=== PATIENT | female | born 1945 | race Hispanic/Latino ===

== ENCOUNTER 2017-01-27 18:38 | Emergency (ER) | payer MEDICARE ==
[2017-01-28 18:46] VITALS: BMI 21.7
== END 2017-01-27 19:52 | disposition left against medical advice (07) ==
LOC: ED 18:38
DX: Z02.89 Encounter for other administrative examinations (principal)

== ENCOUNTER 2017-01-28 08:15 | Inpatient (IN) | payer MEDICARE ==
[2017-01-28] MEDS ORDERED: Morphine 2 mg/ml ISec IVP STA (09:03)
[2017-01-28] MEDS: Sodium Chloride 0.9% 1,000 ML IV SCH ×2 (09:48→22:14)
[2017-01-28 09:51] LABS: ADD MANUAL DIFF? NO
--- NOTE | 2017-01-28 10:01 | ED PDOC ---
Arrival/HPI - General Chief Complaint: Lower Extremity Problem/Injury Time Seen by Provider: 01/28/17 08:48 Historian: Patient, Family (daughter) - History of Present Illness Narrative History of Present Illness (Text): 01/28/17 08:50 A 71 year old female, whose past medical history includes diabetes, left metatarsal amputation, and cardiac stents, is sent into the emergency department by senior software developer for admission. Patient reports a worsening infection to the right 5th toe for the past 2 and half weeks. She states she was placed on antibiotics by Dr. Watkins. Patient notes pain to the foot but she denies any fever, nausea, vomiting or any other complaints at this time. X Ray Service Engineer: Dr. Watkins PMD: Dr. Sands Vascular: Dr. Ramirez Time/Duration: > week Symptom Onset: Gradual Symptom Course: Worsening Quality: Other Activities at Onset: Rest Context: Home Past Medical History - Provider Review Nursing Documentation Reviewed: Yes - Past History Past History: Non-Contributing - Infectious Disease Hx of Infectious Diseases: None - Tetanus Immunization Tetanus Immunization: Unknown - Cardiac Hx Cardiac Disorders: Yes Hx Hypertension: Yes - Pulmonary Hx Chronic Obstructive Pulmonary Disease (COPD): No - Neurological Hx Neurological Disorder: Yes (neuropathy ble) Hx Transient Ischemic Attacks (TIA): No - HEENT Hx HEENT Disorder: Yes Hx Blind: No Hx Cataracts: Yes (Removed) Hx Deafness: No Hx Difficulty Chewing: No Hx Epistaxis: No Hx Glaucoma: No Hx Macular Degeneration: No - Renal Hx Renal Failure: No - Endocrine/Metabolic Hx Diabetes Mellitus Type 2: Yes - Hematological/Oncological Hx Blood Disorders: No Hx AIDS: No Hx Anemia: No Hx Cancer: No Hx Chemotherapy: No Hx Cirrhosis: No Hx Hepatitis A: No Hx Hepatitis B: No Hx Hepatitis C: No Hx Metastasis: No Hx Shingles: No Hx Unexplained Bleeding: No - Integumentary Hx Dermatological Disorder: No Hx Basal Cell Carcinoma: No Hx Eczema: No Hx Melanoma: No Hx Psoriasis: No Hx Squamous Cell Carcinoma: No - Musculoskeletal/Rheumatological Hx Musculoskeletal Disorders: No Hx Falls: No - Gastrointestinal Hx Gastrointestinal Disorders: No Hx Colostomy: No Hx Crohn's Disease: No Hx Diverticulitis: No Hx Gall Bladder Disease: No Hx Gastroesophageal Reflux: No Hx Ileostomy: No Hx Liver Failure: No Hx Pancreatitis: No HX Swallowing Problems: No Other/Comment: chronic constipation - Genitourinary/Gynecological Hx Genitourinary Disorders: No Hx Hematuria: No Hx Incontinence: No Hx Sexually Transmitted Diseases: No Hx Urinary Tract Infection: Yes Other/Comment: tubal - Psychiatric Hx Emotional Abuse: No Hx Physical Abuse: No Hx Substance Use: No - Surgical History Hx Amputation: Yes (Partial Left foot) Hx Appendectomy: Yes - Anesthesia Hx Anesthesia: Yes Hx Anesthesia Reactions: No Hx Malignant Hyperthermia: No - Suicidal Assessment Feels Threatened In Home Enviroment: No Family/Social History - Physician Review Nursing Documentation Reviewed: Yes Family/Social History: Unknown Family HX Smoking Status: Former Smoker Hx Alcohol Use: No Hx Substance Use: No Hx Substance Use Treatment: No Allergies/Home Meds Allergies/Adverse Reactions: Allergies aspartame Allergy (Mild, Verified 01/28/17 08:29) HEADACHE oxycodone Allergy (Mild, Verified 01/28/17 08:29) HEADACHE acetaminophen [From Percocet] Allergy (Verified 01/28/17 08:29) SHORTNESS OF BREATH atorvastatin calcium [From Lipitor] Allergy (Verified 01/29/17 08:34) Pt gets 'hyper' oxycodone HCl [From Percocet] Allergy (Verified 01/28/17 08:29) SHORTNESS OF BREATH Equal Allergy (Uncoded 01/28/17 08:29) HEADACHE Home Medications: Home Meds Medication Instructions Recorded Confirmed Aspirin [Ecotrin] 81 mg PO DAILY 05/21/16 01/28/17 Docusate [Colace] 100 mg PO BID 05/21/16 01/28/17 Insulin Lispro [Humalog] 0 - 7 units SQ ACHS PRN 05/21/16 01/28/17 Losartan [Cozaar] 25 mg PO DAILY 05/21/16 01/28/17 Metoprolol Tartrate 25 mg PO BID 05/21/16 01/28/17 metFORMIN [glucOPHAGE] 1,000 mg PO BID 05/21/16 01/28/17 traMADol [Ultram] 100 mg PO TID PRN 11/08/16 11/11/16 Ferrous Sulfate [Feosol] 325 mg PO DAILY 11/11/16 01/28/17 Levemir 10 units SC Q12H 11/11/16 01/28/17 Multivit-Min/FA/Lycopen/Lutein 1 each PO DAILY 11/11/16 01/28/17 [Centrum Silver Tablet] Simvastatin [Zocor] 20 mg PO DAILY 11/11/16 01/28/17 Review of Systems - Review of Systems Constitutional: absent: Fevers Eyes: absent: Vision Changes ENT: absent: Hearing Changes, Rhinorrhea Respiratory: absent: SOB Cardiovascular: absent: Chest Pain Gastrointestinal: absent: Abdominal Pain, Nausea, Vomiting Genitourinary Female: absent: Dysuria Musculoskeletal: Other (right toe infection with pain). absent: Back Pain, Neck Pain Skin: Skin Lesions. absent: Rash Neurological: absent: Headache, Dizziness Endocrine: absent: Polyuria Psychiatric: absent: Depression Physical Exam - Physical Exam Narrative Physical Exam (Text): Head: Atraumatic. Normocephalic. Eyes: PERRL. EOMI. Conjunctivae are not pale. ENT: Mucous membranes are moist and intact. Oropharynx is clear and symmetric. Neck: Supple. Full ROM. No JVD. No lymphadenopathy. Cardiovascular: Regular rate. Regular rhythm. Distal pulses in lower extremity weak. Pulmonary/Chest: No evidence of respiratory distress. Clear to auscultation bilaterally. No wheezing, rales or rhonchi. Abdominal: Soft and non-distended. There is no tenderness. No rebound, guarding, or rigidity. No organomegaly. Good bowel sounds. Back: No CVA tenderness. Extremities: Right foot fifth toe is erythematous and painful to palpation, no pus or drainage. Cool skin to feet. Medical shoe noted to left foot. Skin: Skin is erythematous to right fifth toe. Neurological: Alert, awake, and oriented. Motor and sensory exam grossly intact. Psychiatric: Good eye contact. Normal interaction, affect, and behavior. Vital Signs Reviewed: Yes Vital Signs Temp Pulse Resp BP Pulse Ox 01/28/17 13:00 64 18 155/81 H 98 01/28/17 12:53 63 155/62 H 01/28/17 11:34 63 164/53 H 01/28/17 08:18 97.9 F 80 18 181/83 H 99 Temperature: Afebrile Blood Pressure: Hypertensive Pulse: Regular Respiratory Rate: Normal Appearance: Positive for: Well-Appearing, Non-Toxic, Uncomfortable Pain Distress: Moderate Mental Status: Positive for: Alert and Oriented X 3 Medical Decision Making ED Course and Treatment: 01/28/17 08:50 Impression: A 71 year old female sent in for admission for a toe infection. Patient presents with note from Dr. Watkins, which states to admit the patient to Med/ Surg under Dr. Mckeon's services for diabetes, PAD, peripheral neuropathy, ulcer with osteomyelitis to the right 5th toe. Dr. Watkins writes to consult Dr. Mayank Ramirez (vascular intervention), Dr. Yoly Walker (vascular surgeon) and Dr. Santino Johnson (Infectious disease). Plan: Will obtain EKG, rught foot 5th digit x-ray, lab work, urinalysis. Will give Morphine and IV fluids for pain. Prior Visits: Notes and results from previous visits were reviewed. The patient last presented to the emergency department on 11/29/16 for evaluation of chest pain. Progress Notes: 01/28/17 10:[address] Mckeon, who is aware and agrees with the plan. I have discussed the results and plan with the patient, who expresses understanding. Patient given the opportunity to ask question, all questions were answered and there is agreement with the plan to be admitted to the hospital. 01/28/17 12:05 Right Foot X-ray: Creator : Moe Crabtree MD COMPARISON: None. FINDINGS: BONES: Degenerative changes are seen in the distal aspect of the 5th proximal phalanx. Small areas of lucency are also seen. Findings may represent osteomyelitis. Findings could be chronic degenerative changes JOINTS: Normal. SOFT TISSUES: Normal. OTHER FINDINGS: None. IMPRESSION: Degenerative changes are seen in the distal aspect of the 5th proximal phalanx. Small areas of lucency are also seen. Findings may represent osteomyelitis. Findings could be chronic degenerative changes - Lab Interpretations Microbiology Results: Microbiology Results 01/28/17 09:10 Blood Blood Culture - Preliminary NO GROWTH AFTER 4 DAYS 01/28/17 09:10 Blood Blood Culture - Preliminary NO GROWTH AFTER 4 DAYS 01/28/17 10:22 Urine Urine Culture - Final No Growth (<1,000 CFU/ML) Lab Results: 01/28/17 09:10 01/28/17 09:10 Lab Results 01/28/17 10:22: Urine Color Yellow, Urine Appearance Clear, Urine pH 7.0, Ur Specific [place] 1.025, Urine Protein 100 H, Urine Glucose (UA) Negative, Urine Ketones Trace H, Urine Blood Negative, Urine Nitrate Negative, Urine Bilirubin Negative, Urine Urobilinogen 0.2, Ur Leukocyte Esterase Negative, Urine RBC Negative, Urine WBC Negative, Ur Epithelial Cells 0 - 2 01/28/17 09:10: WBC 9.5, RBC 4.02, Hgb 11.3 L, Hct 33.7 L, MCV 83.8, MCH 28.1, MCHC 33.5, RDW 12.9, Plt Count 227, MPV 10.2, Gran % 74.5 H, Lymph % (Auto) 20.4 L, [place] % (Auto) 4.0, Eos % (Auto) 1.0 L, Baso % (Auto) 0.1, Gran # 7.10 H , Lymph # 1.9, [place] # 0.4, Eos # 0.1, Baso # 0.01, PT 11.5, INR 1.06, APTT 25.1 , Sodium 140, Potassium 4.4, Chloride 98, Carbon Dioxide 26, Anion Gap 20, BUN 24 H, Creatinine 0.7, Est GFR ( Amer) > 60, Est GFR (Non-Af Amer) > 60, Random Glucose 202 H, Calcium 10.1, Total Bilirubin 0.6, AST 25, ALT 18, Alkaline Phosphatase 54, C-React Prot High Sens 5.48 H, Total Protein 8.0, Albumin 4.1, Globulin 3.9, Albumin/Globulin Ratio 1.1 I have reviewed the lab results: Yes - RAD Interpretation Radiology Orders: 01/28/17 09:04 FOOT RIGHT 5TH DIGIT (TOE) [RAD] Stat - Medication Orders Current Medication Orders: Aspirin (Ecotrin) 81 mg PO DAILY [facility] Last Admin: 02/01/17 10:15 Dose: 81 MG Docusate Sodium (Colace) 100 mg PO BID [facility] Last Admin: 02/01/17 18:26 Dose: 100 MG Enoxaparin Sodium (Lovenox) 40 mg SC DAILY [facility] PRN Reason: Protocol Last Admin: 02/01/17 10:16 Dose: 40 MG Protocol for PTT Monitoring Document 02/01/17 10:16 (Rec: 02/01/17 10:16 [email or web address]) Protocol Protocol for PTT Monitoring Following clinical pathway protocol (regime/therapy) Subcutaneous Administrations Document 02/01/17 10:16 (Rec: 02/01/17 10:16 [email or web address]) Charges for Administration # of Subcutaneous Administrations 1 Ferrous Sulfate (Feosol) 324 mg PO DAILY [facility] Last Admin: 02/01/17 10:15 Dose: 324 MG Home Med (Home Med) 1 unit PO DAILY [facility] Last Admin: 02/01/17 10:16 Dose: 1 UNIT Hydromorphone HCl (Dilaudid) 1 mg IVP Q4H PRN PRN Reason: Pain, moderate (4-7) Last Admin: 02/02/17 03:32 Dose: 1 MG MAR Pain Assessment Document 02/02/17 03:32 AJP (Rec: 02/02/17 03:33 AJP [email or web address]) Pain Reassessment Is this a pain reassessment? No Sleep Is patient sleeping during reassessment? No Presence of Pain Presence of Pain Yes Pain Scale Used Pain Scale Used Numeric Location Pain Location Body Site Foot Description Description Constant Intensity of Pain at present 10 IVP Administration Document 02/02/17 03:32 AJP (Rec: 02/02/17 03:33 AJP [email or web address]) Charges for Administration # of IVP Administrations 1 Vancomycin HCl (Vancomycin 1gm) 250 mls @ 167 mls/hr IVPB Q12H SUSY PRN Reason: Protocol Last Admin: 02/02/17 05:30 Dose: 167 MLS/HR eMAR Start Stop Document 02/02/17 05:30 AJP (Rec: 02/02/17 05:30 AJP [email or web address]) Intravenous Solution Start Date 02/02/17 Start Time 05:30 Meropenem 1g/NS 100mL IVPB (Meropenem 1g/Ns 100ml Ivpb) 100 mls @ 100 mls/hr IVPB Q8 SUSY PRN Reason: Protocol Stop: 02/04/17 22:01 Last Admin: 02/02/17 05:29 Dose: 100 MLS/HR eMAR Start Stop Document 02/02/17 05:29 AJP (Rec: 02/02/17 05:29 AJP [email or web address]) Intravenous Solution Start Date 02/02/17 Start Time 05:29 Insulin Detemir (Levemir) 10 unit SC Q12H [facility] Last Admin: 02/01/17 22:00 Dose: 10 UNIT Subcutaneous Administrations Document 02/01/17 22:00 AJP (Rec: 02/02/17 05:24 AJP [email or web address]) Injection Site MAR Injection Site Right Arm Charges for Administration # of Subcutaneous Administrations 1 Insulin Human Regular (Humulin R Med) 0 units SC ACHS SUSY PRN Reason: Protocol Last Admin: 02/01/17 21:58 Dose: 10 UNITS MAR Blood Glucose Document 02/01/17 21:58 AJP (Rec: 02/01/17 21:59 [facility] [email or web address]) Blood Glucose Finger Stick Blood Glucose (70-120) 187 Subcutaneous Administrations Document 02/01/17 21:58 AJP (Rec: 02/01/17 21:59 [facility] PURCHASING2) Charges for Administration # of Subcutaneous Administrations 1 Losartan Potassium (Cozaar) 25 mg PO DAILY [facility] Last Admin: 02/01/17 10:15 Dose: 25 MG MAR Pulse and Blood Pressure Document 02/01/17 10:15 (Rec: 02/01/17 10:15 [email or web address]) Pulse Pulse Rate (60-90) 63 Blood Pressure Blood Pressure (100/60-150/90) 153/51 Metoprolol Tartrate (Lopressor) 25 mg PO BID [facility] Last Admin: 02/01/17 18:27 Dose: 25 MG MAR Pulse and Blood Pressure Document 02/01/17 18:27 (Rec: 02/01/17 18:27 [email or web address]) Pulse Pulse Rate (60-90) 53 Blood Pressure Blood Pressure (100/60-150/90) 162/63 Morphine Sulfate (Morphine) 4 mg IVP Q4H PRN PRN Reason: Pain, severe (8-10) Last Admin: 02/01/17 15:45 Dose: 4 MG MAR Pain Assessment Document 02/01/17 15:45 (Rec: 02/01/17 16:20 [email or web address]) Pain Reassessment Is this a pain reassessment? No Presence of Pain Presence of Pain Yes IVP Administration Document 02/01/17 15:45 (Rec: 02/01/17 16:20 [email or web address]) Charges for Administration # of IVP Administrations 1 Re-Assess: MAR Pain Assessment Document 02/01/17 16:45 (Rec: 02/01/17 18:23 [email or web address]) Pain Reassessment Is this a pain reassessment? Yes Presence of Pain Presence of Pain No Zolpidem Tartrate (Ambien) 5 mg PO HS PRN; Protocol PRN Reason: Insomnia Last Admin: 02/01/17 21:58 Dose: 5 MG Behavioural Document 02/01/17 21:58 AJP (Rec: 02/01/17 21:58 AJP [email or web address]) Maintenance Maintenance Dose No Nonmedicinal Nonmedicinal Interventions Redirect Behavior Behavior for Medication: Anxiety Insomnia Discontinued Medications Atorvastatin Calcium (Lipitor) 10 mg PO HS SUSY Last Admin: 01/28/17 22:14 Dose: Bacitracin (Bacitracin) Confirm Administered Dose 30 gm .ROUTE .STK-MED ONE Stop: 01/30/17 07:16 Bacitracin (Bacitracin) Confirm Administered Dose 50,000 unit .ROUTE .STK-MED ONE Stop: 01/30/17 08:13 Last Admin: 01/30/17 08:20 Dose: 50,000 UNIT Comments: ORM Administered Route: IR Bupivacaine HCl (Marcaine 0.5%) Confirm Administered Dose 30 ml .ROUTE .STK-MED ONE Stop: 01/30/17 07:16 Last Admin: 01/30/17 08:50 Dose: 6 ML Cefazolin Sodium (Ancef) Confirm Administered Dose 1 gm .ROUTE .STK-MED ONE Stop: 01/30/17 07:16 Fentanyl (Fentanyl) Confirm Administered Dose 100 mcg .ROUTE .STK-MED ONE Stop: 01/30/17 07:42 Home Med (Home Med) 1 unit PO DAILY [facility] Last Admin: 01/29/17 10:33 Dose: Hydromorphone HCl (Dilaudid) Confirm Administered Dose 0.5 mg .ROUTE .STK-MED ONE Stop: 01/30/17 09:41 Hydromorphone HCl (Dilaudid) 0.5 mg IVP .STK-MED ONE Stop: 01/30/17 09:41 Last Admin: 01/30/17 09:40 Dose: 0.5 MG Hydromorphone HCl (Dilaudid) 0.5 mg IVP STAT STA Stop: 01/30/17 10:10 Hydromorphone HCl (Dilaudid) 1 mg IVP Q6 SUSY Hydromorphone HCl (Dilaudid) 1 mg IVP Q6H PRN PRN Reason: Pain, moderate (4-7) Last Admin: 01/31/17 06:27 Dose: 1 MG MAR Pain Assessment Document 01/31/17 06:27 TODD (Rec: 01/31/17 06:28 TODD [id number]) Pain Reassessment Is this a pain reassessment? Yes Sleep Is patient sleeping during reassessment? No Presence of Pain Presence of Pain Yes Pain Scale Used Pain Scale Used Numeric Location Left, Right or Bilateral Right Pain Location Body Site 4th Toe Description Description Intermittent Pain Behavior Facial Grimacing Alleviating Factors/Management Medication Techniques Alleviating Factors Medication IVP Administration Document 01/31/17 06:27 TODD (Rec: 01/31/17 06:28 TODD [id number]) Charges for Administration # of IVP Administrations 1 Re-Assess: [facility] Pain Assessment Document 01/31/17 07:27 TODD (Rec: 01/31/17 07:31 TODD [id number]) Pain Reassessment Is this a pain reassessment? Yes Sleep Is patient sleeping during reassessment? No Presence of Pain Presence of Pain No Pain Scale Used Pain Scale Used Numeric Sodium Chloride (Sodium Chloride 0.9%) 1,000 mls @ 100 mls/hr IV .Q10H SUSY Last Admin: 01/30/17 04:30 Dose: 100 MLS/HR eMAR Start Stop Document 01/30/17 04:30 TODD (Rec: 01/30/17 05:12 TODD [id number]) Intravenous Solution Start Date 01/30/17 Start Time 04:30 Piperacillin Sod/Tazobactam Sod (Zosyn 3.375 In Ns 100ml) 100 mls @ 200 mls/hr IVPB STAT STA PRN Reason: Protocol Stop: 01/28/17 11:05 Last Admin: 01/28/17 11:34 Dose: 200 MLS/HR eMAR Start Stop Document 01/28/17 11:34 OCS (Rec: 01/28/17 11:34 [id number] Intravenous Solution Start Date 01/28/17 Start Time 11:34 Meropenem 1 gm/ Sodium (Chloride) 100 mls @ 100 mls/hr IVPB Q8 SUSY PRN Reason: Protocol Stop: 02/04/17 22:01 Last Admin: 02/01/17 06:28 Dose: 100 MLS/HR eMAR Start Stop Document 02/01/17 06:28 AJP (Rec: 02/01/17 06:28 AJP [id number]) Intravenous Solution Start Date 02/01/17 Start Time 06:28 Lactated Ringer's (Lactated Ringer's) 1,000 mls @ 75 mls/hr IV .[id number] SUSY Stop: 01/30/17 11:01 Ketorolac Tromethamine (Toradol) 15 mg IM ONCE ONE Stop: 01/30/17 08:47 Ketorolac Tromethamine (Toradol) Confirm Administered Dose 15 mg .ROUTE .STK- MED ONE Stop: 01/30/17 09:18 Ketorolac Tromethamine (Toradol) 15 mg IVP .STK-MED ONE Stop: 01/30/17 09:16 Last Admin: 01/30/17 09:15 Dose: 15 MG Lactulose (Enulose) 30 gm PO STAT STA Stop: 02/01/17 12:22 Last Admin: 02/01/17 13:30 Dose: 30 GM Lidocaine HCl (Lidocaine 1% (20ml)) Confirm Administered Dose 20 ml .ROUTE .STK- MED ONE Stop: 01/30/17 07:43 Midazolam HCl (Versed Inj) Confirm Administered Dose 2 mg .ROUTE .STK-MED ONE Stop: 01/30/17 07:42 Morphine Sulfate (Morphine) 2 mg IVP STAT STA Stop: 01/28/17 09:04 Last Admin: 01/28/17 09:48 Dose: 2 MG MAR Pain Assessment Document 01/28/17 09:48 OCS (Rec: 01/28/17 09:49 [id number] Pain Reassessment Is this a pain reassessment? No Sleep Is patient sleeping during reassessment? Yes Pain Scale Used Pain Scale Used Numeric Location Left, Right or Bilateral Right Pain Location Body Site Foot Description Description Constant Intensity of Pain at present 10 Pain Behavior Irritability Aggravating Factors ADL's IVP Administration Document 01/28/17 09:48 OCS (Rec: 01/28/17 09:49 [id number] Charges for Administration # of IVP Administrations 1 Morphine Sulfate (Morphine) 2 mg IVP Q4H PRN PRN Reason: Pain, moderate (4-7) Last Admin: 01/30/17 12:08 Dose: 2 MG MAR Pain Assessment Document 01/30/17 12:08 BIR (Rec: 01/30/17 12:08 [id number] Pain Reassessment Is this a pain reassessment? No Sleep Is patient sleeping during reassessment? No Presence of Pain Presence of Pain Yes IVP Administration Document 01/30/17 12:08 DELFINO (Rec: 01/30/17 12:08 BIR [id number] Charges for Administration # of IVP Administrations 1 Nitroglycerin (Nitro-Bid 2% Oint) 1 ea TOP STAT ONE Stop: 01/30/17 09:01 Propofol (Diprivan) Confirm Administered Dose 200 mg .ROUTE .STK-MED ONE Stop: 01/30/17 07:42 - Scribe Statement The provider has reviewed the documentation as recorded by the Scribe Mariama Luna Provider Scribe Attestation: All medical record entries made by the Scribe were at my direction and personally dictated by me. I have reviewed the chart and agree that the record accurately reflects my personal performance of the history, physical exam, medical decision making, and the department course for this patient. I have also personally directed, reviewed, and agree with the discharge instructions and disposition. Disposition/Present on Arrival - Present on Arrival Any Indicators Present on Arrival: No History of DVT/PE: No History of Uncontrolled Diabetes: No Urinary Catheter: No History of Decub. Ulcer: No History Surgical Site Infection Following: None - Disposition Have Diagnosis and Disposition been Completed?: Yes Diagnosis: Cellulitis, Osteomyelitis Disposition: HOME/ ROUTINE Disposition Time: 09:15 Patient Plan: Admission Condition: SERIOUS
[2017-01-28 10:09] LABS: BASO # 0.01 K/mm3 (0.0-2.0); BASO % 0.1 % (0.0-3.0); EOS # 0.1 (0.0-0.7); GRAN % 74.5 % (50.0-68.0); HEMATOCRIT 33.7 % (36.0-48.0); LYMPH # 1.9 (1.2-3.4); LYMPH % 20.4 % (22.0-35.0); MEAN CELL VOLUME 83.8 fL (80.0-105.0); MEAN CORPUSCULAR HEMOGLOBIN 28.1 pg (25.0-35.0); MEAN CORPUSCULAR HGB CONC 33.5 g/dl (31.0-37.0); MEAN PLATELET VOLUME 10.2 fl (7.0-11.0); MONO # 0.4 (0.1-0.6); PLATELET COUNT 227 10^3/uL (120.0-450.0); RED CELL DISTRIBUTION WIDTH 12.9 % (11.5-14.5); WHITE BLOOD COUNT 9.5 10^3/ul (4.5-11.0)
[2017-01-28 10:13] LABS: ALB/GLOB RATIO 1.1 (1.1-1.8); ALKALINE PHOSPHATASE 54 U/L (38-133); ALT/SGPT 18 U/L (7-56); AST/SGOT 25 U/L (15-39); BILIRUBIN,TOTAL 0.6 mg/dL (0.2-1.3); BLOOD UREA NITROGEN 24 mg/dL (7-21); CALCIUM 10.1 mg/dL (8.4-10.5); CARBON DIOXIDE 26 mmol/L (21-33); CHLORIDE 98 mmol/L (98-107); GFR AFRICAN-AMERICAN > 60; GLUCOSE,RANDOM 202 mg/dL (70-110); POTASSIUM 4.4 mmol/L (3.6-5.0); SODIUM 140 mmol/L (132-148)
[2017-01-28 10:16] LABS: INR 1.06 (0.93-1.08); PARTIAL THROMBOPLASTIN TIME 25.1 Seconds (23.7-30.8)
[2017-01-28] MEDS ORDERED: Piperacillin/Tazobact 3.375 gm 100 ML IVPB STA (10:36)
[2017-01-28 10:39] LABS: URINE BILIRUBIN NEGATIVE (NEGATIVE); URINE BLOOD NEGATIVE (NEGATIVE); URINE GLUCOSE (UA) NEGATIVE (NEGATIVE); URINE KETONE TRACE mg/dL (NEGATIVE); URINE LEUKOCYTE ESTERASE NEGATIVE Leu/uL (NEGATIVE); URINE PROTEIN 100 mg/dL (<30 mg/dL); URINE UROBILINOGEN 0.2 E.U./dL (<1 E.U./dL)
[2017-01-28 10:41] LABS: URINE APPEARANCE CLEAR (CLEAR); URINE COLOR YELLOW (YELLOW)
[2017-01-28 10:45] LABS: URINE EPITHELIAL CELLS 0 - 2 /hpf (0-5); URINE RBC NEGATIVE /hpf (0-2); URINE WBC NEGATIVE /hpf (0-6)
--- NOTE | 2017-01-28 12:06 | RAD ---
PROCEDURE: Right Foot Radiographs. HISTORY: osteomyelitis COMPARISON: None. FINDINGS: BONES: Degenerative changes are seen in the distal aspect of the 5th proximal phalanx. Small areas of lucency are also seen. Findings may represent osteomyelitis. Findings could be chronic degenerative changes JOINTS: Normal. SOFT TISSUES: Normal. OTHER FINDINGS: None. IMPRESSION: Degenerative changes are seen in the distal aspect of the 5th proximal phalanx. Small areas of lucency are also seen. Findings may represent osteomyelitis. Findings could be chronic degenerative changes
[2017-01-28] MEDS: Insulin Reg-MEDIUM-Coverage SC SCH ×3 (12:57→22:15)
--- NOTE | 2017-01-28 13:28 | HP ---
CHIEF COMPLAINT AND HISTORY OF PRESENT ILLNESS: This is a 71-year-old female who is coming into the hospital because of right 5th toe pain. The patient says that this pain has been going on for many w eeks. I spoke with Dr. Watkins, who states that he is concerned that the patient may have osteomyeliti s and says that he would like further evaluation by vascular and infectious disease. The patient say s that it has been causing worsening pain. She says that putting weight, worsens her pain. She has a pain that is 7/10. She has no fevers or chills. All other review of symptoms are within normal limits except as mentioned. No abdominal pain, no wayne k pain. No dysuria or frequency, no nocturia. ALLERGIES: , OXYCODONE, ACETAMINOPHEN/OXYCODONE. HOME MEDICATIONS: Aspirin, Colace, Humalog, Cozaar, metformin, , iron, Levemir, Zocor. PAST MEDICAL HISTORY: Left foot ulcer, peripheral arterial disease, neuropathy, hypertension. PAST SURGICAL HISTORY: Appendectomy, left leg bypass. FAMILY HISTORY: Father at 44 due to alcoholism. Mother at 80. She was diabetic. SOCIAL HISTORY: She lives at home with her spouse and daughter. She is retired as a tailor. She de nies alcohol or drug use/abuse. VITALS: Temperature is 97.9, pulse of 80, blood pressure is 181/83, respirations 18, O2 saturation 9 9%. Height 5 feet 2, weight is 119 pounds. GENERAL: Patient lying in bed, flat, and in no apparent distress. HEAD AND NECK EXAM: Atraumatic, normocephalic. Conjunctivae are pink. Throat clear and mouth with moist mucosa. Oropharynx benign. EYES: Extraocular movements are intact. PERRLA. NECK: Supple. No JVD, thyromegaly, or adenopathy. No bruits. HEART: S1 and S2 regular rate and rhythm. No murmurs, rubs, or gallops. LUNGS: Clear to auscultation bilaterally. No wheezing rales or rhonchi appreciated. No retraction s on exam. ABDOMEN: Soft, nontender, nondistended. Bowel sounds are positive in all quadrants. No rebound. No hepatosplenomegaly. EXTREMITIES: Right 5th toe is painful on palpation. There is swelling. There is erythema. NEURO: No facial asymmetry, tongue is midline, no uvula deviation. Power is 5/5 in upper extremity and 5/5 in lower extremity. Sensation is normal in upper extremity and lower extremity. PSYCH: Awake, alert, oriented x3. No anxiety or depression symptoms. Good insight. Normal affec t. : No CVA tenderness VASCULAR: 2+ pulses in carotid and pedal pulses. SKIN: No erythema or abnormal nodules noted. SPINE: Normal curvature. LYMPHADENOPATHY: No anterior cervical or posterior cervical adenopathy. No inguinal adenopathy. LABORATORIES: White count of 9.5, hemoglobin 11.3, platelet count is 227. INR is 1.06. Sodium 140, potassium is 4.4, creatinine is 0.7, alk phos is 54. Urine shows ketones are negative, blood is neg ative, nitrites are negative. An EKG done. ASSESSMENT: 1. Right 5th toe cellulitis with possible osteomyelitis. 2. Diabetes type 2. 3. Dyslipidemia. 4. Hypertension. 5. Peripheral arterial disease with left leg bypass. PLAN: The patient is going to be admitted to the hospital for right 5th toe pain, and she is diabeti c. This is most likely a diabetic foot ulcer. I did review an MRI that was done on 12/16/2016 that showed 5th toe phalanx osteomyelitis. The patient is going to be admitted for further evaluation. S he was given IV fluids. She is on Levemir for her diabetes. She is on Lipitor for dyslipidemia. Sh e is on . She is on losartan for hypertension. She is going to be continuing with antibiotics. I will get Dr. Johnson to evaluate. I will also get Dr. Watkins to evaluate further. Will continue to follow closely. Will await further input from the specialist. Jose Mckeon MD cc: [id number] TT: 01/28/2017 13:27:35 jn
--- NOTE | 2017-01-28 14:47 | CP.PCM.CON ---
<Isidro Gipson - Last Filed: 01/31/17 15:54> History of Present Illness - History of Present Illness History of Present Illness: VASCULAR SURGERY CONSULT FOR DR. DAY Consult: PAD 71F presents to [facility] with pain of the right 5th toe. She states the pain began weeks ago and has been progressively getting worse. Patient states the toe was becoming ischemic and turning a dark color 12 days ago and went to her tree wrapper who started her on antibiotics and took a wound culture that came back pseudomonas. Patient states since then, the complexion of the toes as improved. It is currently erythematous. Currently, Battery Vent Plug Inserter Dr. Watkins plans to take patient to the OR for right 5th toe amputation and further evaluation PMH: DM, HLD PSH: left metatarsal amputation, left lower extremity bypass, appendectomy Social: denies tobacco, alcohol, illicit drugs Allergies: aspartame, oxycodone, acetaminophen Past Patient History - Infectious Disease Hx of Infectious Diseases: None - Tetanus Immunizations Tetanus Immunization: Unknown - Past Medical History & Family History Past Medical History?: Yes - Past Social History Smoking Status: Former Smoker - CARDIAC Hx Cardiac Disorders: Yes Hx Hypertension: Yes - PULMONARY Hx Chronic Obstructive Pulmonary Disease (COPD): No - NEUROLOGICAL Hx Neurological Disorder: Yes (neuropathy ble) Hx Transient Ischemic Attacks (TIA): No - HEENT Hx HEENT Problems: Yes Hx Blind: No Hx Cataracts: Yes (Removed) Hx Deafness: No Hx Difficulty Chewing: No Hx Epistaxis: No Hx Glaucoma: No Hx Macular Degeneration: No - RENAL Hx Renal Failure: No - ENDOCRINE/METABOLIC Hx Diabetes Mellitus Type 2: Yes - HEMATOLOGICAL/ONCOLOGICAL Hx Blood Disorders: No Hx AIDS: No Hx Anemia: No Hx Cancer: No Hx Chemotherapy: No Hx Cirrhosis: No Hx Hepatitis A: No Hx Hepatitis B: No Hx Hepatitis C: No Hx Metastesis: No Hx Shingles: No Hx Unexplained Bleeding: No - INTEGUMENTARY Hx Dermatological Problems: No Hx Basil Cell: No Hx Eczema: No Hx Melanoma: No Hx Psoriasis: No Hx Squamous Cell: No - MUSCULOSKELETAL/RHEUMATOLOGICAL Hx Musculoskeletal Disorders: No Hx Falls: No - GASTROINTESTINAL Hx Gastrointestinal Disorders: No Hx Colostomy: No Hx Crohn's Disease: No Hx Diverticulitis: No Hx Gall Bladder Disease: No Hx Gastroesophageal Reflux: No Hx Ileostomy: No Hx Liver Failure: No Hx Pancreatitis: No HX Swallowing Problems: No Other/Comment: chronic constipation - GENITOURINARY/GYNECOLOGICAL Hx Genitourinary Disorders: No Hx Hematuria: No Hx Incontinence: No Hx Sexually Transmitted Disorders: No Hx Urinary Tract Infection: Yes Other/Comment: tubal - PSYCHIATRIC Hx Emotional Abuse: No Hx Physical Abuse: No Hx Substance Use: No - SURGICAL HISTORY Hx Amputation: Yes (Partial Left foot) Hx Appendectomy: Yes - ANESTHESIA Hx Anesthesia: Yes Hx Anesthesia Reactions: No Hx Malignant Hyperthermia: No Meds Home Medications: Home Medication List Medication Instructions Recorded Confirmed Type Insulin Detemir [Levemir] 10 unit SC Q12H #0 unit 02/03/17 02/03/17 Rx Insulin Human Regular-MED [HumuLIN 0 units SC ACHS #0 ml 02/03/17 02/03/17 Rx R MED] Zolpidem [Ambien] 5 mg PO HS PRN #0 tab 02/03/17 02/03/17 Rx Allergies/Adverse Reactions: Allergies Allergy/AdvReac Type Severity Reaction Status Date / Time aspartame Allergy Mild HEADACHE Verified 02/03/17 20:05 oxycodone Allergy Mild HEADACHE Verified 02/03/17 20:05 acetaminophen [From Percocet] Allergy SHORTNESS Verified 02/03/17 20:05 OF BREATH atorvastatin calcium Allergy Pt gets Verified 02/03/17 20:05 [From Lipitor] 'hyper' oxycodone HCl [From Percocet] Allergy SHORTNESS Verified 02/03/17 20:05 OF BREATH Equal Allergy HEADACHE Uncoded 02/03/17 20:05 - Medications Medications: Current Medications Aspirin (Ecotrin) 81 mg PO DAILY [facility] Last Admin: 01/28/17 11:34 Dose: 81 mg Atorvastatin Calcium (Lipitor) 10 mg PO [facility] Docusate Sodium (Colace) 100 mg PO BID [facility] Last Admin: 01/28/17 11:34 Dose: 100 mg Ferrous Sulfate (Feosol) 324 mg PO DAILY [facility] Last Admin: 01/28/17 12:57 Dose: 324 mg Sodium Chloride (Sodium Chloride 0.9%) 1,000 mls @ 100 mls/hr IV .Q10H [facility] Last Admin: 01/28/17 09:48 Dose: 100 mls/hr Insulin Detemir (Levemir) 10 unit SC Q12H [facility] Insulin Human Regular (Humulin R Med) 0 units SC ACHS [facility] PRN Reason: Protocol Last Admin: 01/28/17 12:57 Dose: Not Given Losartan Potassium (Cozaar) 25 mg PO DAILY [facility] Last Admin: 01/28/17 12:53 Dose: 25 mg Metoprolol Tartrate (Lopressor) 25 mg PO BID [facility] Last Admin: 01/28/17 11:34 Dose: 25 mg Physical Exam - Constitutional Appears: Non-toxic, No Acute Distress - Head Exam Head Exam: ATRAUMATIC - Eye Exam Eye Exam: EOMI, PERRL - ENT Exam ENT Exam: Mucous Membranes Moist - Respiratory Exam Respiratory Exam: Clear to Auscultation Bilateral, NORMAL BREATHING PATTERN - Cardiovascular Exam Cardiovascular Exam: REGULAR RHYTHM, +S1, +S2 - GI/Abdominal Exam GI & Abdominal Exam: Soft. absent: Distended, Firm, Guarding, Rebound, Rigid, Tenderness - Extremities Exam Extremities exam: Positive for: tenderness (right 5th toe tender to palpation ) , pedal pulses present (b/l pedal pulses palpable DP/TP) - Neurological Exam Neurological exam: Alert, Oriented x3 - Skin Skin Exam: Dry, Intact, Normal Color, Warm Additional comments: 5th right toes cellulitis Results - Vital Signs Recent Vital Signs: Last Vital Signs Temp 97.9 F 01/28/17 08:18 Pulse 64 01/28/17 13:00 Resp 18 01/28/17 13:00 BP 155/81 H 01/28/17 13:00 Pulse Ox 98 01/28/17 13:00 - Labs Result Diagrams: 01/28/17 09:10 01/28/17 09:10 Assessment & Plan - Assessment and Plan (Free Text) Assessment: 71F with 5th right toe pain and cellulitis MRI: suspicious for osteomyelitis of right 5th toe Plan: - Patient sent for lower extremity arterial non-invasive ultrasound - await results - Patient tentatively on OR for toe amputation by podiatry - IR Dr. Mayank Ramirez Consulted Discussed with Dr. Shay Gipson, PGY1 <Yoly Day Y - Last Filed: 02/04/17 13:19> Physical Exam - Extremities Exam Additional comments: patient has no palpable pedal pulses Results - Vital Signs Recent Vital Signs: Last Vital Signs Temp 98.4 F 02/03/17 07:47 Pulse 61 02/03/17 09:28 Resp 18 02/03/17 07:47 BP 142/48 L 02/03/17 09:28 Pulse Ox 98 02/03/17 07:47 - Labs Result Diagrams: 02/03/17 09:50 02/03/17 09:50 Labs: Laboratory Results - last 24 hr 02/03/17 17:19 POC Glucose (mg/dL) 196 H
--- NOTE | 2017-01-28 17:20 | US ---
PROCEDURE: Lower extremity LAVON exam HISTORY: Peripheral vascular disease. Previous left TMA. Right lower extremity tibial intervention in 2017. Ischemic right 5th toe. PHYSICIAN(S): Mayank Ramirez MD. FINDINGS: The resting LAVON's are mildly abnormal: Right, 0.88 and left, 0.71 The brachial systolic pressures are symmetric. The high thigh pressures and waveforms are relatively normal. The calf PVR waveforms augment normally. No significant gradients are noted across the thighs. The ankle PVR waveforms are mildly blunted but pulsatile bilaterally. The findings are consistent with bilateral tibial disease. The metatarsal PVR waveforms are moderately to severely blunted. IMPRESSION: 1. Mildly abnormal ABIs at rest. 2. Bilateral tibial disease. The ankle PVR waveforms are pulsatile and mildly blunted.
--- NOTE | 2017-01-28 18:27 | CARD ---
APPROVED REPORT EKG Measurement Heart [id number] <Conclusion> Normal sinus rhythm Normal ECG
[2017-01-28 18:46] VITALS: BMI 21.7
[2017-01-28] MEDS: Vancomycin 1gm in NS 250ml 250 ML IVPB SCH (19:00)
[2017-01-28] MEDS: Insulin Detemir 100 units/ml Vial (Levemir) SC SCH ×2 (20:48→22:13)
[2017-01-28] MEDS: Meropenem 1 GM in Sodium Chloride 0.9% 100 ML IVPB SCH (22:15)
[2017-01-29] MEDS: Vancomycin 1gm in NS 250ml 250 ML IVPB SCH ×2 (05:00→17:50)
[2017-01-29] MEDS: Sodium Chloride 0.9% 1,000 ML IV SCH (05:01)
[2017-01-29] MEDS: Meropenem 1 GM in Sodium Chloride 0.9% 100 ML IVPB SCH ×3 (05:01→21:56)
--- NOTE | 2017-01-29 05:30 | CON ---
DATE: 01/28/2017 LOCATION: Room 365, bed 2. REASON FOR CONSULTATION: The patient has a very painful chronic ulcer of the right fifth toe with os teomyelitis of the digit. HISTORY OF PRESENT ILLNESS: This is a 71-year-old female patient, a longtime patient of mine, who rodriguez s been treated over the years because of insulin-dependent diabetes and off and on foot ulceration an d infection. She underwent TMA of the left foot last year, several hospitalizations and surgeries le ading up to the TMA, including a surgical bypass by Dr. Day. The left foot is now healed. Her pain increased on the right foot in the late fall and winter of last year. She saw Dr. Ramirez and had rep eat angiography and some vascular intervention, although minimal improvement was noted. He recommend ed being cautious with any foot surgery when we spoke to him about her developing some ulcer and cyan osis of the right fifth toe. She has been treated for the last 8-10 weeks for local wound care. We have utilized topical nitroglycerin ointment on the pulse points and the overall appearance of the wo und has remained nongangrenous and reduced cyanosis, but the pain has increased severely. Subsequent x-rays revealed osteomyelitis in the proximal phalanx of the fifth toe on the right foot and a late November MRI confirmed osteomyelitis of the right fifth toe. The patient has noted over the last sev eral weeks, increasing pain and discomfort focusing on the right foot at the level of the fifth toe a nd metatarsal. The wound has in fact reduced in its presence. No additional cyanosis. Has been not ed there has been recently some additional soreness in the fourth interspace noted by the patient and she is having pain now almost daily that are not controlled successfully with this any pain medicine that she is not allergic to. We considered admitting 3 weeks ago for vascular workup and amputation of the fifth toe, but the patient postponed, looking into both acupuncture for pain control and carri abis treatments which she looked into and did not qualify for, for her condition. Throughout this we have kept her in appropriate wound care and maintaining her nitroglycerin ointment used on the right proximal foot. She was seen yesterday in the office as an emergency and referred to the ED for admi ssion and Dr. Mckeon was contacted for medical workup as well as a specialist consultation. PAST MEDICAL HISTORY: Reviewed. She is an insulin-dependent diabetic with advanced painful hypersen sitive neuropathy. She has diagnosed peripheral artery disease on both lower extremities by vascular and controlled hypertension. HOME MEDICATIONS: Include Levemir, metformin, Zocor, Humalog, and aspirin. PAST SURGICAL HISTORY: Includes appendectomy years ago and more recently last year, a left leg femor al to dorsalis pedis bypass by Dr. Day. FAMILY HISTORY: Both parents are . Her mother was a diabetic patient. SOCIAL HISTORY: She became a last year and continues to live at home with a close family. She denies any use of alcohol or tobacco or other drug abuse. ALLERGIES: SHE NOTES CONFIRMED ALLERGIES TO PERCOCET, MEDICATION INCLUDING BOTH ACETAMINOPHEN AND OX YCODONE. REVIEW OF SYSTEMS: Essentially unremarkable except for that noted in the above history of present il lness. PHYSICAL EXAMINATION: The patient is seen in bed this evening at 7:00, alert and oriented x 3 and wa tching television. She complains of pain in the right fifth toe and metatarsal area, and shooting pa in into the right foot as well as pain in both feet consistent with her long-term hypersensitive neur opathy. The pulses are very weak to palpation, almost absent. The color is pallorous but no evidenc e of cyanosis except on the medial side of the right fifth toe which is moist and secretive. The jennifer ginal draining sinus over the dorsal lateral aspect of the right fifth toe appears to have an eschar on it. The overall cyanosis of several weeks ago on the right fifth toe and forefoot appears improve d, possibly secondary to the weeks of topical nitroglycerin. The left stump is clean and dry. Some left foot pallor but no evidence of cyanosis. There are no decubitus on either foot or ankle and the re is no calf tenderness in the muscles, except for the hypersensitive neuropathy. There is no edema . There is no significant erythema and no odor to the right foot. There is no evidence of lymphangi tis. LABORATORY AND X-RAY DATA: The current white count on admission is 9.5. The admitting Dopplers by Jimi Ramirez indicate probable occlusive tibial disease with blunting of the waveforms in the forefoot of the right side. The admitting x-rays are reviewed and show again destructive changes at the proxima l interphalangeal joint and the head of the proximal phalanx, consistent with the x-rays taken in the office several weeks ago and confirmed with the 12/24 MRI, confirming osteomyelitis of the digit. IMPRESSION: Cellulitis of the right fifth toe with osteomyelitis of the proximal phalanx, insulin-de pendent diabetes with severe peripheral neuropathy, hypertension, dyslipidemia, and peripheral artery disease bilaterally status post left leg bypass and left foot transmetatarsal amputation by 1 year. PLAN: After much discussion over the last several weeks the patient is admitted to [facility] for specialist workup and evaluation. She has been scheduled for amputation of the fifth digit on right foot on morning. She has been seen by a first year resident for Dr. Day and will b e probably evaluated by her again tomorrow. We are awaiting the results of infectious disease, but t long most recent culture from the office grew out pseudomonas and the patient had been on 2-3 weeks of Cipro orally. Pending medical clearance and stable cardiac and diabetic status tomorrow and hopefull y getting some feedback from Dr. Day, we will anticipate performing a digital amputation of the rig t foot under general anesthesia and then evaluate the healing progress at the [facility]. The patient is counseled as to the risk of any procedure performed in the presence of her distal pedal occlusive disease, but given her continuous pain and the presence of confirmed osteomye litis of the bone we will make this attempt. She understands the risks of infection and additional a mputation and possible loss of limb. She signed the consent form, which was witnessed. No guarantee s were made and we will await the workup of specialists tomorrow and check back with the results of t henrique evaluation. Mayank Watkins DPM cc: [id number] TT: 01/29/2017 05:29:21 Confirmation # [id number] Dictation # [id number] jn
[2017-01-29] MEDS: Insulin Reg-MEDIUM-Coverage SC SCH ×4 (07:46→22:00)
--- NOTE | 2017-01-29 08:23 | PN ---
DATE: 01/29/2017 SUBJECTIVE: The patient has no complaints of any chest pain, no shortness of breath, no headaches or dizziness. She is just concerned about her right toe and says that she would like to have surgery t o have it removed. PHYSICAL EXAMINATION: VITAL SIGNS: Temperature is 97.9, pulse is 64, blood pressure 158/68, respiration is 18. GENERAL: The patient comfortable, in no acute distress. HEENT: Anicteric sclerae. Moist mucosa. NECK: No JVD or adenopathy. CARDIAC: S1/S2. No murmurs. No rubs. Regular. RESPIRATORY: Clear to auscultation bilaterally. No wheezes, rales, or rhonchi. Good air entry. ABDOMEN: Bowel sounds are positive, soft, nontender, and nondistended. EXTREMITIES: No edema. Has 1+ pulses. LABS: Lower extremity arterial ultrasound done shows mild abnormal ABIs at rest with bilateral art erial disease. ASSESSMENT: 1. Right fifth toe osteomyelitis. 2. Diabetes type 2. 3. Peripheral arterial disease. 4. Hypertension. 5. Dyslipidemia. 6. Left leg bypass. PLAN: The patient is going to be seen by Dr. Day from vascular surgery. She had done the procedure on the left leg. She is also going to be seen by Dr. Mayank Ramirez from interventional radiology as w ell as being followed by Dr. Watkins from podiatry. The patient is on Ambien for sleep. She is on los roseann for hypertension. She is going to continue Levemir for diabetes. She is on Lipitor for dyslip idemia. The patient is on vancomycin for antibiotics by Dr. Sy from infectious disease. Will suze it further input from the specialist. I will also get cardiology evaluation as the patient will most likely need preop clearance for her procedure. Jose Mckeon MD cc: [id number] TT: 01/29/2017 08:23:24 Confirmation # [id number] Dictation # [id number] mn
--- NOTE | 2017-01-29 09:35 | CP.PCM.PN ---
Subjective - Date & Time of Evaluation Date of Evaluation: 01/29/17 Time of Evaluation: 09:32 - Subjective Subjective: VASCULAR SURGERY PROGRESS NOTE FOR DR. STEWART 71F seen and examined at bedside. Patient continuous to complain of right 5th toe pain. Denies radiation of pain up the leg, denies pain the left leg. No acute events over night. Objective - Vital Signs/Intake and Output Vital Signs (last 24 hours): Temp Pulse Resp BP Pulse Ox 97.9 F 64 18 158/68 H 96 01/28/17 18:27 01/28/17 19:01 01/28/17 18:27 01/28/17 19:01 01/28/17 16:00 Intake and Output: 01/29/17 01/29/17 06:59 18:59 Intake Total 420 Output Total 200 Balance 220 - Medications Medications: Current Medications Aspirin (Ecotrin) 81 mg PO DAILY [facility] Last Admin: 01/28/17 11:34 Dose: 81 mg Docusate Sodium (Colace) 100 mg PO BID [facility] Last Admin: 01/28/17 18:59 Dose: 100 mg Enoxaparin Sodium (Lovenox) 40 mg SC DAILY [facility] PRN Reason: Protocol Ferrous Sulfate (Feosol) 324 mg PO DAILY [facility] Last Admin: 01/28/17 12:57 Dose: 324 mg Home Med (Home Med) 1 unit PO DAILY [facility] Sodium Chloride (Sodium Chloride 0.9%) 1,000 mls @ 100 mls/hr IV .Q10H [facility] Last Admin: 01/29/17 05:01 Dose: 100 mls/hr Meropenem 1 gm/ Sodium (Chloride) 100 mls @ 100 mls/hr IVPB Q8 [facility] PRN Reason: Protocol Stop: 02/04/17 22:01 Last Admin: 01/29/17 05:01 Dose: 100 mls/hr Vancomycin HCl (Vancomycin 1gm) 250 mls @ 167 mls/hr IVPB Q12H [facility] PRN Reason: Protocol Last Admin: 01/29/17 05:00 Dose: 167 mls/hr Insulin Detemir (Levemir) 10 unit SC Q12H [facility] Last Admin: 01/28/17 22:13 Dose: 10 unit Insulin Human Regular (Humulin R Med) 0 units SC ACHS [facility] PRN Reason: Protocol Last Admin: 04/05/17 07:46 Dose: Not Given Losartan Potassium (Cozaar) 25 mg PO DAILY [facility] Last Admin: 01/28/17 12:53 Dose: 25 mg Metoprolol Tartrate (Lopressor) 25 mg PO BID [facility] Last Admin: 01/28/17 19:01 Dose: 25 mg Morphine Sulfate (Morphine) 2 mg IVP Q4H PRN PRN Reason: Pain, moderate (4-7) Zolpidem Tartrate (Ambien) 5 mg PO HS PRN; Protocol PRN Reason: Insomnia Last Admin: 01/28/17 22:13 Dose: 5 mg - Labs Labs: PT 11.5 Seconds (9.9-11.8) 01/28/17 09:10 INR 1.06 (0.93-1.08) 01/28/17 09:10 APTT 25.1 Seconds (23.7-30.8) 01/28/17 09:10 - Constitutional Appears: Non-toxic, No Acute Distress - Head Exam Head Exam: ATRAUMATIC - Eye Exam Eye Exam: EOMI, PERRL - ENT Exam ENT Exam: Mucous Membranes Moist - Respiratory Exam Respiratory Exam: Clear to Ausculation Bilateral, NORMAL BREATHING PATTERN - Cardiovascular Exam Cardiovascular Exam: REGULAR RHYTHM, +S1, +S2 - GI/Abdominal Exam GI & Abdominal Exam: Soft. absent: Distended, Firm, Guarding, Rigid, Tenderness , Rebound - Extremities Exam Additional comments: right 5th toe cellulitis Palpable femoral pulse, palpable right DP, questionable right PT, left DP/PT - Neurological Exam Neurological Exam: Alert, Awake - Skin Skin Exam: Dry, Intact, Normal Color, Warm Assessment and Plan - Assessment and Plan (Free Text) Assessment: 71F with 5th right toe pain and cellulitis Extremity Ultrasound: LAVON R-0.88, L-0.71 Ankle PVR -blunted but pulsatile b/l Metatarsal PVR -moderately to severely blunted MRI: suspicious for osteomyelitis of right 5th toe Plan: - Patient awaits cardiac evaluation - Patient tentatively on OR for toe amputation by podiatry Discussed with Dr. Shay Gipson, PGY1
[2017-01-29] MEDS: Morphine 2 mg/ml ISec IVP PRN ×2 (09:39→18:52)
[2017-01-29] MEDS: Enoxaparin 40 mg Syringe SC SCH (09:39)
[2017-01-29] MEDS ORDERED: ZOCOR 20 MG PO SCH (10:00)
--- NOTE | 2017-01-29 11:29 | CON ---
DATE: 01/29/2017 REQUESTING PHYSICIAN: Dr. Mckeon. REASON FOR CONSULTATION: Preoperative evaluation. HISTORY OF PRESENT ILLNESS: This is a 71-year-old woman well known to us with a history of diabetes, hyperlipidemia and coronary artery disease who is scheduled for a toe amputation tomorrow. Preopera tive evaluation was requested. She denies any recent chest pain. She has had no significant exertio nal dyspnea. She underwent a left transmetatarsal amputation last year as well as a prior left leg b ypass surgery. She has undergone percutaneous intervention of her right lower extremity as well. Leslie estrada has had a nonhealing wound of her right fifth toe which has been unresponsive to conservative measu res. Amputation is planned for tomorrow. Her past history is notable for the problems mentioned abo ve. She underwent cardiac catheterization in 2005 and was found to have mild coronary disease at robi t time. She has a longstanding history of diabetes and hyperlipidemia. There is also a family histo ry of premature heart disease. CURRENT MEDICATIONS: Include aspirin, simvastatin 40 mg daily, metoprolol 1000 mg b.i.d., insulin, C ozaar 25 mg daily, metoprolol 25 mg b.i.d. and vitamins. ALLERGIES: SHE HAS HAD A REACTION TO PERCOCET IN THE PAST. SOCIAL HISTORY: She does not smoke or drink. FAMILY HISTORY: Father in his 40s from injuries sustained in the war. Mother at the a ge of 80 from heart disease. REVIEW OF SYSTEMS: A 10 point review of systems is otherwise unremarkable. PHYSICAL EXAMINATION: GENERAL: She is an anxious appearing, middle-aged woman. VITAL SIGNS: Her blood pressure is 160/56 with a pulse of 64, respirations are 14. She is currently afebrile. HEENT: Normocephalic, atraumatic. Pupils equally reactive to light and accommodation. NECK: Supple. No JVD noted. CHEST: Clear to auscultation and percussion. HEART: PMI normal position with no pathologic murmur or gallops noted. ABDOMEN: Soft, nontender, normoactive bowel sounds. EXTREMITIES: Left transmetatarsal amputation is noted. Distal pulses are diminished bilaterally, no nhealing ulcer is present on the right fifth toe. SKIN: Warm and dry. DIAGNOSTIC DATA: White count 9.5, hemoglobin and hematocrit 11.3 and 33.7, platelet count 227,000. PT, PTT 11.5 and 25.1, potassium 4.4, BUN and creatinine 24 and 0.7, glucose is 202. Electrocardiogr am reveals sinus rhythm with no significant abnormalities. Chest x-ray is not found in the system. IMPRESSION: 1. Peripheral vascular disease tentatively scheduled for right fifth toe amputation tomorrow. Appea rs stable from a cardiac standpoint to proceed. 2. Known coronary artery disease with no recent active symptoms, appears stable. 3. History of diabetes. 4. Severe peripheral vascular disease. RECOMMENDATIONS: From a cardiac standpoint, no specific precautions appear necessary at the present time, no further preoperative workup is necessary either. Beta maurice therapy should be continued t hroughout her hospital course. Aspirin therapy should be continued as well. If she were to need mor e extensive vascular intervention, a preoperative stress test might be necessary; however, from a car diac standpoint, she appears stable and optimized to proceed with surgery as planned for tomorrow. Thank you for this consultation. I am happy to follow through her hospital course. Jose Quispe MD cc: [id number] TT: 01/29/2017 11:29:10 Confirmation # [id number] Dictation # [id number]
[2017-01-29] MEDS: Insulin Detemir 100 units/ml Vial (Levemir) SC SCH ×2 (11:51→22:00)
--- NOTE | 2017-01-29 14:00 | CON ---
DATE: 01/29/2017 REASON FOR CONSULTATION: Right fifth toe pain, possible osteomyelitis for an amputation. HISTORY OF PRESENT ILLNESS: The patient is a 71-year-old diabetic woman who is well known to me. She has severe peripheral vascular disease. Two years ago, she underwent a left leg popliteal to tibial vessel bypass for gangrene of her foot. Subsequent to that, she has undergone toe amputation as well as a transmetatarsal amputation which has healed. Currently, she is waiting for a prosthesis. During the prior admission, she underwent an angiogram showing peripheral vascular disease on the right side as well as single vessel runoff. PAST MEDICAL HISTORY: Significant for peripheral vascular disease, neuropathy, hypertension and diabetes. PAST SURGICAL HISTORY: Appendectomy, left leg popliteal tibial bypass. SOCIAL HISTORY: She never smoked. ALLERGIES: OXYCODONE. REVIEW OF SYSTEMS: Other than stated in the history of present illness is unremarkable. PHYSICAL EXAMINATION: GENERAL: Showed a slender woman in no distress. HEENT: Negative. LUNGS: Clear. CARDIAC: Showed regular rhythm. ABDOMEN: Soft. EXTREMITIES: Left leg has a healed transmetatarsal amputation. There is palpable femoral and popliteal pulses on both legs and there is no palpable tibial pulse in both legs. The left foot is trace cooler than the right. The right foot is warm to the toes. LABORATORY: She underwent noninvasive vascular study showing an ankle brachial index of 0.8 on the right and 0.7. There are biphasic waveforms all the way to the ankle, but moderate to severely blunted metatarsal waveforms. IMPRESSION AND PLAN: She has moderate peripheral vascular disease in the right leg. Since the amputation site is limited to the fifth toe, amputation can proceed with no further vascular evaluation. Should she fail to heal, a vascular and endovascular procedure will be indicated. Yoly Day MD cc: [id number] TT: 01/29/2017 13:59:37 Confirmation # [id number] Dictation # [id number] jaimie YEUNG
--- NOTE | 2017-01-29 17:59 | CP.PCM.CON ---
History of Present Illness - History of Present Illness History of Present Illness: 71 year old female with PMH of DM, dyslipidemia, left TMA, left lower extremity bypass for peripheral arterial disease, S/P appendectomy came in complaining of worsening discoloration and duskiness of her right 5th toe associated with some discomfort. She had been on Ciprofloxacin for more than a week now without change in her 5th toe. She denies fever or chills, no nausea or vomiting, no chest pain, no headache or dizziness, no abdominal pain, no blurring of vision, no diarrhea, no dysuria. Infectious Diseases consult is requested to further evaluate and manage. She denies animal contacts, no soaking her feet in water, no swimming, no walking barefoot, no trips to the [facility]. Review of Systems - Review of Systems All systems: reviewed and no additional remarkable complaints except (as per HPI ) Past Patient History - Infectious Disease Hx of Infectious Diseases: None - Tetanus Immunizations Tetanus Immunization: Unknown - Past Medical History & Family History Past Medical History?: Yes Past Family History: Reviewed and not pertinent - Past Social History Smoking Status: Former Smoker Alcohol: None Drugs: Denies Home Situation {Lives}: With Family - CARDIAC Hx Cardiac Disorders: Yes Hx Hypertension: Yes - PULMONARY Hx Chronic Obstructive Pulmonary Disease (COPD): No - NEUROLOGICAL Hx Neurological Disorder: Yes (neuropathy ble) Hx Transient Ischemic Attacks (TIA): No - HEENT Hx HEENT Problems: Yes Hx Blind: No Hx Cataracts: Yes (Removed) Hx Deafness: No Hx Difficulty Chewing: No Hx Epistaxis: No Hx Glaucoma: No Hx Macular Degeneration: No - RENAL Hx Renal Failure: No - ENDOCRINE/METABOLIC Hx Diabetes Mellitus Type 2: Yes - HEMATOLOGICAL/ONCOLOGICAL Hx Blood Disorders: No Hx AIDS: No Hx Anemia: No Hx Cancer: No Hx Chemotherapy: No Hx Cirrhosis: No Hx Hepatitis A: No Hx Hepatitis B: No Hx Hepatitis C: No Hx Metastesis: No Hx Shingles: No Hx Unexplained Bleeding: No - INTEGUMENTARY Hx Dermatological Problems: No Hx Basil Cell: No Hx Eczema: No Hx Melanoma: No Hx Psoriasis: No Hx Squamous Cell: No - MUSCULOSKELETAL/RHEUMATOLOGICAL Hx Musculoskeletal Disorders: No Hx Falls: No - GASTROINTESTINAL Hx Gastrointestinal Disorders: No Hx Colostomy: No Hx Crohn's Disease: No Hx Diverticulitis: No Hx Gall Bladder Disease: No Hx Gastroesophageal Reflux: No Hx Ileostomy: No Hx Liver Failure: No Hx Pancreatitis: No HX Swallowing Problems: No Other/Comment: chronic constipation - GENITOURINARY/GYNECOLOGICAL Hx Genitourinary Disorders: No Hx Hematuria: No Hx Incontinence: No Hx Sexually Transmitted Disorders: No Hx Urinary Tract Infection: Yes Other/Comment: tubal - PSYCHIATRIC Hx Emotional Abuse: No Hx Physical Abuse: No Hx Substance Use: No - SURGICAL HISTORY Hx Amputation: Yes (Partial Left foot) Hx Appendectomy: Yes - ANESTHESIA Hx Anesthesia: Yes Hx Anesthesia Reactions: No Hx Malignant Hyperthermia: No Meds Allergies/Adverse Reactions: Allergies Allergy/AdvReac Type Severity Reaction Status Date / Time aspartame Allergy Mild HEADACHE Verified 01/28/17 08:29 oxycodone Allergy Mild HEADACHE Verified 01/28/17 08:29 acetaminophen [From Percocet] Allergy SHORTNESS Verified 01/28/17 08:29 OF BREATH atorvastatin calcium Allergy Pt gets Verified 01/29/17 08:34 [From Lipitor] 'hyper' oxycodone HCl [From Percocet] Allergy SHORTNESS Verified 01/28/17 08:29 OF BREATH Equal Allergy HEADACHE Uncoded 01/28/17 08:29 - Medications Medications: Current Medications Aspirin (Ecotrin) 81 mg PO DAILY [facility] Last Admin: 01/28/17 11:34 Dose: 81 mg Atorvastatin Calcium (Lipitor) 10 mg PO [facility] Docusate Sodium (Colace) 100 mg PO BID [facility] Last Admin: 01/28/17 11:34 Dose: 100 mg Ferrous Sulfate (Feosol) 324 mg PO DAILY [facility] Last Admin: 01/28/17 12:57 Dose: 324 mg Sodium Chloride (Sodium Chloride 0.9%) 1,000 mls @ 100 mls/hr IV .Q10H [facility] Last Admin: 01/28/17 09:48 Dose: 100 mls/hr Insulin Detemir (Levemir) 10 unit SC Q12H [facility] Insulin Human Regular (Humulin R Med) 0 units SC ACHS [facility] PRN Reason: Protocol Last Admin: 01/28/17 12:57 Dose: Not Given Losartan Potassium (Cozaar) 25 mg PO DAILY [facility] Last Admin: 01/28/17 12:53 Dose: 25 mg Metoprolol Tartrate (Lopressor) 25 mg PO BID [facility] Last Admin: 01/28/17 11:34 Dose: 25 mg Physical Exam - Constitutional Appears: Non-toxic, No Acute Distress - Head Exam Head Exam: NORMAL INSPECTION - ENT Exam ENT Exam: Mucous Membranes Moist - Neck Exam Neck exam: Negative for: Lymphadenopathy, Meningismus - Respiratory Exam Respiratory Exam: Decreased Breath Sounds - Cardiovascular Exam Cardiovascular Exam: +S1, +S2 - GI/Abdominal Exam GI & Abdominal Exam: Soft. absent: Tenderness Results - Vital Signs Recent Vital Signs: Last Vital Signs Temp 97.9 F 01/28/17 08:18 Pulse 64 01/28/17 13:00 Resp 18 01/28/17 13:00 BP 155/81 H 01/28/17 13:00 Pulse Ox 98 01/28/17 13:00 - Labs Result Diagrams: 01/28/17 09:10 01/28/17 09:10 Assessment & Plan - Assessment and Plan (Free Text) Plan: Assessment Right 5th toe osteomyelitis in a patient with probable peripheral vascular disease DM dyslipidemia S/P left TMA left lower extremity bypass for peripheral arterial disease S/P appendectomy Plan Started patient on Vancomycin and Merrem pending blood cx; follow up plan of Surgery for the foot as well as Vascular surgery Will follow clinically
[2017-01-30] MEDS: Sodium Chloride 0.9% 1,000 ML IV SCH (04:30)
[2017-01-30] MEDS: Meropenem 1 GM in Sodium Chloride 0.9% 100 ML IVPB SCH ×3 (05:08→21:34)
[2017-01-30] MEDS: Vancomycin 1gm in NS 250ml 250 ML IVPB SCH ×2 (05:11→17:21)
[2017-01-30] MEDS ORDERED: Bupivacaine 0.5% Inj(30mL) ONE (07:15)
[2017-01-30] MEDS ORDERED: Bacitracin Ointment 30 GM TUBE ONE (07:15)
[2017-01-30] MEDS ORDERED: Midazolam 2 MG/2 ML VIAL ONE (07:41)
[2017-01-30] MEDS ORDERED: Propofol 10 mg/ml Inj (20 ML) ONE (07:41)
[2017-01-30] MEDS ORDERED: Lidocaine 1% Inj (20ml) ONE (07:42)
--- NOTE | 2017-01-30 08:14 | PN ---
DATE: 01/30/2017 SUBJECTIVE: The patient has no complaints of any chest pain, no shortness of breath, no headaches, n o dizziness. PHYSICAL EXAMINATION: VITAL SIGNS: Temperature is 98.9, pulse is 62, blood pressure is 140/46, respirations 20. GENERAL: The patient comfortable, in no acute distress. HEENT: Anicteric sclerae. Moist mucosa. NECK: No JVD or adenopathy. CARDIAC: S1/S2. No murmurs. No rubs. Regular. RESPIRATORY: Clear to auscultation bilaterally. No wheezes, rales, or rhonchi. Good air entry. ABDOMEN: Bowel sounds are positive, soft, nontender, and nondistended. EXTREMITIES: No edema. Has 1+ pulses. LABORATORIES: Creatinine 0.7. ASSESSMENT: 1. Right fifth toe osteomyelitis. 2. Diabetes type 2. 3. Peripheral arterial disease. 4. Hypertension. 5. Dyslipidemia. 6. Left leg bypass. PLAN: The patient is currently comfortable, is on Ambien for sleep, is on Colace. The patient is go ing to continue on losartan for hypertension, is on Levemir for diabetes, is on Lovenox for DVT proph ylaxis. It is placed on hold because patient is going to the OR today. She is going to continue wit h meropenem for antibiotics. She is on IV fluids. I will discontinue her IV fluids. Appreciate inp ut from Dr. Watkins, Dr. Sy and Dr. Day and Dr. Paige. Dr. Quispe has seen the patient for preo p clearance. Jose Mckeon MD cc: [id number] TT: 01/30/2017 08:13:21 Confirmation # [id number] Dictation # [id number]
--- NOTE | 2017-01-30 08:59 | PCM.SURG1 ---
Surgeon's Initial Post Op Note - Surgeon's Notes Surgeon: Dr. Mayank Watkins DPM [place] Encaser: Dr. Chavez Lara Type of Anesthesia: General IV, Local Anesthesia Administered By: Dr. Dhaliwal Pre-Operative Diagnosis: Rgith foot ischemic change to 5th digit, non-healing ulcer to plantar right 5th digit Operative Findings: materials: 2-0 Prolene, Allevyn dressing, DSD Post-Operative Diagnosis: same Operation Performed: Right foot 5th digit amputation Specimen/Specimens Removed: Pathology bone and soft tissue Estimated Blood Loss: EBL {In ML}: 3 Blood Products Given: N/A Drains Used: No Drains Post-Op Condition: Good Date of Surgery/Procedure: 01/30/17 Time of Surgery/Procedure: 07:35
[2017-01-30] MEDS ORDERED: Lactated Ringer's 1,000 ML IV SCH (09:00)
[2017-01-30] MEDS ORDERED: Nitroglycerin 2% Ointment Foilpak UD TOP ONE (09:00)
--- NOTE | 2017-01-30 09:33 | RAD ---
PROCEDURE: Right foot HISTORY: right foot surgery COMPARISON: None. FINDINGS: BONES: Status post amputation 5th digit at 5th metatarsal phalangeal articulation. No acute fracture. No bony destructive lesion is seen. JOINTS: The metacarpals and digits are well aligned. SOFT TISSUE: Vascular calcifications No foreign body is seen. OTHER FINDINGS: None. IMPRESSION: Amputation 5th digit at metatarsal phalangeal articulation.
[2017-01-30] MEDS ORDERED: HYDROmorphone 0.5 mg/0.5 ml ISec IVP ONE (09:40)
[2017-01-30] MEDS ORDERED: HYDROmorphone 0.5 mg/0.5 ml ISec ONE (09:40)
[2017-01-30] MEDS ORDERED: HYDROmorphone 0.5 mg/0.5 ml ISec IVP STA (10:09)
--- NOTE | 2017-01-30 11:13 | PN ---
DATE: 01/30/2017 TIME OF CONSULTATION: 0645 hrs. LOCATION OF CONSULTATION: In the preop holding area of the [facility]. The patient is a 71-year-old female of longstanding with me who was admitted several days ago with ce llulitis and diabetic ulcer of the right fifth toe. She has advanced peripheral artery disease, byron re disabling diabetic hypersensitive neuropathy, and history of previous amputation of the left foot in addition to CAD and HTN. She continues this morning to complain to me about the severe pain in the right forefoot, and specifi natalie, in the right fifth toe even with no dressings on and just the hospital sock. She is in pain w ith sheet when it is on the toe. OBJECTIVE FINDINGS: VITAL SIGNS: Stable. GENERAL: She is alert and oriented x 3 and in no acute distress. She is in pain on the right foot. EXTREMITIES: Her pedal pulses are very weak, almost not obtainable with palpation. The foot has pal danyelle. The right fifth toe has some evidence of erythema and weeping on the medial aspect of the proxi mal interphalangeal joint. The ulceration on the lateral aspect of the same joint has an eschar over riding the wound, and there is no calf tenderness. The digit is very tender with manipulation and pa lpation. The x-rays obtained on admission confirmed the x-rays taken in the office over 3-4 weeks ago, and the ones done at the hospital back in October/November with destructive changes at the level of the prox imal interphalangeal joint and the proximal phalanx on the right fifth toe. A November MRI confirmed osteomyelitis of the proximal phalanx and the middle phalanx on the right fi fth toe. Recent Doppler studies indicate moderate PAD in the right lower extremity that, on previous catheteri zation, has only a single-vessel runoff to the foot. The PVR studies indicate reduction in the wavef orms at the metatarsal level and distal of the right foot. ASSESSMENT: Insulin-dependent diabetes with severe peripheral arterial disease with severe painful n europathy, hypertension, dyslipidemia, osteomyelitis of the right fifth proximal phalanx, and diabeti c ulcer of the right fifth toe. PLAN: The patient and the daughter are both together consulted as to the anticipated procedure. The only alternative to avoid toe amputation would be an attempt, which we have been doing for 2 weeks now, of sterilizing the osteomyelitis with chcf antibiotic therapy. This may have side effects a nd problems with the patient's other medical comorbidities, and worse, the osteomyelitis may then spr ead to adjacent toes or proximally to the metatarsal, making a larger problem. Also, her current vascular status is poor, but there is plenty of opportunity for the vascular status to worsen over time, and this may be a period where we have a window to remove the toe and expect a reasonable chance of healing. The opinions of the patient and her daughter are considered, and we mu tually agree to go forward with the toe amputation and have the surgery this morning. The patient is just tired of the last 3 months of continuous daily pain and frequent visits to my office where ther e is no resolution to the pain, and she does have AN ALLERGY TO OXYCODONE AND PERCOCET, which limits our ability to use medication for pain control. So a decision is made to proceed with the anticipated toe amputation of the fifth toe on the right fo ot under general anesthesia later this morning, and the consent form had been prepared and signed by the patient and witnessed. The patient and the daughter both understand the level of vascular diseas e and the risks that the wound may not heal or other parts of the foot worsen requiring a more proxim al amputation and possible vascular intervention. Mayank Watkins DPM cc: [id number] TT: 01/30/2017 11:12:57 Confirmation # [id number] Dictation # [id number]
[2017-01-30] MEDS: Insulin Reg-MEDIUM-Coverage SC SCH ×4 (12:06→22:12)
[2017-01-30] MEDS: Insulin Detemir 100 units/ml Vial (Levemir) SC SCH ×2 (12:07→23:33)
[2017-01-30] MEDS: Morphine 2 mg/ml ISec IVP PRN (12:08)
[2017-01-30 13:12] LABS: HEMATOCRIT 32.8 % (36.0-48.0); MEAN CELL VOLUME 83.2 fL (80.0-105.0); MEAN CORPUSCULAR HEMOGLOBIN 27.9 pg (25.0-35.0); MEAN CORPUSCULAR HGB CONC 33.5 g/dl (31.0-37.0); RED CELL DISTRIBUTION WIDTH 12.8 % (11.5-14.5); WHITE BLOOD COUNT 7.4 10^3/ul (4.5-11.0)
[2017-01-30 13:26] LABS: ALKALINE PHOSPHATASE 49 U/L (38-133); ALT/SGPT 24 U/L (7-56); AST/SGOT 20 U/L (15-39); BILIRUBIN,TOTAL 0.6 mg/dL (0.2-1.3); BLOOD UREA NITROGEN 10 mg/dL (7-21); CARBON DIOXIDE 29 mmol/L (21-33); CHLORIDE 103 mmol/L (98-107); GFR AFRICAN-AMERICAN > 60; GLUCOSE,RANDOM 150 mg/dL (70-110); POTASSIUM 4.4 mmol/L (3.6-5.0); SODIUM 138 mmol/L (132-148); TOTAL PROTEIN 6.7 g/dL (5.8-8.3)
[2017-01-30] MEDS: ZOCOR 20 MG PO SCH (17:20)
[2017-01-30] MEDS ORDERED: HYDROmorphone 1 mg/ml ISec IVP SCH (18:00)
--- NOTE | 2017-01-30 19:49 | CP.PCM.PN ---
Subjective - Date & Time of Evaluation Date of Evaluation: 01/30/17 Time of Evaluation: 09:30 - Subjective Subjective: Comfortable in bed, less pain in the foot, no fevers overnight. Objective - Vital Signs/Intake and Output Vital Signs (last 24 hours): Temp Pulse Resp BP Pulse Ox 98.4 F 64 16 148/63 99 01/30/17 10:30 01/30/17 17:20 01/30/17 10:30 01/30/17 17:20 01/30/17 10:30 Intake and Output: 01/30/17 01/31/17 18:59 06:59 Intake Total 1300 Output Total 0 Balance 1300 - Medications Medications: Current Medications Aspirin (Ecotrin) 81 mg PO DAILY [facility] Last Admin: 01/30/17 12:06 Dose: Not Given Docusate Sodium (Colace) 100 mg PO BID [facility] Last Admin: 01/30/17 17:19 Dose: 100 mg Enoxaparin Sodium (Lovenox) 40 mg SC DAILY [facility] PRN Reason: Protocol Last Admin: 01/29/17 09:39 Dose: 40 mg Ferrous Sulfate (Feosol) 324 mg PO DAILY [facility] Last Admin: 01/30/17 12:06 Dose: Not Given Home Med (Home Med) 1 unit PO DAILY [facility] Last Admin: 01/30/17 17:20 Dose: 1 unit Hydromorphone HCl (Dilaudid) 1 mg IVP Q6H PRN PRN Reason: Pain, moderate (4-7) Meropenem 1 gm/ Sodium (Chloride) 100 mls @ 100 mls/hr IVPB Q8 [facility] PRN Reason: Protocol Stop: 02/04/17 22:01 Last Admin: 01/30/17 14:23 Dose: 100 mls/hr Vancomycin HCl (Vancomycin 1gm) 250 mls @ 167 mls/hr IVPB Q12H [facility] PRN Reason: Protocol Last Admin: 01/30/17 17:21 Dose: 167 mls/hr Insulin Detemir (Levemir) 10 unit SC Q12H [facility] Last Admin: 01/30/17 12:07 Dose: Not Given Insulin Human Regular (Humulin R Med) 0 units SC ACHS [facility] PRN Reason: Protocol Last Admin: 01/30/17 17:17 Dose: 5 units Losartan Potassium (Cozaar) 25 mg PO DAILY [facility] Last Admin: 01/30/17 12:06 Dose: Not Given Metoprolol Tartrate (Lopressor) 25 mg PO BID [facility] Last Admin: 01/30/17 17:20 Dose: 25 mg Morphine Sulfate (Morphine) 4 mg IVP Q4H PRN PRN Reason: Pain, severe (8-10) Zolpidem Tartrate (Ambien) 5 mg PO HS PRN; Protocol PRN Reason: Insomnia Last Admin: 01/29/17 22:08 Dose: 5 mg - Labs Labs: 01/30/17 13:00 01/30/17 13:00 PT 11.5 Seconds (9.9-11.8) 01/28/17 09:10 INR 1.06 (0.93-1.08) 01/28/17 09:10 APTT 25.1 Seconds (23.7-30.8) 01/28/17 09:10 - Constitutional Appears: Non-toxic, No Acute Distress - Head Exam Head Exam: NORMAL INSPECTION - ENT Exam ENT Exam: Mucous Membranes Moist - Neck Exam Neck Exam: absent: Lymphadenopathy, Meningismus - Respiratory Exam Respiratory Exam: Decreased Breath Sounds - Cardiovascular Exam Cardiovascular Exam: +S1, +S2 - GI/Abdominal Exam GI & Abdominal Exam: Soft. absent: Tenderness - Extremities Exam Additional comments: right foot with dry dressings in place Assessment and Plan - Assessment and Plan (Free Text) Plan: Assessment Right 5th toe osteomyelitis in a patient with probable peripheral vascular disease S/P surgery POD #1 DM dyslipidemia S/P left TMA left lower extremity bypass for peripheral arterial disease S/P appendectomy Plan continue Vancomycin and Merrem day 2 pending OR cultures and pathology Will follow clinically
[2017-01-30] MEDS: HYDROmorphone 1 mg/ml ISec IVP PRN (22:06)
[2017-01-31] MEDS: Meropenem 1 GM in Sodium Chloride 0.9% 100 ML IVPB SCH ×3 (05:10→22:35)
[2017-01-31] MEDS: Vancomycin 1gm in NS 250ml 250 ML IVPB SCH ×2 (05:10→17:21)
[2017-01-31] MEDS: HYDROmorphone 1 mg/ml ISec IVP PRN ×4 (06:27→20:02)
[2017-01-31] MEDS: Insulin Reg-MEDIUM-Coverage SC SCH ×4 (08:30→22:00)
--- NOTE | 2017-01-31 09:07 | PN ---
DATE: 01/31/2017 SUBJECTIVE: The patient has no complaints of any chest pain, no shortness of breath, no headaches. She says the pain medication does help her. PHYSICAL EXAMINATION: VITAL SIGNS: Temperature is 98.1, pulse 60, blood pressure 150/50, respirations 20. GENERAL: The patient comfortable, in no acute distress. HEENT: Anicteric sclerae. Moist mucosa. NECK: No JVD or adenopathy. CARDIAC: S1/S2. No murmurs. No rubs. Regular. RESPIRATORY: Clear to auscultation bilaterally. No wheezes, rales, or rhonchi. Good air entry. ABDOMEN: Bowel sounds are positive, soft, nontender, and nondistended. EXTREMITIES: No edema. Has 1+ pulses. LABS: White count of 7.4, hemoglobin 11, creatinine 0.6. ASSESSMENT: 1. Right fifth toe osteomyelitis, status post amputation. 2. Left transmetatarsal amputation. 3. Peripheral arterial disease with left leg bypass. 4. Dyslipidemia. 5. Diabetes type 2. 6. Hypertension. PLAN: The patient is currently comfortable. She is going to continue on Ambien for sleep. She is o n Colace for her constipation. She is receiving aspirin for her peripheral arterial disease. She is on Lovenox for DVT prophylaxis; she is going to continue it. She is on a heart healthy diet. Will order blood work for tomorrow. Jose Mckeon MD cc: [id number] TT: 01/31/2017 09:06:48 Confirmation # [id number] Dictation # [id number] mn
[2017-01-31] MEDS: ZOCOR 20 MG PO SCH (09:17)
[2017-01-31] MEDS: Enoxaparin 40 mg Syringe SC SCH (09:18)
[2017-01-31] MEDS: Insulin Detemir 100 units/ml Vial (Levemir) SC SCH ×2 (12:13→22:34)
--- NOTE | 2017-01-31 17:52 | CP.PCM.PN ---
Subjective - Date & Time of Evaluation Date of Evaluation: 01/31/17 Time of Evaluation: 11:10 - Subjective Subjective: 71 year old female patient with PMHx of DM, HLD, 1 day s/p Right foot 5th digit amputation was seen at bedside this morning. Patient was resting comfortably in bed with no acute overnight distress. Patient states that she feels moderate pain to the surgical site. Dressing to Right foot remains clean, dry and intact. Patient denies of any N/V/F/C or SOB today Objective - Vital Signs/Intake and Output Vital Signs (last 24 hours): Temp Pulse Resp BP Pulse Ox 98.2 F 60 20 167/70 H 98 01/31/17 06:00 01/31/17 17:19 01/31/17 06:00 01/31/17 17:19 01/31/17 06:00 Intake and Output: 01/31/17 01/31/17 06:59 18:59 Intake Total 300 450 Output Total 200 Balance 100 450 - Medications Medications: Current Medications Aspirin (Ecotrin) 81 mg PO DAILY [facility] Last Admin: 01/31/17 09:17 Dose: 81 mg Docusate Sodium (Colace) 100 mg PO BID [facility] Last Admin: 01/31/17 17:17 Dose: 100 mg Enoxaparin Sodium (Lovenox) 40 mg SC DAILY [facility] PRN Reason: Protocol Last Admin: 01/31/17 09:18 Dose: 40 mg Ferrous Sulfate (Feosol) 324 mg PO DAILY [facility] Last Admin: 01/31/17 09:17 Dose: 324 mg Home Med (Home Med) 1 unit PO DAILY [facility] Last Admin: 01/31/17 09:17 Dose: 1 unit Hydromorphone HCl (Dilaudid) 1 mg IVP Q4H PRN PRN Reason: Pain, moderate (4-7) Last Admin: 01/31/17 15:09 Dose: 1 mg Meropenem 1 gm/ Sodium (Chloride) 100 mls @ 100 mls/hr IVPB Q8 [facility] PRN Reason: Protocol Stop: 02/04/17 22:01 Last Admin: 01/31/17 13:41 Dose: 100 mls/hr Vancomycin HCl (Vancomycin 1gm) 250 mls @ 167 mls/hr IVPB Q12H [facility] PRN Reason: Protocol Last Admin: 04/07/17 17:21 Dose: 167 mls/hr Insulin Detemir (Levemir) 10 unit SC Q12H [facility] Last Admin: 01/31/17 12:13 Dose: 10 unit Insulin Human Regular (Humulin R Med) 0 units SC ACHS [facility] PRN Reason: Protocol Last Admin: 01/31/17 17:18 Dose: 1 units Losartan Potassium (Cozaar) 25 mg PO DAILY [facility] Last Admin: 01/31/17 09:16 Dose: 25 mg Metoprolol Tartrate (Lopressor) 25 mg PO BID [facility] Last Admin: 01/31/17 17:19 Dose: 25 mg Morphine Sulfate (Morphine) 4 mg IVP Q4H PRN PRN Reason: Pain, severe (8-10) Zolpidem Tartrate (Ambien) 5 mg PO HS PRN; Protocol PRN Reason: Insomnia Last Admin: 01/30/17 22:06 Dose: 5 mg - Labs Labs: 01/30/17 13:00 01/30/17 13:00 PT 11.5 Seconds (9.9-11.8) 01/28/17 09:10 INR 1.06 (0.93-1.08) 01/28/17 09:10 APTT 25.1 Seconds (23.7-30.8) 01/28/17 09:10 - Constitutional Appears: Well, Non-toxic, No Acute Distress - Extremities Exam Additional comments: Right lower extremity exam DERM: Incision site well coapted with all sutures intact. No dehiscence is noted. No maceration is noted to the incision site. No drainage is noted. No pus noted. No mal-odor noted. No signs consistent with infection is noted. VASC: Palpable DP noted bilaterally 1/4. Non-palpable PT noted bilaterally. TECHNICAL SPEC less than 3 seconds noted to all digits. NEURO: Gross sensation intact - Neurological Exam Neurological Exam: Alert, Awake, Oriented x3 - Psychiatric Exam Psychiatric exam: Normal Affect, Normal Mood - Skin Skin Exam: Normal Color, Warm Assessment and Plan - Assessment and Plan (Free Text) Assessment: 71 year old female patient present 1 day s/p Right 5th digit amputation Plan: Patient was seen, evaluated, treated at bedside this AM labs and vitals reviewed discussed in detail with Dr. Watkins New dressings applied to right foot; Allevyn foam, DSD Pain medication as per Medicine Podiatry will continue to follow in-house
--- NOTE | 2017-02-01 00:01 | CP.PCM.PN ---
Subjective - Date & Time of Evaluation Date of Evaluation: 01/31/17 Time of Evaluation: 23:59 - Subjective Subjective: Comfortable, not in distress, no fevers, less pain in the foot. Objective - Vital Signs/Intake and Output Vital Signs (last 24 hours): Temp Pulse Resp BP Pulse Ox 98 F 60 20 167/70 H 97 01/31/17 16:30 01/31/17 17:19 01/31/17 16:30 01/31/17 17:19 01/31/17 16:30 Intake and Output: 01/31/17 02/01/17 18:59 06:59 Intake Total 450 360 Output Total 275 Balance 450 85 - Medications Medications: Current Medications Aspirin (Ecotrin) 81 mg PO DAILY [facility] Last Admin: 01/31/17 09:17 Dose: 81 mg Docusate Sodium (Colace) 100 mg PO BID [facility] Last Admin: 01/31/17 17:17 Dose: 100 mg Enoxaparin Sodium (Lovenox) 40 mg SC DAILY [facility] PRN Reason: Protocol Last Admin: 01/31/17 09:18 Dose: 40 mg Ferrous Sulfate (Feosol) 324 mg PO DAILY [facility] Last Admin: 01/31/17 09:17 Dose: 324 mg Home Med (Home Med) 1 unit PO DAILY [facility] Last Admin: 01/31/17 09:17 Dose: 1 unit Hydromorphone HCl (Dilaudid) 1 mg IVP Q4H PRN PRN Reason: Pain, moderate (4-7) Last Admin: 01/31/17 20:02 Dose: 1 mg Meropenem 1 gm/ Sodium (Chloride) 100 mls @ 100 mls/hr IVPB Q8 [facility] PRN Reason: Protocol Stop: 02/04/17 22:01 Last Admin: 01/31/17 22:35 Dose: 100 mls/hr Vancomycin HCl (Vancomycin 1gm) 250 mls @ 167 mls/hr IVPB Q12H [facility] PRN Reason: Protocol Last Admin: 01/31/17 17:21 Dose: 167 mls/hr Insulin Detemir (Levemir) 10 unit SC Q12H [facility] Last Admin: 01/31/17 22:34 Dose: 10 unit Insulin Human Regular (Humulin R Med) 0 units SC ACHS [facility] PRN Reason: Protocol Last Admin: 01/31/17 17:18 Dose: 1 units Losartan Potassium (Cozaar) 25 mg PO DAILY [facility] Last Admin: 01/31/17 09:16 Dose: 25 mg Metoprolol Tartrate (Lopressor) 25 mg PO BID [facility] Last Admin: 01/31/17 17:19 Dose: 25 mg Morphine Sulfate (Morphine) 4 mg IVP Q4H PRN PRN Reason: Pain, severe (8-10) Zolpidem Tartrate (Ambien) 5 mg PO HS PRN; Protocol PRN Reason: Insomnia Last Admin: 01/31/17 22:33 Dose: 5 mg - Labs Labs: 01/30/17 13:00 01/30/17 13:00 PT 11.5 Seconds (9.9-11.8) 01/28/17 09:10 INR 1.06 (0.93-1.08) 01/28/17 09:10 APTT 25.1 Seconds (23.7-30.8) 01/28/17 09:10 - Constitutional Appears: Non-toxic, No Acute Distress - Head Exam Head Exam: NORMAL INSPECTION - ENT Exam ENT Exam: Mucous Membranes Moist - Neck Exam Neck Exam: absent: Lymphadenopathy, Meningismus - Respiratory Exam Respiratory Exam: Decreased Breath Sounds - Cardiovascular Exam Cardiovascular Exam: +S1, +S2 - GI/Abdominal Exam GI & Abdominal Exam: Soft. absent: Tenderness Assessment and Plan - Assessment and Plan (Free Text) Plan: Assessment Right 5th toe osteomyelitis in a patient with probable peripheral vascular disease S/P surgery POD #2 DM dyslipidemia S/P left TMA left lower extremity bypass for peripheral arterial disease S/P appendectomy Plan continue Vancomycin and Merrem day 3 pending OR cultures and pathology Will follow clinically
[2017-02-01] MEDS: Meropenem 1 GM in Sodium Chloride 0.9% 100 ML IVPB SCH (06:28)
[2017-02-01] MEDS: Vancomycin 1gm in NS 250ml 250 ML IVPB SCH ×2 (06:30→18:25)
[2017-02-01] MEDS: HYDROmorphone 1 mg/ml ISec IVP PRN ×2 (07:41→11:25)
[2017-02-01] MEDS: Insulin Reg-MEDIUM-Coverage SC SCH ×4 (07:43→21:58)
[2017-02-01 08:41] LABS: ALKALINE PHOSPHATASE 52 U/L (38-133); ALT/SGPT 28 U/L (7-56); AST/SGOT 21 U/L (15-39); BILIRUBIN,TOTAL 0.7 mg/dL (0.2-1.3); BLOOD UREA NITROGEN 16 mg/dL (7-21); CALCIUM 9.1 mg/dL (8.4-10.5); CARBON DIOXIDE 30 mmol/L (21-33); CHLORIDE 103 mmol/L (98-107); GFR AFRICAN-AMERICAN > 60; GLUCOSE,RANDOM 188 mg/dL (70-110); POTASSIUM 4.5 mmol/L (3.6-5.0); SODIUM 139 mmol/L (132-148); TOTAL PROTEIN 6.9 g/dL (5.8-8.3)
--- NOTE | 2017-02-01 08:44 | CP.PCM.PN ---
Subjective - Date & Time of Evaluation Date of Evaluation: 02/01/17 Time of Evaluation: 08:42 - Subjective Subjective: Patient seen and evaluated at bedside this morning, patient AAOx3 and pleasant. She denies n/v/f/c/sob, states that her surgical site pain is well controlled with current pain medicine. She has bandage clean dry and intact to the right foot, 2 days s/p right 5th digit amputation. Objective - Vital Signs/Intake and Output Vital Signs (last 24 hours): Temp Pulse Resp BP Pulse Ox 98 F 60 20 167/70 H 97 01/31/17 16:30 01/31/17 17:19 01/31/17 16:30 01/31/17 17:19 01/31/17 16:30 Intake and Output: 02/01/17 02/01/17 06:59 18:59 Intake Total 360 Output Total 375 Balance -15 - Medications Medications: Current Medications Aspirin (Ecotrin) 81 mg PO DAILY [facility] Last Admin: 01/31/17 09:17 Dose: 81 mg Docusate Sodium (Colace) 100 mg PO BID [facility] Last Admin: 01/31/17 17:17 Dose: 100 mg Enoxaparin Sodium (Lovenox) 40 mg SC DAILY [facility] PRN Reason: Protocol Last Admin: 01/31/17 09:18 Dose: 40 mg Ferrous Sulfate (Feosol) 324 mg PO DAILY [facility] Last Admin: 01/31/17 09:17 Dose: 324 mg Home Med (Home Med) 1 unit PO DAILY [facility] Last Admin: 01/31/17 09:17 Dose: 1 unit Hydromorphone HCl (Dilaudid) 1 mg IVP Q4H PRN PRN Reason: Pain, moderate (4-7) Last Admin: 02/01/17 07:41 Dose: 1 mg Vancomycin HCl (Vancomycin 1gm) 250 mls @ 167 mls/hr IVPB Q12H [facility] PRN Reason: Protocol Last Admin: 02/01/17 06:30 Dose: 167 mls/hr Meropenem 1g/NS 100mL IVPB (Meropenem 1g/Ns 100ml Ivpb) 100 mls @ 100 mls/hr IVPB Q8 [facility] PRN Reason: Protocol Stop: 02/04/17 22:01 Insulin Detemir (Levemir) 10 unit SC Q12H [facility] Last Admin: 01/31/17 22:34 Dose: 10 unit Insulin Human Regular (Humulin R Med) 0 units SC ACHS [facility] PRN Reason: Protocol Last Admin: 02/01/17 07:43 Dose: Not Given Losartan Potassium (Cozaar) 25 mg PO DAILY [facility] Last Admin: 01/31/17 09:16 Dose: 25 mg Metoprolol Tartrate (Lopressor) 25 mg PO BID [facility] Last Admin: 01/31/17 17:19 Dose: 25 mg Morphine Sulfate (Morphine) 4 mg IVP Q4H PRN PRN Reason: Pain, severe (8-10) Zolpidem Tartrate (Ambien) 5 mg PO HS PRN; Protocol PRN Reason: Insomnia Last Admin: 01/31/17 22:33 Dose: 5 mg - Labs Labs: 01/30/17 13:00 01/30/17 13:00 PT 11.5 Seconds (9.9-11.8) 01/28/17 09:10 INR 1.06 (0.93-1.08) 01/28/17 09:10 APTT 25.1 Seconds (23.7-30.8) 01/28/17 09:10 - Constitutional Appears: Well, Non-toxic, No Acute Distress - Neurological Exam Neurological Exam: Oriented x3 - Psychiatric Exam Psychiatric exam: Normal Affect, Normal Mood - Additional Findings Additional findings: DERMATOLOGIC: Right foot- surgical site at fifth digit amputation is well approximated, skin edges intact, nylon sutures in place. There is no erythema, no drainage, no purulence. Surrounding skin is intact, no open lesions present. VASCULAR: DP pulses 1/4 bilaterally, PT pulse is non palpable, Skin temperature is normal , there is no edema present at the surgical site. NEUROLOGIC: Protective sensation decreased ORTHOPEDIC: Mild pain on palpation to the right foot surgical site. There is 5th digit amputation on the right, TMA on the left. Assessment and Plan - Assessment and Plan (Free Text) Assessment: 71 year old female POD#2 for right foot 5th digit amputation. Plan: Patient seen and evaluated, d/w attending Dr. Watkins Patients right foot dressing changed with DSD, allevyn and kerlix Patient to continue partial weight bearing in a surgical shoe to the Right foot Continue elevation of RLE Podiatry will continue to follow
[2017-02-01] MEDS: Enoxaparin 40 mg Syringe SC SCH (10:16)
[2017-02-01] MEDS: ZOCOR 20 MG PO SCH (10:16)
[2017-02-01] MEDS: Insulin Detemir 100 units/ml Vial (Levemir) SC SCH ×2 (10:19→22:00)
[2017-02-01] MEDS: Meropenem 1g/NS 100mL IVPB 100 ML IVPB SCH ×2 (13:30→21:57)
--- NOTE | 2017-02-01 15:12 | CP.PCM.PN ---
Subjective - Date & Time of Evaluation Date of Evaluation: 02/01/17 Time of Evaluation: 14:20 - Subjective Subjective: Comfortable in bed, not in distress, no fevers overnight. Objective - Vital Signs/Intake and Output Vital Signs (last 24 hours): Temp Pulse Resp BP Pulse Ox 98.5 F 63 19 155/51 H 97 02/01/17 11:05 02/01/17 11:05 02/01/17 11:05 02/01/17 11:05 02/01/17 11:05 Intake and Output: 02/01/17 02/01/17 06:59 18:59 Intake Total 360 Output Total 375 Balance -15 - Medications Medications: Current Medications Aspirin (Ecotrin) 81 mg PO DAILY [facility] Last Admin: 02/01/17 10:15 Dose: 81 mg Docusate Sodium (Colace) 100 mg PO BID [facility] Last Admin: 02/01/17 10:15 Dose: 100 mg Enoxaparin Sodium (Lovenox) 40 mg SC DAILY [facility] PRN Reason: Protocol Last Admin: 02/01/17 10:16 Dose: 40 mg Ferrous Sulfate (Feosol) 324 mg PO DAILY [facility] Last Admin: 02/01/17 10:15 Dose: 324 mg Home Med (Home Med) 1 unit PO DAILY [facility] Last Admin: 02/01/17 10:16 Dose: 1 unit Hydromorphone HCl (Dilaudid) 1 mg IVP Q4H PRN PRN Reason: Pain, moderate (4-7) Last Admin: 02/01/17 11:25 Dose: 1 mg Vancomycin HCl (Vancomycin 1gm) 250 mls @ 167 mls/hr IVPB Q12H [facility] PRN Reason: Protocol Last Admin: 02/01/17 06:30 Dose: 167 mls/hr Meropenem 1g/NS 100mL IVPB (Meropenem 1g/Ns 100ml Ivpb) 100 mls @ 100 mls/hr IVPB Q8 [facility] PRN Reason: Protocol Stop: 02/04/17 22:01 Last Admin: 02/01/17 13:30 Dose: 100 mls/hr Insulin Detemir (Levemir) 10 unit SC Q12H [facility] Last Admin: 02/01/17 10:19 Dose: 10 unit Insulin Human Regular (Humulin R Med) 0 units SC ACHS [facility] PRN Reason: Protocol Last Admin: 02/01/17 11:28 Dose: 7 units Losartan Potassium (Cozaar) 25 mg PO DAILY [facility] Last Admin: 02/01/17 10:15 Dose: 25 mg Metoprolol Tartrate (Lopressor) 25 mg PO BID [facility] Last Admin: 02/01/17 10:15 Dose: 25 mg Morphine Sulfate (Morphine) 4 mg IVP Q4H PRN PRN Reason: Pain, severe (8-10) Zolpidem Tartrate (Ambien) 5 mg PO HS PRN; Protocol PRN Reason: Insomnia Last Admin: 01/31/17 22:33 Dose: 5 mg - Labs Labs: 01/30/17 13:00 02/01/17 08:19 PT 11.5 Seconds (9.9-11.8) 01/28/17 09:10 INR 1.06 (0.93-1.08) 01/28/17 09:10 APTT 25.1 Seconds (23.7-30.8) 01/28/17 09:10 - Constitutional Appears: Non-toxic, No Acute Distress - Head Exam Head Exam: NORMAL INSPECTION - Respiratory Exam Respiratory Exam: Decreased Breath Sounds - Cardiovascular Exam Cardiovascular Exam: +S1, +S2 - GI/Abdominal Exam GI & Abdominal Exam: Soft. absent: Tenderness Assessment and Plan - Assessment and Plan (Free Text) Plan: Assessment Right 5th toe osteomyelitis in a patient with probable peripheral vascular disease S/P surgery POD #3 DM dyslipidemia S/P left TMA left lower extremity bypass for peripheral arterial disease S/P appendectomy Plan continue Vancomycin and Merrem day 4 pending OR cultures and pathology Will continue to follow clinically
[2017-02-01] MEDS: Morphine 4 mg/ml ISec IVP PRN (15:45)
[2017-02-01 17:35] VITALS: O2SAT 98
--- NOTE | 2017-02-01 21:51 | OP ---
PROCEDURE DATE: 01/30/2017 SURGEON: Dr. Mayank Watkins. DOBBY LOOMS PEGGER: Dr. Kee Lara. CARE TRAINER: Dr. Dhaliwal. ANESTHESIA: General IV with local. PREOPERATIVE DIAGNOSES: Right foot ischemic change to the fifth digit and nonhealing plantar ulcerat ion to right foot fifth digit. POSTOPERATIVE DIAGNOSES: Right foot ischemic change to the fifth digit and nonhealing plantar ulcera tion to right foot fifth digit. PROCEDURE PERFORMED: Right foot fifth digit amputation. INDICATIONS: The patient is a 71-year-old female patient with the above diagnoses. The patient has exhausted all conservative treatment at this time and now requires surgical intervention. The patien t signed the consent after careful explanation of risks, benefits, complications and alternatives for the surgical procedure. No guarantees were given nor implied. PREPARATION: The patient was brought into the operating room and placed on the operating room table in a supine position. Timeout was performed for identification of the correct patient and procedure. After induction of general anesthesia, the patient received a total of 10 mL of 1% lidocaine plain in a local block type fashion to the right foot around the fifth MPJ. Once local anesthesia was achi eved, the right foot and ankle was then prepped and draped in normal sterile manner. DESCRIPTION OF PROCEDURE: Attention was drawn to the right fifth digit where a circumferential incis ion was made at the level of the fifth metatarsophalangeal joint using a #15 blade. The incision was then extended down through the subcutaneous layers and into the level of bone using a bone clamp to stabilize the fifth digit. The fifth digit was then disarticulated from the foot at the level of the fifth metatarsophalangeal joint. This specimen was then passed from the operative field and sent to pathology. Using a fresh #15 blade, all necrotic and nonviable tissue was then excisionally debride d from the surgical site. The surgical site was then copiously flushed with normal sterile saline. Then the skin layers were reapproximated and coapted using #2-0 Prolene with simple suture techniques . The right foot was then dressed with Allevyn foam, 4 x 4 gauze and Kerlix. Immediate capillary re fill time was noted to the surgical site and remaining digits. POSTOPERATIVE CONDITION: The patient tolerated the anesthesia and procedure well and was escorted to the recovery room with vital signs stable and neurovascular status intact to the right foot. The pa tient is admitted to [facility] surg for continued monitoring and care. KEE LARA DPM Mayank Watkins DPM cc: [id number] TT: 02/01/2017 21:51:00 dn
--- NOTE | 2017-02-01 23:56 | PN ---
DATE: 02/01/2017 HISTORY OF PRESENT: The patient is a 71-year-old female admitted with pain in the right 5th toe whic h was going on for many weeks. She was found to have osteomyelitis of her right 5th toe; underwent a mputation of the right 5th toe. Complaining of pain in the right lower leg. She did not have fever, chills, rigors. She has chronic anemia, hemoglobin 11 g/dL, and currently on p.o. iron. She is also on metformin for diabetes mellitus, and Humalog. She was controlled on current regimen. She has peripheral vascular disease related to diabetes mellitus. She also has hypertension controlled on current medication. She was found to have granulocytosis on admission. ALLERGIES: OXYCODONE, ACETAMINOPHEN. CURRENT MEDICATIONS: Aspirin 81 mg daily, Colace 100 mg p.o. b.i.d., Lovenox 40 mg subQ daily, abel us sulfate 324 mg p.o. daily, Dilaudid 1 mg q. 6 hours p.r.n. for pain, Cozaar 25 mg daily, metoprolo l 25 mg p.o. b.i.d., morphine p.r.n., vancomycin, and Ambien. REVIEW OF SYSTEMS: As per HPI. Complaining of right foot pain. No fever. No cough, no chills, or rigors. A 12-point systems reviewed is negative. PAST MEDICAL HISTORY: Left foot ulcer, peripheral arterial disease, neuropathy, hypertension, diabet es mellitus type 2, chronic anemia. PAST SURGICAL HISTORY: Appendectomy, left leg bypass surgery. FAMILY HISTORY: Positive for diabetes in mother, father. SOCIAL HISTORY: Lives at home with spouse and daughter. Retired. No history of alcohol abuse. Non smoker. PHYSICAL EXAMINATION: Comfortable in bed, in no acute distress. Temperature 97.8, heart rate is 80 per minute, blood pressure 130/80. HENT: Normal. NECK: No lymphadenopathy. CHEST: Air entry present, equal bilateral. No added sound. CARDIOVASCULAR EXAMINATION: S1, S2 normal. No murmur, no gallop. ABDOMEN: Soft, nontender, no hepatosplenomegaly. EXTREMITIES: Right foot in dressing. NEUROLOGIC: Alert, oriented x 3. No focal sensorimotor deficit. SKIN: Intact, warm, moist. LYMPHADENOPATHY: None. SPINE: Nontender. LABORATORIES: White count 7.4, hemoglobin 11, hematocrit 32.8, MCV 83, platelet count 193. Sodium 1 39, potassium 4.5, creatinine 0.7, glucose 188, total bilirubin 0.7. AST 21, ALT 28. ASSESSMENT AND PLAN: 1. Right foot osteomyelitis, status post amputation. 2. Chronic anemia. 3. Peripheral vascular disease. 4. Diabetes mellitus type 2. 5. Hypertension. 6. Granulocytosis. PLAN: Status post right 5th toe amputation. Microbiology: All cultures negative. She is currently on vancomycin. ID following. She has chronic anemia. Anemia, multifactorial iron deficiency, or anemia related to chronic disease. She is currently on p. o. iron. Hemoglobin and hematocrit stable at 11 g/dL. Pain controlled with current medications. She is getting Ambien for sleep. DVT prophylaxis with Alex enox 40 mg subQ. Continue aspirin 81 mg daily, TCU evaluation. Awaiting transfer to transitional ca re unit. Bed not available. She is not ambulating. She is also complaining of constipation. Lactulose 30 mL 2 doses. Courtney Mccracken MD cc: [id number] TT: 02/01/2017 23:55:41 Confirmation # [id number] Dictation # [id number]
[2017-02-02] MEDS: HYDROmorphone 1 mg/ml ISec IVP PRN ×2 (03:32→07:53)
[2017-02-02] MEDS: Meropenem 1g/NS 100mL IVPB 100 ML IVPB SCH ×3 (05:29→21:41)
[2017-02-02] MEDS: Vancomycin 1gm in NS 250ml 250 ML IVPB SCH ×2 (05:30→17:22)
[2017-02-02] MEDS: Insulin Reg-MEDIUM-Coverage SC SCH ×4 (07:52→22:16)
--- NOTE | 2017-02-02 08:53 | CP.PCM.PN ---
Subjective - Date & Time of Evaluation Date of Evaluation: 02/02/17 Time of Evaluation: 08:52 - Subjective Subjective: Patient seen and evaluated at bedside, MOHINDER, Gege3. Patient states that she is comfortable, has pain to the right foot which is relieved with pain medication. She denies n/v/f/c/sob. Bandage is clean dry and intact to the RLE. Objective - Vital Signs/Intake and Output Vital Signs (last 24 hours): Temp Pulse Resp BP Pulse Ox 98.4 F 53 L 18 162/63 H 98 02/01/17 17:35 02/01/17 18:27 02/01/17 17:35 02/01/17 18:27 02/01/17 17:35 Intake and Output: 02/02/17 02/02/17 06:59 18:59 Intake Total 120 Balance 120 - Medications Medications: Current Medications Aspirin (Ecotrin) 81 mg PO DAILY [facility] Last Admin: 02/01/17 10:15 Dose: 81 mg Docusate Sodium (Colace) 100 mg PO BID [facility] Last Admin: 02/01/17 18:26 Dose: 100 mg Enoxaparin Sodium (Lovenox) 40 mg SC DAILY [facility] PRN Reason: Protocol Last Admin: 02/01/17 10:16 Dose: 40 mg Ferrous Sulfate (Feosol) 324 mg PO DAILY [facility] Last Admin: 02/01/17 10:15 Dose: 324 mg Home Med (Home Med) 1 unit PO DAILY [facility] Last Admin: 02/01/17 10:16 Dose: 1 unit Hydromorphone HCl (Dilaudid) 1 mg IVP Q4H PRN PRN Reason: Pain, moderate (4-7) Last Admin: 02/02/17 07:53 Dose: 1 mg Vancomycin HCl (Vancomycin 1gm) 250 mls @ 167 mls/hr IVPB Q12H [facility] PRN Reason: Protocol Last Admin: 02/02/17 05:30 Dose: 167 mls/hr Meropenem 1g/NS 100mL IVPB (Meropenem 1g/Ns 100ml Ivpb) 100 mls @ 100 mls/hr IVPB Q8 [facility] PRN Reason: Protocol Stop: 02/04/17 22:01 Last Admin: 02/02/17 05:29 Dose: 100 mls/hr Insulin Detemir (Levemir) 10 unit SC Q12H [facility] Last Admin: 02/01/17 22:00 Dose: 10 unit Insulin Human Regular (Humulin R Med) 0 units SC ACHS [facility] PRN Reason: Protocol Last Admin: 02/02/17 07:52 Dose: 1 units Losartan Potassium (Cozaar) 25 mg PO DAILY [facility] Last Admin: 02/01/17 10:15 Dose: 25 mg Metoprolol Tartrate (Lopressor) 25 mg PO BID [facility] Last Admin: 02/01/17 18:27 Dose: 25 mg Morphine Sulfate (Morphine) 4 mg IVP Q4H PRN PRN Reason: Pain, severe (8-10) Last Admin: 02/01/17 15:45 Dose: 4 mg Zolpidem Tartrate (Ambien) 5 mg PO HS PRN; Protocol PRN Reason: Insomnia Last Admin: 02/01/17 21:58 Dose: 5 mg - Labs Labs: 01/30/17 13:00 02/01/17 08:19 PT 11.5 Seconds (9.9-11.8) 01/28/17 09:10 INR 1.06 (0.93-1.08) 01/28/17 09:10 APTT 25.1 Seconds (23.7-30.8) 01/28/17 09:10 - Constitutional Appears: Well, Non-toxic, No Acute Distress - Neurological Exam Neurological Exam: Oriented x3 - Psychiatric Exam Psychiatric exam: Normal Affect, Normal Mood - Additional Findings Additional findings: DERMATOLOGIC: Right foot- surgical site at fifth digit amputation is well approximated, skin edges intact, nylon sutures in place. There is no erythema, no drainage, no purulence. Surrounding skin is intact, no open lesions present. VASCULAR: DP pulses 1/4 bilaterally, PT pulse is non palpable, Skin temperature is normal , there is no edema present at the surgical site. NEUROLOGIC: Protective sensation decreased ORTHOPEDIC: Mild pain on palpation to the right foot surgical site. There is 5th digit amputation on the right, TMA on the left. Assessment and Plan - Assessment and Plan (Free Text) Assessment: 71 year old female POD#3 for right foot 5th digit amputation. Plan: Patient seen and evaluated, d/w attending Dr. Watkins. Patients right foot cleansed with sterile saline and dressed with allevyn, DSD, kerlix. Continue current pain regimen Podiatry will continue to follow
[2017-02-02] MEDS: Enoxaparin 40 mg Syringe SC SCH (09:26)
[2017-02-02] MEDS: ZOCOR 20 MG PO SCH (09:26)
[2017-02-02] MEDS: Insulin Detemir 100 units/ml Vial (Levemir) SC SCH (12:21)
[2017-02-02] MEDS: Morphine 4 mg/ml ISec IVP PRN ×3 (12:27→21:41)
--- NOTE | 2017-02-02 13:36 | CP.PCM.PN ---
Subjective - Date & Time of Evaluation Date of Evaluation: 02/02/17 Time of Evaluation: 12:30 - Subjective Subjective: Comfortable in bed, not in distress, less pain in the foot, no nausea, no fevers overnight, no diarrhea. Objective - Vital Signs/Intake and Output Vital Signs (last 24 hours): Temp Pulse Resp BP Pulse Ox 98.1 F 58 L 19 160/56 H 98 02/02/17 09:37 02/02/17 09:37 02/02/17 09:37 02/02/17 09:37 02/02/17 09:37 Intake and Output: 02/02/17 02/02/17 06:59 18:59 Intake Total 120 Balance 120 - Medications Medications: Current Medications Aspirin (Ecotrin) 81 mg PO DAILY [facility] Last Admin: 02/02/17 09:25 Dose: 81 mg Docusate Sodium (Colace) 100 mg PO BID [facility] Last Admin: 02/02/17 09:26 Dose: 100 mg Enoxaparin Sodium (Lovenox) 40 mg SC DAILY [facility] PRN Reason: Protocol Last Admin: 02/02/17 09:26 Dose: 40 mg Ferrous Sulfate (Feosol) 324 mg PO DAILY [facility] Last Admin: 02/02/17 09:26 Dose: 324 mg Home Med (Home Med) 1 unit PO DAILY [facility] Last Admin: 02/02/17 09:26 Dose: 1 unit Hydromorphone HCl (Dilaudid) 1 mg IVP Q4H PRN PRN Reason: Pain, moderate (4-7) Last Admin: 02/02/17 07:53 Dose: 1 mg Vancomycin HCl (Vancomycin 1gm) 250 mls @ 167 mls/hr IVPB Q12H [facility] PRN Reason: Protocol Last Admin: 02/02/17 05:30 Dose: 167 mls/hr Meropenem 1g/NS 100mL IVPB (Meropenem 1g/Ns 100ml Ivpb) 100 mls @ 100 mls/hr IVPB Q8 [facility] PRN Reason: Protocol Stop: 02/04/17 22:01 Last Admin: 02/02/17 05:29 Dose: 100 mls/hr Insulin Detemir (Levemir) 10 unit SC Q12H [facility] Last Admin: 02/02/17 12:21 Dose: 10 unit Insulin Human Regular (Humulin R Med) 0 units SC ACHS [facility] PRN Reason: Protocol Last Admin: 02/02/17 12:22 Dose: 3 units Losartan Potassium (Cozaar) 25 mg PO DAILY [facility] Last Admin: 02/02/17 09:25 Dose: 25 mg Metoprolol Tartrate (Lopressor) 25 mg PO BID [facility] Last Admin: 02/02/17 09:25 Dose: 25 mg Morphine Sulfate (Morphine) 4 mg IVP Q4H PRN PRN Reason: Pain, severe (8-10) Last Admin: 02/02/17 12:27 Dose: 4 mg Zolpidem Tartrate (Ambien) 5 mg PO HS PRN; Protocol PRN Reason: Insomnia Last Admin: 02/01/17 21:58 Dose: 5 mg - Labs Labs: 01/30/17 13:00 02/01/17 08:19 PT 11.5 Seconds (9.9-11.8) 01/28/17 09:10 INR 1.06 (0.93-1.08) 01/28/17 09:10 APTT 25.1 Seconds (23.7-30.8) 01/28/17 09:10 - Constitutional Appears: Non-toxic, No Acute Distress - Head Exam Head Exam: NORMAL INSPECTION - ENT Exam ENT Exam: Mucous Membranes Moist - Neck Exam Neck Exam: absent: Lymphadenopathy, Meningismus - Respiratory Exam Respiratory Exam: Decreased Breath Sounds - Cardiovascular Exam Cardiovascular Exam: +S1, +S2 - GI/Abdominal Exam GI & Abdominal Exam: Soft. absent: Tenderness Assessment and Plan - Assessment and Plan (Free Text) Plan: Assessment Right 5th toe osteomyelitis in a patient with probable peripheral vascular disease S/P surgery POD #4 DM dyslipidemia S/P left TMA left lower extremity bypass for peripheral arterial disease S/P appendectomy Plan continue Vancomycin and Merrem day 5 pending OR cultures and pathology Will continue to follow clinically
--- NOTE | 2017-02-02 15:36 | CP.PCM.PN ---
Subjective - Date & Time of Evaluation Date of Evaluation: 02/02/17 Time of Evaluation: 15:32 - Subjective Subjective: Patient has very poor veins,needs iv access. Objective - Vital Signs/Intake and Output Vital Signs (last 24 hours): Temp Pulse Resp BP Pulse Ox 98.1 F 58 L 19 160/56 H 98 02/02/17 09:37 02/02/17 09:37 02/02/17 09:37 02/02/17 09:37 02/02/17 09:37 Intake and Output: 02/02/17 02/02/17 06:59 18:59 Intake Total 120 600 Output Total 500 Balance 120 100 - Medications Medications: Current Medications Aspirin (Ecotrin) 81 mg PO DAILY [facility] Last Admin: 02/02/17 09:25 Dose: 81 mg Docusate Sodium (Colace) 100 mg PO BID [facility] Last Admin: 02/02/17 09:26 Dose: 100 mg Enoxaparin Sodium (Lovenox) 40 mg SC DAILY [facility] PRN Reason: Protocol Last Admin: 02/02/17 09:26 Dose: 40 mg Ferrous Sulfate (Feosol) 324 mg PO DAILY [facility] Last Admin: 02/02/17 09:26 Dose: 324 mg Home Med (Home Med) 1 unit PO DAILY [facility] Last Admin: 02/02/17 09:26 Dose: 1 unit Hydromorphone HCl (Dilaudid) 1 mg IVP Q4H PRN PRN Reason: Pain, moderate (4-7) Last Admin: 02/02/17 07:53 Dose: 1 mg Vancomycin HCl (Vancomycin 1gm) 250 mls @ 167 mls/hr IVPB Q12H [facility] PRN Reason: Protocol Last Admin: 02/02/17 05:30 Dose: 167 mls/hr Meropenem 1g/NS 100mL IVPB (Meropenem 1g/Ns 100ml Ivpb) 100 mls @ 100 mls/hr IVPB Q8 [facility] PRN Reason: Protocol Stop: 02/04/17 22:01 Last Admin: 02/02/17 14:37 Dose: 100 mls/hr Insulin Detemir (Levemir) 10 unit SC Q12H [facility] Last Admin: 02/02/17 12:21 Dose: 10 unit Insulin Human Regular (Humulin R Med) 0 units SC ACHS [facility] PRN Reason: Protocol Last Admin: 02/02/17 12:22 Dose: 3 units Losartan Potassium (Cozaar) 25 mg PO DAILY [facility] Last Admin: 02/02/17 09:25 Dose: 25 mg Metoprolol Tartrate (Lopressor) 25 mg PO BID [facility] Last Admin: 02/02/17 09:25 Dose: 25 mg Morphine Sulfate (Morphine) 4 mg IVP Q4H PRN PRN Reason: Pain, severe (8-10) Last Admin: 02/02/17 12:27 Dose: 4 mg Zolpidem Tartrate (Ambien) 5 mg PO HS PRN; Protocol PRN Reason: Insomnia Last Admin: 02/01/17 21:58 Dose: 5 mg - Labs Labs: 01/30/17 13:00 02/01/17 08:19 PT 11.5 Seconds (9.9-11.8) 01/28/17 09:10 INR 1.06 (0.93-1.08) 01/28/17 09:10 APTT 25.1 Seconds (23.7-30.8) 01/28/17 09:10 - Constitutional Appears: No Acute Distress Assessment and Plan - Assessment and Plan (Free Text) Assessment: Poor venous access Plan: Hep lock inserted in the L forearm. # 22 angiocath used.
[2017-02-02 18:21] VITALS: TEMP 98.4
[2017-02-03] MEDS: Insulin Detemir 100 units/ml Vial (Levemir) SC SCH ×2 (05:30→12:09)
[2017-02-03] MEDS: HYDROmorphone 1 mg/ml ISec IVP PRN (05:41)
[2017-02-03] MEDS: Meropenem 1g/NS 100mL IVPB 100 ML IVPB SCH ×2 (05:41→13:33)
[2017-02-03] MEDS: Vancomycin 1gm in NS 250ml 250 ML IVPB SCH (06:10)
--- NOTE | 2017-02-03 07:28 | PN ---
DATE: 02/03/2017 SUBJECTIVE: The patient has no complaints of any chest pain, no shortness of breath, no headaches, n o dizziness. PHYSICAL EXAMINATION: VITAL SIGNS: Temperature is 98.4, pulse of 62, blood pressure 147/69, respirations 20. GENERAL: The patient comfortable, in no acute distress. HEENT: Anicteric sclerae. Moist mucosa. NECK: No JVD or adenopathy. CARDIAC: S1/S2. No murmurs. No rubs. Regular. RESPIRATORY: Clear to auscultation bilaterally. No wheezes, rales, or rhonchi. Good air entry. ABDOMEN: Bowel sounds are positive, soft, nontender, and nondistended. EXTREMITIES: No edema. Has 1+ pulses. LABORATORIES: White count of 7.4, hemoglobin 11. Creatinine is 0.7. ASSESSMENT: 1. Status post amputation of the right fifth toe, secondary to osteomyelitis. 2. Right fifth toe osteomyelitis. 3. Peripheral arterial disease with left leg bypass. 4. Dyslipidemia. 5. Diabetes type 2. 6. Hypertension. 7. History of left transmetatarsal amputation. PLAN: The patient is currently on Lovenox for deep venous thrombosis prophylaxis. She is receiving morphine, is on Dilaudid for pain. The patient is on Colace for constipation. She is receiving vanc omycin. She is ALLERGIC TO OXYCODONE. May need to put her on Dilaudid for oral pain management. Jose Mckeon MD cc: [id number] TT: 02/03/2017 07:26:52 Confirmation # [id number] Dictation # [id number] en
[2017-02-03 07:48] VITALS: BP 142/48; PULSE 61; RESP 18
[2017-02-03] MEDS: Morphine 4 mg/ml ISec IVP PRN ×2 (08:07→13:33)
[2017-02-03] MEDS: Insulin Reg-MEDIUM-Coverage SC SCH ×2 (08:08→12:09)
[2017-02-03] MEDS ORDERED: Morphine 15 mg Immediate Release Tab PO PRN (09:03)
[2017-02-03] MEDS: Enoxaparin 40 mg Syringe SC SCH (09:27)
[2017-02-03] MEDS: ZOCOR 20 MG PO SCH (09:29)
[2017-02-03 10:00] LABS: HEMATOCRIT 33.2 % (36.0-48.0); MEAN CORPUSCULAR HEMOGLOBIN 27.3 pg (25.0-35.0); MEAN CORPUSCULAR HGB CONC 32.8 g/dl (31.0-37.0); RED CELL DISTRIBUTION WIDTH 12.9 % (11.5-14.5); WHITE BLOOD COUNT 6.4 10^3/ul (4.5-11.0)
[2017-02-03 10:11] LABS: ALKALINE PHOSPHATASE 56 U/L (38-133); ALT/SGPT 27 U/L (7-56); AST/SGOT 24 U/L (15-39); BILIRUBIN,TOTAL 0.6 mg/dL (0.2-1.3); BLOOD UREA NITROGEN 17 mg/dL (7-21); CALCIUM 9.3 mg/dL (8.4-10.5); CARBON DIOXIDE 30 mmol/L (21-33); CHLORIDE 101 mmol/L (95-110); GFR AFRICAN-AMERICAN > 60; GLUCOSE,RANDOM 186 mg/dL (70-110); POTASSIUM 3.8 mmol/L (3.6-5.0); SODIUM 138 mmol/L (132-148); TOTAL PROTEIN 6.6 g/dL (5.8-8.3)
--- NOTE | 2017-02-03 10:28 | PN ---
DATE: 02/03/2017 TIME: 0700 hours. LOCATION: Room 364, bed 1. SUBJECTIVE: This is a 71-year-old white female patient known to me, who is status post amputation of the right fifth toe on 01/30/2017. She complains of controllable levels of pain in the stump where the toe had been amputated, and she continues to complain of her coexisting peripheral neuropathy linda n. She reports not having a postop surgical shoe and having had no significant out of bed time or an y physical therapy over the weekend. OBJECTIVE: The patient is alert and oriented x 3 with vital signs stable and no acute distress. The surgical dressing is removed. There is no discharge on the gauze dressing. There is no discharge o n the wound. There is no evidence of wound dehiscence or suture rupture. There is minimal local yvette thema at the level of the amputation stump on the right foot. She has weakly palpable and nonpalpabl e pulses on the right lower extremity; however, the limb is warm and there is no evidence of cellulit is, lymphangitis and no calf tenderness. LABORATORY AND X-RAY DATA: Reviewed. Her white count has reduced into the 7 range and she has a pos itive intraoperative culture of pseudomonas and no anaerobic organisms are appreciated. The postoper ative x-rays taken on 01/30 indicate no evidence of periosteal elevation or bony destruction in any o f the remaining toes or in any of the metatarsals. IMPRESSION: Status post amputation of the fifth toe secondary to osteomyelitis in an insulin-depende nt diabetic patient with extreme peripheral neuropathy and painful peripheral neuropathy and peripher al artery disease along with hypertension and dyslipidemia. PLAN: The wound is redressed with a plain dry gauze dressing. No ointment, iodine solutions or liqu ids are applied to the wound, and she is advised to change this gauze dressing daily and to keep the foot dry out of the shower water. Orders will be written for her to receive a pair of both right and left foot postop surgical shoes. Orders will be written for out of bed, encouraging walking with a rolling walker and observe the controls for fall prevention. Physical therapy will be reconsulted fo r gait training and walker training in anticipation of possible discharge, and I will contact Dr. Diallo on with recommendations of a potential at-home antibiotic to cover her successfully for the pseudomon as organism. Mayank Watkins DPM cc: [id number] TT: 02/03/2017 10:27:50 Confirmation # [id number] Dictation # [id number] an
--- NOTE | 2017-02-03 23:09 | PN ---
DATE: 02/03/2017 The patient seen earlier this morning in 364, bed 1. The patient has been tolerating the antibiotics well. No fevers and no chills. PHYSICAL EXAMINATION: VITAL SIGNS: Temperature is 98, blood pressure is 140/40, respiratory rate of 16. HEENT: Unremarkable. NECK: Supple. LUNGS: Have decreased breath sounds. HEART: Normal S1, S2. ABDOMEN: Soft. LABORATORY DATA: Noted. Microbiology is noted to have pseudomonas in the right foot. ASSESSMENT AND PLAN: This is a 71-year-old female status post right fifth toe osteomyelitis in the [facility] with probable peripheral vascular disease, status post surgery, postop day #5 and diabetic dys lipidemia and with a history of left transmetatarsal amputation on vancomycin and meropenem day #6. Awaiting for final culture and pathology results. We will follow closely with you. Santino Johnson MD cc: [id number] TT: 02/03/2017 23:09:39 Confirmation # [id number] Dictation # [id number] mn
[2017-02-04 14:46] LABS: CCP IGG <16 Units (<20)
== END 2017-02-03 15:38 | DRG 617 ==
LOC: ED 08:15 → ERH 10:52 → 3RNO 13:32
PROVIDERS: ADMIT Internal Medicine Nephrology; ATTEND Internal Medicine Nephrology
PROC: 0JBQ0ZZ Excision of Right Foot Subcutaneous Tissue and Fascia, Open Approach (ICD-10-PCS; 2017-01-30)
PROC: 0Y6X0Z0 Detachment at Right 5th Toe, Complete, Open Approach (ICD-10-PCS; principal; 2017-01-30 07:30)
DX: E11.69 Type 2 diabetes mellitus with other specified complication (principal); M86.171 Other acute osteomyelitis, right ankle and foot; E11.51 Type 2 diabetes mellitus with diabetic peripheral angiopathy without gangrene; L97.519 Non-pressure chronic ulcer of other part of right foot with unspecified severity; E11.621 Type 2 diabetes mellitus with foot ulcer; E11.42 Type 2 diabetes mellitus with diabetic polyneuropathy; E11.628 Type 2 diabetes mellitus with other skin complications; L03.031 Cellulitis of right toe; B96.5 Pseudomonas (aeruginosa) (mallei) (pseudomallei) as the cause of diseases classified elsewhere; I10 Essential (primary) hypertension; E78.5 Hyperlipidemia, unspecified; I25.10 Atherosclerotic heart disease of native coronary artery without angina pectoris; Z89.432 Acquired absence of left foot; Z79.82 Long term (current) use of aspirin; Z79.4 Long term (current) use of insulin; K59.09 Other constipation; D64.9 Anemia, unspecified

== ENCOUNTER 2017-02-03 15:38 | Inpatient (IN) | payer OTHER, MEDICARE ==
[2017-02-03] MEDS: Insulin Reg-MEDIUM-Coverage SC SCH ×2 (17:30→21:49)
[2017-02-03] MEDS: Vancomycin 1gm in NS 250ml 250 ML IVPB SCH ×3 (17:59→18:09)
[2017-02-03] MEDS: Morphine 15 mg Immediate Release Tab PO PRN (18:05)
[2017-02-03] MEDS ORDERED: Pneumococcal 23-Valent Vaccine IM ONE (18:17)
[2017-02-03] MEDS: Meropenem 1g/NS 100mL IVPB 100 ML IVPB SCH (21:52)
[2017-02-03] MEDS: Insulin Detemir 100 units/ml Vial (Levemir) SC SCH (22:51)
[2017-02-04] MEDS: Meropenem 1g/NS 100mL IVPB 100 ML IVPB SCH ×3 (05:32→21:38)
[2017-02-04] MEDS: Enoxaparin 40 mg Syringe SC SCH (05:32)
[2017-02-04] MEDS: Morphine 15 mg Immediate Release Tab PO PRN ×2 (05:33→11:10)
[2017-02-04] MEDS: Vancomycin 1gm in NS 250ml 250 ML IVPB SCH ×2 (05:34→17:20)
[2017-02-04] MEDS ORDERED: Enoxaparin 40 mg Syringe SC SCH (06:00)
[2017-02-04] MEDS: Insulin Reg-MEDIUM-Coverage SC SCH ×4 (06:46→21:39)
--- NOTE | 2017-02-04 07:25 | PN ---
DATE: 02/04/2017 SUBJECTIVE: This is a 71-year-old female who came in to the transitional care unit for rehabilitatio n after she had amputation of a right 5th toe. The patient has a past medical history of diabetes. She was found to have osteomyelitis of the right 5th toe, so she was taken to the OR by Dr. Watkins and had an amputation. She did fairly well. The patient's pathology report is pending. I reviewed the patient's initial H and P and I agree with this. She is going to get the transitional care unit for rehab. She has no complaints of any headaches or dizziness. No nausea or vomiting. PHYSICAL EXAMINATION: VITAL SIGNS: Temperature is 98.4, pulse of 56, blood pressure 150/69, respirations 18. GENERAL: The patient comfortable, in no acute distress. HEENT: Anicteric sclerae. Moist mucosa. NECK: No JVD or adenopathy. CARDIAC: S1/S2. No murmurs. No rubs. Regular. RESPIRATORY: Clear to auscultation bilaterally. No wheezes, rales, or rhonchi. Good air entry. ABDOMEN: Bowel sounds are positive, soft, nontender, and nondistended. EXTREMITIES: No edema. Has 1+ pulses. ASSESSMENT: 1. Status post amputation of the right 5th toe secondary to osteomyelitis. 2. Right 5th toe osteomyelitis. 3. Peripheral arterial disease with left leg bypass. 4. Dyslipidemia. 5. Diabetes, type 2. 6. Hypertension. PLAN: The patient is currently on ____. She is going to continue to take losartan for hypertension. This patient is on iron replacement. She is on Levemir for her diabetes. The patient is on Lovenox for DVT prophylaxis. She is on meropenem for antibiotics. The patient is on morphine orally for pa in. She is on vancomycin for antibiotics as well. She is on a heart healthy diet. Jose Mckeon MD cc: [id number] TT: 02/04/2017 07:24:39 Confirmation # [id number] Dictation # [id number] mn
[2017-02-04] MEDS: Insulin Detemir 100 units/ml Vial (Levemir) SC SCH ×2 (07:55→21:39)
--- NOTE | 2017-02-04 08:58 | CON ---
DATE: 02/04/2017 LOCATION: TCU, bed 319. REASON FOR CONSULTATION: The patient has been admitted to the TCU for rehabilitation following amput ation of an ulcerative osteomyelitic fifth toe on the right foot 5 days prior in a neuropathic diabet ic PAD patient. HISTORY OF PRESENT ILLNESS: The patient had longstanding diabetes and neuropathy with severe PAD, rodriguez d undergone multiple amputations over the last 2 years, culminating in a left foot TMA, and a nonheal ing ulcer on the right fifth toe over the last 3-4 months, which developed into osteomyelitis of the phalanx. After exhaustive efforts at local wound care failed, the right fifth toe was amputated at t he metatarsophalangeal joint on 01/30/2017. PAST MEDICAL HISTORY: Includes insulin-dependent diabetes mellitus, peripheral neuropathy, periphera l artery disease, coronary artery disease, hypertension, and dyslipidemia. REVIEW OF SYSTEMS: Is performed, and the patient denies any findings except those related to the his tory of present illness. She does report continued neuropathy and tenderness putting the right foot onto the floor across the entire forefoot. She does admit some reduction in the pain with the absenc e of the fifth toe. MEDICATIONS: Medication list is as per the admission documents and unchanged from her prior admissio n. ALLERGIES: THE PATIENT HAS A KNOWN ALLERGY TO PERCOCET AND OXYCODONE. SOCIAL HISTORY: The patient denies alcohol, tobacco, and recreational drug use. She lives with a cl ose-knit family with a good support structure. PHYSICAL EXAMINATION: GENERAL: The patient is alert and oriented, lying in bed comfortably. No complaints, no acute distr ess. VITAL SIGNS: Stable, and she is in good condition. EXTREMITIES: Lower extremity examination reveals weak and nonpalpable pulses to the lower extremity. The lower extremities on both feet are warm to the touch. There are no cyanosis or gangrene change s anywhere. There is no heel or ankle decubiti, and the calf is nontender and supple bilaterally. T he TMA on the left foot remains healed with no discharge or inflammation. The right foot dressings a re removed, and the right fifth toe amputation site remains dry, coapted at the suture line with no d ischarge and no local inflammation or cellulitis. LABORATORY AND X-RAY DATA: Reviewed. Postoperative x-rays indicate an amputated right fifth toe and no evidence of osseous breakdown or osteomyelitic changes in the remainder of the right foot. There is some calcification of the blood vessels on x-ray. Her white count remains in the normal range. IMPRESSION: Diabetic neuropathic peripheral arterial disease patient, status post amputation of the right fifth toe with an improving wound on IV antibiotic per infectious disease for a culture of pseu domonas. We are awaiting the final sensitivity results. She remains on IV antibiotic of choice. PLAN: The foot is redressed with a dry gauze dressing and wrapped. No Betadine or ointments are uti lized on the wound site. The patient has been dispensed bilateral postoperative shoes to begin gait training in anticipation of discharge later in the week. She has been supplied with a rolling walker for said gait training. She will be maintained on IV antibiotic per the medical and ID team until t he sensitivities reveal what p.o. antibiotic to discharge the patient with. Following a period of ph ysical therapy and rehab to improve the patient's gait, we anticipate the ability to discharge the pa tient weightbearing with walker or cane assistance back home at some point before the holiday. Dry d ressings on the wound site only until suture removal in approximately 2 weeks. Mayank Watkins DPM cc: [id number] TT: 02/04/2017 08:57:42 Confirmation # [id number] Dictation # [id number] king
[2017-02-04] MEDS: ZOCOR 20 MG PO SCH (09:59)
[2017-02-04] MEDS ORDERED: Home Med 1 UNIT PO SCH (10:00)
--- NOTE | 2017-02-04 15:23 | CON ---
DATE: 02/04/2017 The patient was seen early this morning in transitional care in 319. CHIEF COMPLAINT: Weakness times several days. HISTORY OF PRESENT ILLNESS: This is a 71-year-old female known to me from previous admissions, who w as in the acute care and patient with history of diabetes mellitus, history of left transmetatarsal a mputation, peripheral artery disease, history of appendectomy, who had been complaining of the right fifth toe discomfort, was seen the acute care, had an amputation and now transferred to transitional care for further therapy in this patient who has a history of coronary artery disease, diabetes and h ypertension. REVIEW OF SYSTEMS: At this time she denies any fevers. She is complaining of weakness, no chest linda n. No abdominal pain, diarrhea or constipation. No bright red blood per rectum. PAST MEDICAL HISTORY: Significant for coronary artery disease, hypertension, dyslipidemia, diabetes mellitus and peripheral artery disease in addition to the coronary artery disease and hypertension. PAST SURGICAL HISTORY: Significant for appendectomy and a left transmetatarsal amputation. ALLERGIES: THE PATIENT HAS MULTIPLE ALLERGIES INCLUDING ATORVASTATIN WHICH IS LIPITOR AND PERCOCET A ND EQUAL. MEDICATIONS: Reviewed. PHYSICAL EXAMINATION: VITAL SIGNS: Temperature is 98, blood pressure is 140/50, respiratory rate of 20, heart rate of 60. HEENT: Unremarkable. NECK: Supple. LUNGS: Have decreased breath sounds. HEART: Normal S1, S2. ABDOMEN: Soft, nontender. EXTREMITIES: Examination of foot has a dressing. LABORATORY EXAMINATION: Reveals a white count of 6.4. Sed rate of 66. Chemistries reveals the BUN of 17, creatinine of 0.6. The urinalysis is noted. Microbiology reveals there is pseudomonas from t he foot culture from the 6th. Another microbiology reveals also pseudomonas, the same sensitivity, w [facility] reveals to be sensitive to imipenem and cefepime. ASSESSMENT AND PLAN: This is a 71-year-old female with history of peripheral artery disease, coronar y artery disease, hypertension, dyslipidemia, diabetes mellitus and coronary artery disease status po st amputation of the right fifth toe, postop day #6 with pseudomonas on meropenem day #7 and vancomyc in. We will check on the OR cultures and the OR pathology. We will make further recommendations reg arding antibiotics and the duration based on the OR cultures and the pathology results. Currently on meropenem with pseudomonas wound infection. Will follow closely with you. Santino Johnson MD cc: [id number] TT: 02/04/2017 15:23:35 Confirmation # [id number] Dictation # [id number] an
[2017-02-04] MEDS: Morphine 4 mg/ml ISec IVP PRN ×2 (16:00→20:49)
[2017-02-05] MEDS: Enoxaparin 40 mg Syringe SC SCH (05:43)
[2017-02-05] MEDS: Meropenem 1g/NS 100mL IVPB 100 ML IVPB SCH ×3 (05:43→21:44)
[2017-02-05] MEDS: Insulin Reg-MEDIUM-Coverage SC SCH ×4 (06:53→21:46)
[2017-02-05] MEDS: Insulin Detemir 100 units/ml Vial (Levemir) SC SCH ×2 (06:53→21:46)
--- NOTE | 2017-02-05 08:05 | CP.PCM.CON ---
History of Present Illness - History of Present Illness History of Present Illness: 71 year old female patient with PMHx of DM, HLD, 6 days s/p Right foot 5th digit amputation was seen at bedside this morning. Patient was resting comfortably in bed with no acute overnight distress. AAO x3. She states that Dr. Watkins stopped by and changed her dressings yesterday. Patient states that she feels moderate pain to the surgical site only when touched. Dressing to Right foot remains clean, dry and intact. Patient denies of any N/V/F/C or SOB today Past Patient History - Infectious Disease Hx of Infectious Diseases: None - Tetanus Immunizations Tetanus Immunization: Unknown - Past Medical History & Family History Past Medical History?: Yes - Past Social History Smoking Status: Former Smoker - CARDIAC Hx Cardiac Disorders: Yes Hx Hypertension: Yes - PULMONARY Hx Chronic Obstructive Pulmonary Disease (COPD): No - NEUROLOGICAL Hx Neurological Disorder: Yes (neuropathy ble) Hx Transient Ischemic Attacks (TIA): No - HEENT Hx HEENT Problems: Yes Hx Blind: No Hx Cataracts: Yes (Removed) Hx Deafness: No Hx Difficulty Chewing: No Hx Epistaxis: No Hx Glaucoma: No Hx Macular Degeneration: No - RENAL Hx Renal Failure: No - ENDOCRINE/METABOLIC Hx Diabetes Mellitus Type 2: Yes - HEMATOLOGICAL/ONCOLOGICAL Hx Blood Disorders: No Hx AIDS: No Hx Anemia: No Hx Cancer: No Hx Chemotherapy: No Hx Cirrhosis: No Hx Hepatitis A: No Hx Hepatitis B: No Hx Hepatitis C: No Hx Metastesis: No Hx Shingles: No Hx Unexplained Bleeding: No - INTEGUMENTARY Hx Dermatological Problems: No Hx Basil Cell: No Hx Eczema: No Hx Melanoma: No Hx Psoriasis: No Hx Squamous Cell: No - MUSCULOSKELETAL/RHEUMATOLOGICAL Hx Falls: No - GASTROINTESTINAL Hx Gastrointestinal Disorders: No Hx Colostomy: No Hx Crohn's Disease: No Hx Diverticulitis: No Hx Gall Bladder Disease: No Hx Gastroesophageal Reflux: No Hx Ileostomy: No Hx Liver Failure: No Hx Pancreatitis: No HX Swallowing Problems: No Other/Comment: chronic constipation - GENITOURINARY/GYNECOLOGICAL Hx Reproductive Disorders: No - PSYCHIATRIC Hx Emotional Abuse: No Hx Physical Abuse: No Hx Substance Use: No - SURGICAL HISTORY Hx Amputation: Yes (Partial Left foot) Hx Appendectomy: Yes - ANESTHESIA Hx Anesthesia: Yes Hx Anesthesia Reactions: No Hx Malignant Hyperthermia: No Meds Allergies/Adverse Reactions: Allergies Allergy/AdvReac Type Severity Reaction Status Date / Time aspartame Allergy Mild HEADACHE Verified 02/03/17 20:05 oxycodone Allergy Mild HEADACHE Verified 02/03/17 20:05 acetaminophen [From Percocet] Allergy SHORTNESS Verified 02/03/17 20:05 OF BREATH atorvastatin calcium Allergy Pt gets Verified 02/03/17 20:05 [From Lipitor] 'hyper' oxycodone HCl [From Percocet] Allergy SHORTNESS Verified 02/03/17 20:05 OF BREATH Equal Allergy HEADACHE Uncoded 02/03/17 20:05 - Medications Medications: Current Medications Aspirin (Ecotrin) 81 mg PO 0800 [facility] PRN Reason: Protocol Last Admin: 02/04/17 07:52 Dose: 81 mg Docusate Sodium (Colace) 100 mg PO BID [facility] Reason: Protocol Last Admin: 02/04/17 17:10 Dose: 100 mg Enoxaparin Sodium (Lovenox) 40 mg SC 0600 [facility]N Reason: Protocol Last Admin: 02/05/17 05:43 Dose: 40 mg Ferrous Sulfate (Feosol) 324 mg PO 0800 [facility] Last Admin: 02/04/17 07:52 Dose: 324 mg Home Med (Home Med) 1 unit PO DAILY [facility] Last Admin: 02/04/17 09:59 Dose: 1 unit Meropenem 1g/NS 100mL IVPB (Meropenem 1g/Ns 100ml Ivpb) 100 mls @ 100 mls/hr IVPB Q8 [facility] PR[facility] Reason: Protocol Stop: 02/13/17 22:01 Last Admin: 02/05/17 05:43 Dose: 100 mls/hr Insulin Detemir (Levemir) 10 unit SC ACBHS [facility] Last Admin: 02/05/17 06:53 Dose: 10 unit Insulin Human Regular (Humulin R Med) 0 units SC ACHS [facility] PRN Reason: Protocol Last Admin: 02/05/17 06:53 Dose: 3 units Losartan Potassium (Cozaar) 25 mg PO DAILY [facility] Reason: Protocol Last Admin: 02/04/17 09:58 Dose: 25 mg Metoprolol Tartrate (Lopressor) 25 mg PO 0800,1700 [facility] Reason: Protocol Last Admin: 02/04/17 17:14 Dose: 25 mg Morphine Sulfate (Morphine) 4 mg IVP Q4H PRN; Protocol PRN Reason: Pain, severe (8-10) Last Admin: 02/04/17 20:49 Dose: 4 mg Morphine Sulfate (Morphine Immediate Release Tab) 15 mg PO Q6 PRN; Protocol PRN Reason: Pain, moderate (4-7) Last Admin: 02/04/17 11:10 Dose: 15 mg Zolpidem Tartrate (Ambien) 5 mg PO HS PRN; Protocol PRN Reason: Insomnia Last Admin: 02/04/17 23:15 Dose: 5 mg Physical Exam - Constitutional Appears: Well, Non-toxic, No Acute Distress - Extremities Exam Additional comments: Right lower extremity exam DERM: Incision site well coapted with all sutures intact. No dehiscence is noted. No maceration is noted to the incision site. No drainage is noted. No pus noted. No mal-odor noted. No signs consistent with infection is noted. VASC: Palpable DP noted bilaterally 1/4. Non-palpable PT noted bilaterally. ENTERTAINMENT LAWYER less than 3 seconds noted to all digits. NEURO: Gross sensation intact - Neurological Exam Neurological exam: Alert, Oriented x3 - Psychiatric Exam Psychiatric exam: Normal Affect, Normal Mood - Skin Skin Exam: Normal Color, Warm Results - Vital Signs Recent Vital Signs: Last Vital Signs Temp 98 F 02/04/17 12:10 Pulse 62 02/04/17 17:14 Resp 20 02/04/17 12:10 BP 191/67 H 02/04/17 17:14 Pulse Ox 97 02/04/17 12:10 - Labs Labs: Laboratory Results - last 24 hr 02/03/17 02/04/17 02/04/17 21:38 10:59 16:10 POC Glucose (mg/dL) 218 H 273 H 231 H 02/04/17 02/05/17 21:39 05:06 POC Glucose (mg/dL) 228 H 234 H Assessment & Plan - Assessment and Plan (Free Text) Assessment: 71 year old female patient present 6 days s/p Right 5th digit amputation Plan: Patient was seen, evaluated, treated at bedside this AM labs and vitals reviewed discussed in detail with Dr. Watkins New dressings applied to right foot; DSD Pain medication as per Medicine Podiatry will continue to follow in-house
[2017-02-05] MEDS: Morphine 15 mg Immediate Release Tab PO PRN ×3 (08:21→21:45)
[2017-02-05] MEDS: ZOCOR 20 MG PO SCH (09:48)
--- NOTE | 2017-02-05 15:18 | PN ---
DATE: 02/05/2017 The patient seen earlier today. No fevers and chills. PHYSICAL EXAMINATION: VITAL SIGNS: Temperature is 98, blood pressure is 150/50, respiratory rate of 16. HEENT: Unremarkable. NECK: Supple. LUNGS: Decreased breath sounds. HEART: Normal S1, S2. ABDOMEN: Soft. LABORATORY EXAMINATION: Noted. ASSESSMENT AND PLAN: A 71-year-old female with history of peripheral artery disease, coronary artery disease, hypertension, dyslipidemia, diabetes mellitus, coronary artery disease and status post ampu tation of right fifth toe, postop day #7, with pseudomonas, on meropenem day #8 and vancomycin. Review of the microbiology reveals the operating room cultures to grow from the 6th ____ cultures hav e been growing pseudomonas from 01/30 and another pseudomonas from the right foot from the bone culture , which is sensitive to Cipro, sensitive to imipenem, sensitive to Maxipime. THE PATIENT IS ALLERGIC TO OXYCODONE AND STATINS and ASPARTAME. As far as the pathology is concerned, the patient's patholo gy from the shows acute osteomyelitis involving the bone at the resection margin, which would idalia n that the patient needs to be pretreated as an osteomyelitis. ASSESSMENT AND PLAN: A 71-year-old female with history of peripheral artery disease, coronary artery disease, hypertension, dyslipidemia, diabetes, coronary artery disease, status post amputation of th e right fifth toe, postop day #7, with pseudomonas, on meropenem day #8. Operating room bone culture has pseudomonas and pathology is consistent with the margins having osteomyelitis. Will need 4-6 we eks of antibiotics for osteomyelitis with pseudomonas. Currently, the patient is on meropenem and we will continue following with you. Should have a CBC, SMA-7, SMA-18, sed rate, C-reactive protein on ce weekly. Intravenous antibiotics, meropenem 4-6 weeks. Santino Johnson MD cc: 350 TT: 02/05/2017 15:17:24 Confirmation # [id number] Dictation # [id number] sn
[2017-02-06] MEDS: Enoxaparin 40 mg Syringe SC SCH (06:13)
[2017-02-06] MEDS: Meropenem 1g/NS 100mL IVPB 100 ML IVPB SCH ×3 (06:14→22:15)
[2017-02-06] MEDS: Insulin Reg-MEDIUM-Coverage SC SCH ×4 (06:29→22:14)
[2017-02-06] MEDS: Insulin Detemir 100 units/ml Vial (Levemir) SC SCH ×2 (08:01→22:14)
--- NOTE | 2017-02-06 08:10 | PN ---
DATE: 02/06/2017 SUBJECTIVE: The patient has no complaints of any chest pain, no shortness of breath, no headaches. She says she is doing well with physical therapy. PHYSICAL EXAMINATION: VITAL SIGNS: Temperature is 98.5, pulse of 59, blood pressure 162/64, respirations 14, O2 saturation 97%. GENERAL: The patient comfortable, in no acute distress. HEENT: Anicteric sclerae. Moist mucosa. NECK: No JVD or adenopathy. CARDIAC: S1/S2. No murmurs. No rubs. Regular. RESPIRATORY: Clear to auscultation bilaterally. No wheezes, rales, or rhonchi. Good air entry. ABDOMEN: Bowel sounds are positive, soft, nontender, and nondistended. EXTREMITIES: No edema. Has 1+ pulses. ASSESSMENT: 1. Status post amputation of the right fifth toe secondary to osteomyelitis. 2. Right fifth toe osteomyelitis. 3. Peripheral arterial disease with left leg bypass. 4. Dyslipidemia. 5. Diabetes, type 2. 6. Hypertension. PLAN: The patient is currently comfortable. She is postop day #8 from her procedure with the amputa tion. She is continuing with meropenem day #9. She is going to need 4-6 weeks of antibiotics for os teomyelitis with pseudomonas. She will most likely need to go to subacute rehabilitation. Jose Mckeon MD cc: [id number] TT: 02/06/2017 08:10:05 Confirmation # [id number] Dictation # [id number] nv
[2017-02-06] MEDS: ZOCOR 20 MG PO SCH (09:26)
--- NOTE | 2017-02-06 11:04 | PN ---
DATE: 02/06/2017 TIME OF PROGRESS NOTE: 0700 hours. LOCATION: TCU room 319, bed 1. SUBJECTIVE: The patient is in TCU now for the 3rd day. She is 7 days postop amputation of the right 5th toe for a nonhealing diabetic ulcer and osteomyelitis in a diabetic patient with severe neuropat hy and severe PAD. She is out of bed, ambulating with cane or walker assistance safely, undergoing p hysical therapy. She is walking in postoperative shoes. She complains of no severe pain. She has c ontinuous pain vis-a-vis her diabetic neuropathy, but it is improved relative to the preamputation st atus. She reports no significant constitutional symptoms. OBJECTIVE: She is alert and oriented x 3, in bed comfortably. VITAL SIGNS: Stable. In no acute distress. The right foot dressing is removed. She has no edema, no cellulitis, no lymphangitis. The calf is n ontender and supple. There is no forefoot edema. There is less than 1.5 cm of local erythema about the incision, without any weeping, without any dehiscence, and without any moisture or discharge. Her postoperative x-rays reveal a 5th toe that was removed at the TMT joint. There is no evidence of bony breakdown or osteomyelitis evidence in any other bones of the remaining right foot. LABORATORY DATA: Her most recent WBC is 6.4. Her most recent differential is still shifted, and ESR is still high, but the most recent seen in the computer is from the preoperative testing before ampu tation. Her most recent glucose this morning was 189. The intraoperative wound and bone cultures we re obtained. They grew out a light growth of Pseudomonas aeruginosa, and light growth of Stenotropho monas maltophilia. The latter appears to have sensitivity to Septra; the former report shows no sens itivity. ASSESSMENT AND PLAN: Postop 1 week amputation of the right 5th toe with a healing wound. No dehisce nce, discharge, or signs of any infection. Postop x-rays are negative, and the patient is in a reduc ed level of discomfort, most notably from the coexisting diabetes neuropathy. She remains on IV anti biotic per infectious disease, and the patient is anxious for discharge home. She is ambulating well with her physical therapy and rehab today. I will order a new CBC with differential and a new sed rate, and I will discuss later today with Dr. Mckeon and Dr. Johnson potential discharge planning for possibly going out tomorrow or Friday morning. Mayank Watkins DPM cc: [phone] TT: 02/06/2017 11:03:34 Confirmation # [id number] Dictation # [id number] jn
[2017-02-06] MEDS: Morphine 15 mg Immediate Release Tab PO PRN ×2 (11:44→18:21)
[2017-02-06 13:23] LABS: ADD MANUAL DIFF? NO
[2017-02-06 13:28] LABS: BASO # 0.01 K/mm3 (0.0-2.0); BASO % 0.1 % (0.0-3.0); EOS # 0.1 (0.0-0.7); EOS % 1.8 % (1.5-5.0); GRAN # 4.43 (1.4-6.5); HEMATOCRIT 32.3 % (36.0-48.0); LYMPH # 1.7 (1.2-3.4); LYMPH % 25.3 % (22.0-35.0); MEAN CORPUSCULAR HGB CONC 33.7 g/dl (31.0-37.0); MONO # 0.5 (0.1-0.6); MONO % 7.8 % (1.0-6.0); PLATELET COUNT 193 10^3/uL (120.0-450.0); RED CELL DISTRIBUTION WIDTH 12.9 % (11.5-14.5); WHITE BLOOD COUNT 6.8 10^3/ul (4.5-11.0)
[2017-02-06 14:36] LABS: ERYTHROCYTE SEDIMENTATION RATE 63 mm/hr (0.0-20.0)
--- NOTE | 2017-02-06 14:48 | PN ---
DATE: 02/06/2017 The patient is in bed, seen earlier this morning in room 319. I had a long discussion about her path ology report. She understands and she is agreeable to receiving antibiotics. PHYSICAL EXAMINATION: VITAL SIGNS: Temperature is 98, blood pressure is 150/50, respiratory rate of 16. HEENT: Unremarkable. NECK: Supple. LUNGS: Have decreased breath sounds. HEART: Normal S1, S2. ABDOMEN: Soft, nontender. LABORATORY DATA: Reveals a white count of 6.8, hemoglobin of 10, platelets of 193. Dr. Mayank Mckee's note from today is noted. Dr. Mckeon's note is reviewed, and discussed the case w ith Dr. Mckeon at length. Review of the orders, the patient is on meropenem. Review of the microbiology, the patient's patholo gy from the bone is pseudomonas. It is sensitive to Cipro. ASSESSMENT AND PLAN: This is a 71-year-old female with a history of peripheral artery disease, coron sussy artery disease, hypertension, dyslipidemia, diabetes, status post amputation of the right fifth t oe, postop day #7 with pseudomonas, sensitive to Cipro, currently on meropenem day #9. However, her cultures is pseudomonas in the pathology, is consistent with the margins having osteomyelitis. Will need 4-6 weeks of antibiotics for osteomyelitis and some of that may be able to use p.o. Cipro. Revi ew of the EKG from the acute care reveals a QTC of 423, which is within acceptable range for use of q uinolones. Will follow with you. Santino Johnson MD cc: [phone] TT: 02/06/2017 14:47:31 Confirmation # [id number] Dictation # [id number] jaimie
--- NOTE | 2017-02-07 01:03 | PN ---
DATE: 02/06/2017 ADDENDUM TIME: 8:00 p.m. LOCATION: The patient is room 319, bed 1. SUBJECTIVE: The patient is alert and oriented x 3 and conversational in bed comfortably, no complain ts. The dressing is dry and intact. OBJECTIVE: Vital signs are stable, and the wound remains clean and dry with minimal erythema, no dis charge, and tenderness consistent with diabetic neuropathy. As mentioned before, the postoperative x -rays appear clean. No evidence of additional osteomyelitis. The recent laboratory testing reports an ESR taken today to remain high at 63, white count is 6.8, an d there still is 7.8 monocytes. IMPRESSION: One week postoperative amputation of the right fifth toe for osteomyelitis and diabetic ulceration in a diabetic peripheral artery disease patient. PLAN: The wound appears to be healing clinically well. This afternoon, I had a discussion with Dr. Johnson of infectious disease, who felt that based on the path report we cannot preclude the possi bility of some osteomyelitis remaining in the right foot. In discussion with the pathologist to go o galindo the report, and she noted that she took the specimens and slides of the most proximal aspect of t he proximal phalanx, and noted that there was still inflammation in that bony tissue. So although th e toe was disarticulated, the entire toe had osteomyelitis, and so she cannot preclude the presence o f some osteomyelitis in the metatarsal head, although clinically there was none. I discussed the fin dings with the patient and family, who felt that given the PAD status of the foot and trying to avoid the need for any additional surgical intervention, that they would prefer to go subacute for additio nal weeks of IV antibiotic, just to ensure no spread to the osteomyelitis, and I agree with their dec ision. I notified Dr. Johnson and Dr. Mckeon that we are all in agreement on the discharge plan , and the patient will be followed by Dr. Mckeon while at [facility]. There will be no need fo r wound care, as there is no open wound at this time, just dry gauze to keep the surgical site dry, a nd the patient will follow up in my office for ultimate suture removal after completion of her regime n at the subacute. Mayank Watkins DPM cc: [phone] TT: 02/07/2017 01:02:40 Confirmation # [id number] Dictation # [id number] vn
[2017-02-07] MEDS: Morphine 15 mg Immediate Release Tab PO PRN ×4 (06:16→21:29)
[2017-02-07] MEDS: Enoxaparin 40 mg Syringe SC SCH (06:17)
[2017-02-07] MEDS: Meropenem 1g/NS 100mL IVPB 100 ML IVPB SCH ×3 (06:17→21:28)
[2017-02-07] MEDS: Insulin Detemir 100 units/ml Vial (Levemir) SC SCH ×2 (07:02→21:46)
[2017-02-07] MEDS: Insulin Reg-MEDIUM-Coverage SC SCH ×4 (07:03→21:45)
[2017-02-07] MEDS: ZOCOR 20 MG PO SCH (09:34)
--- NOTE | 2017-02-07 10:06 | PN ---
DATE: 02/07/2017 The patient is in bed, in no acute distress, nontoxic. PHYSICAL EXAMINATION: VITAL SIGNS: Temperature is 98, blood pressure is 140/70, respiratory rate of 16. HEENT: Unremarkable. NECK: Supple. LUNGS: Have decreased breath sounds. HEART: Normal S1, S2. ABDOMEN: Soft, nontender. LABORATORY EXAMINATION: Reveals a white count of 6.8, hemoglobin of 10, platelets of 193. Chemistri es are noted. Microbiology is noted. ASSESSMENT AND PLAN: A 71-year-old female with a history of peripheral artery disease, coronary joy ry disease, hypertension, dyslipidemia, diabetes mellitus, status post amputation of right fifth toe, postop day #8 with pseudomonas, which is sensitive to Cipro. Currently on meropenem day #10. The p atient's EKG shows a QTc of 423. The pathology report shows the margins consistent with osteomyeliti s. Will need 4-6 weeks of intravenous antibiotics and may use Cipro p.o. to complete the antibiotics . Recommend a CBC, SMA-18, sed rate, C-reactive protein. The patient got a peripherally inserted ce ntral catheter line in the left arm yesterday and is scheduled for possible [facility]. We will follow closely with you. Santino Johnson MD cc: 350 TT: 02/07/2017 10:05:01 Confirmation # [id number] Dictation # [id number] en
--- NOTE | 2017-02-07 11:46 | CP.PCM.PN ---
Subjective - Date & Time of Evaluation Date of Evaluation: 02/07/17 Time of Evaluation: 11:43 - Subjective Subjective: 71 year old female patient with PMHx of DM, HLD, 8 days s/p Right foot 5th digit amputation was seen at bedside this morning. Patient was resting comfortably in bedside chair with no acute overnight distress. AAO x3. Patient states that she feels moderate pain to the surgical site only when touched. Dressing to Right foot remains clean, dry and intact. Patient denies of any N/V/ F/C or SOB today As per Dr. Mayank Watkins, patient does not need any woundcareing to Right foot. the surgical site appears well coapted with no sign of infection. Objective - Vital Signs/Intake and Output Vital Signs (last 24 hours): Temp Pulse Resp BP Pulse Ox 98 F 61 18 142/70 96 02/06/17 10:00 02/07/17 09:34 02/06/17 10:00 02/07/17 09:34 02/06/17 10:00 - Medications Medications: Current Medications Aspirin (Ecotrin) 81 mg PO 0800 [facility] PRN Reason: Protocol Last Admin: 02/07/17 07:52 Dose: 81 mg Bacitracin (Bacitracin) 1 ea TOP DAILY [facility] PRN Reason: Protocol Docusate Sodium (Colace) 100 mg PO BID [facility] PRN Reason: Protocol Last Admin: 02/07/17 09:34 Dose: 100 mg Enoxaparin Sodium (Lovenox) 40 mg SC 0600 [facility] PRN Reason: Protocol Last Admin: 02/07/17 06:17 Dose: 40 mg Ferrous Sulfate (Feosol) 324 mg PO 0800 [facility] Last Admin: 02/07/17 07:52 Dose: 324 mg Home Med (Home Med) 1 unit PO DAILY [facility] Last Admin: 02/07/17 09:34 Dose: 1 unit Meropenem 1g/NS 100mL IVPB (Meropenem 1g/Ns 100ml Ivpb) 100 mls @ 100 mls/hr IVPB Q8 [facility] PRN Reason: Protocol Stop: 02/13/17 22:01 Last Admin: 02/07/17 06:17 Dose: 100 mls/hr Insulin Detemir (Levemir) 10 unit SC ACBHS [facility] Last Admin: 02/07/17 07:02 Dose: 10 unit Insulin Human Regular (Humulin R Med) 0 units SC ACHS [facility] PRN Reason: Protocol Last Admin: 02/07/17 07:03 Dose: 3 units Losartan Potassium (Cozaar) 25 mg PO DAILY [facility] PRN Reason: Protocol Last Admin: 02/07/17 09:34 Dose: 25 mg Metoprolol Tartrate (Lopressor) 25 mg PO 0800,1700 [facility] PRN Reason: Protocol Last Admin: 02/07/17 07:52 Dose: 25 mg Morphine Sulfate (Morphine) 4 mg IVP Q4H PRN; Protocol PRN Reason: Pain, severe (8-10) Last Admin: 02/04/17 20:49 Dose: 4 mg Morphine Sulfate (Morphine Immediate Release Tab) 15 mg PO Q6 PRN; Protocol PRN Reason: Pain, moderate (4-7) Last Admin: 02/07/17 09:41 Dose: 15 mg Zolpidem Tartrate (Ambien) 5 mg PO HS PRN; Protocol PRN Reason: Insomnia Last Admin: 02/06/17 22:13 Dose: 5 mg - Labs Labs: 02/06/17 13:00 - Constitutional Appears: Well, Non-toxic, No Acute Distress - Extremities Exam Additional comments: Right lower extremity exam DERM: Incision site well coapted with all sutures intact. No dehiscence is noted. No maceration is noted to the incision site. No drainage is noted. No pus noted. No mal-odor noted. No signs consistent with infection is noted. VASC: Palpable DP noted bilaterally 1/4. Non-palpable PT noted bilaterally. REHEAT FURNACE OPERATOR less than 3 seconds noted to all digits. NEURO: Gross sensation intact - Neurological Exam Neurological Exam: Alert, Awake, Oriented x3 - Psychiatric Exam Psychiatric exam: Normal Affect, Normal Mood - Skin Skin Exam: Normal Color, Warm Assessment and Plan - Assessment and Plan (Free Text) Assessment: 71 year old female patient present 8 days s/p Right 5th digit amputation Plan: Patient was seen, evaluated, treated at bedside this AM labs and vitals reviewed discussed in detail with Dr. Watkins New dressings applied to right foot; DSD Podiatry will continue to follow in-house
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
[2017-02-08] MEDS: Bacitracin 500 Units/gm Oint Foilpak UD TOP SCH ×2 (00:36→10:08)
[2017-02-08] MEDS: Enoxaparin 40 mg Syringe SC SCH (05:54)
[2017-02-08] MEDS: Meropenem 1g/NS 100mL IVPB 100 ML IVPB SCH ×3 (05:55→21:26)
[2017-02-08] MEDS: Insulin Reg-MEDIUM-Coverage SC SCH ×4 (06:45→21:28)
[2017-02-08] MEDS: Insulin Detemir 100 units/ml Vial (Levemir) SC SCH ×2 (07:58→21:26)
[2017-02-08] MEDS: ZOCOR 20 MG PO SCH (10:10)
--- NOTE | 2017-02-08 11:05 | CP.PCM.PN ---
Subjective - Date & Time of Evaluation Date of Evaluation: 02/08/17 Time of Evaluation: 11:05 - Subjective Subjective: 71 year old female patient with PMHx of DM, HLD, 9 days s/p Right foot 5th digit amputation was seen at bedside this morning resting comfortably. She admits to moderate pain to the surgical site only when touched. Dressing to Right foot remains clean, dry and intact. Patient denies any n/v/f/c/sob/cp. Objective - Vital Signs/Intake and Output Vital Signs (last 24 hours): Temp Pulse Resp BP Pulse Ox 98.6 F 61 18 129/54 L 100 02/07/17 16:00 02/08/17 10:08 02/07/17 16:00 02/08/17 10:08 02/07/17 16:00 - Medications Medications: Current Medications Acetaminophen (Tylenol 325mg Tab) 650 mg PO Q4H PRN; Protocol PRN Reason: Pain, Mild (1-3) Aspirin (Ecotrin) 81 mg PO 0800 [facility] PRN Reason: Protocol Last Admin: 02/08/17 07:57 Dose: 81 mg Bacitracin (Bacitracin) 1 ea TOP DAILY [facility] PRN Reason: Protocol Last Admin: 02/08/17 10:08 Dose: 1 ea Docusate Sodium (Colace) 100 mg PO BID [facility] PRN Reason: Protocol Last Admin: 02/08/17 10:08 Dose: 100 mg Enoxaparin Sodium (Lovenox) 40 mg SC 0600 [facility] PRN Reason: Protocol Last Admin: 02/08/17 05:54 Dose: 40 mg Ferrous Sulfate (Feosol) 324 mg PO 0800 [facility] Last Admin: 02/08/17 07:57 Dose: 324 mg Home Med (Home Med) 1 unit PO DAILY [facility] Last Admin: 02/08/17 10:10 Dose: 1 unit Meropenem 1g/NS 100mL IVPB (Meropenem 1g/Ns 100ml Ivpb) 100 mls @ 100 mls/hr IVPB Q8 [facility] PRN Reason: Protocol Stop: 02/13/17 22:01 Last Admin: 02/08/17 05:55 Dose: 100 mls/hr Insulin Detemir (Levemir) 10 unit SC ACBHS [facility] Last Admin: 02/08/17 07:58 Dose: 10 unit Insulin Human Regular (Humulin R Med) 0 units SC ACHS [facility] PRN Reason: Protocol Last Admin: 02/08/17 06:45 Dose: Not Given Losartan Potassium (Cozaar) 25 mg PO DAILY [facility] PRN Reason: Protocol Last Admin: 02/08/17 10:08 Dose: 25 mg Metoprolol Tartrate (Lopressor) 25 mg PO 0800,1700 [facility] PRN Reason: Protocol Last Admin: 02/08/17 08:04 Dose: 25 mg Morphine Sulfate (Morphine) 4 mg IVP Q4H PRN; Protocol PRN Reason: Pain, severe (8-10) Last Admin: 02/04/17 20:49 Dose: 4 mg Morphine Sulfate (Morphine Immediate Release Tab) 15 mg PO Q6 PRN; Protocol PRN Reason: Pain, moderate (4-7) Last Admin: 02/07/17 21:29 Dose: 15 mg Zolpidem Tartrate (Ambien) 5 mg PO HS PRN; Protocol PRN Reason: Insomnia Last Admin: 02/07/17 21:27 Dose: 5 mg - Labs Labs: 02/06/17 13:00 - Constitutional Appears: Well, Non-toxic, No Acute Distress - Extremities Exam Additional comments: Right lower extremity focused exam: VASC: Palpable DP noted 1/4. Non-palpable PT noted. CFT less than 3 seconds noted to all remaining digits. DERM: Incision site well coapted with all sutures intact. No dehiscence is noted. No maceration is noted to the incision site. No drainage is noted. No pus noted. No malodor noted. No signs of acute infection. NEURO: Gross sensation intact - Neurological Exam Neurological Exam: Alert, Awake, Oriented x3 - Psychiatric Exam Psychiatric exam: Normal Affect, Normal Mood Assessment and Plan - Assessment and Plan (Free Text) Assessment: 71 year old female patient present 9 days s/p Right 5th digit amputation Plan: Patient was seen, evaluated Labs and vitals reviewed Discussed in detail with Dr. Watkins New dressings applied to right foot; [facility] will continue to follow in-house
[2017-02-08] MEDS: Morphine 15 mg Immediate Release Tab PO PRN ×2 (11:30→20:07)
--- NOTE | 2017-02-08 14:14 | PN ---
DATE: 02/08/2017 The patient is in bed in no acute distress, nontoxic. PHYSICAL EXAMINATION: VITAL SIGNS: The patient's temperature is 98, blood pressure is 120/50, respiratory rate of 16. HEENT: Unremarkable. NECK: Supple. LUNGS: Have decreased breath sounds. HEART: Normal S1, S2. ABDOMEN: Soft. EXTREMITIES: examination of lower extremities is noted. LABORATORY EXAMINATION: Reviewed. ASSESSMENT AND PLAN: This is a 71-year-old female with history of peripheral artery disease, coronar y artery disease, hypertension, dyslipidemia, diabetes mellitus, status post amputation of the right fifth toe, postoperative day #9 with pseudomonas sensitive to Cipro. Currently on meropenem day #11. EKG shows a QTC of 423. The pathology report showed the margins are consistent with osteomyelitis. Will need 4-6 weeks of antibiotics. May be able to switch to p.o. Cipro after initial intravenous antibiotics. Recommend a CBC, SMA-18, sed rate, and C-reactive protein once weekly. Review of the m edications reveals the patient is tolerating the meropenem for pseudomonas osteomyelitis, status post surgery. Santino Johnson MD cc: [phone] TT: 02/08/2017 14:13:39 Confirmation # [id number] Dictation # [id number] tn
--- NOTE | 2017-02-08 19:26 | PN ---
DATE: 02/08/2017 The patient is 71 years old, was seen and examined, doing well, lying in bed. Complained of some dis comfort in the foot at the surgical site. PHYSICAL EXAMINATION: VITAL SIGNS: She is afebrile, pulse 78, respirations 18, blood pressure . LUNGS: Bilateral fair airflow, no rhonchi or crackle. HEART: S1, S2 audible. ABDOMEN: Soft, nontender, no rebound, no guarding. NEUROLOGIC: She is awake and alert, communicative, able to move all extremities. LABORATORY: Blood sugar is 262; earlier it was 148. ASSESSMENT AND PLAN: 1. Status post right fifth toe amputation. The wound looks healthy. 2. Insulin-dependent diabetes. 3. Hypertension. 4. Severe peripheral vascular disease. 5. Pseudomonas wound infection sensitive to Cipro. 6. Surgical margin showing osteomyelitis. 7. Hyperlipidemia. PLAN: At this point is to transfer her to [facility] for further rehabilitation and so the plan is to give her antibiotics for 4-6 weeks. Currently the patient is on meropenem, but can be switched to Cipro as per ID to complete for a total of 6 weeks and at this point, there is no bed available in [facility]. Once a bed is available, she will be transferred to [facility], probably Friday. Nichelle Florez MD cc: [phone] TT: 02/08/2017 19:25:11 Confirmation # [id number] Dictation # [id number] dn
[2017-02-09] MEDS: Enoxaparin 40 mg Syringe SC SCH (05:56)
[2017-02-09] MEDS: Meropenem 1g/NS 100mL IVPB 100 ML IVPB SCH ×3 (05:58→21:08)
[2017-02-09] MEDS: Insulin Detemir 100 units/ml Vial (Levemir) SC SCH ×2 (07:19→21:43)
[2017-02-09] MEDS: Insulin Reg-MEDIUM-Coverage SC SCH ×4 (07:59→21:43)
[2017-02-09] MEDS: Morphine 15 mg Immediate Release Tab PO PRN ×3 (08:05→21:43)
[2017-02-09] MEDS: Bacitracin 500 Units/gm Oint Foilpak UD TOP SCH (10:18)
[2017-02-09] MEDS: ZOCOR 20 MG PO SCH (10:18)
--- NOTE | 2017-02-09 11:48 | PN ---
DATE: 02/09/2017 The patient is a 71-year-old, seen and examined, lying in bed, seems to be comfortable, not in any ac adenike distress, eating and tolerating. Complained of constipation. PHYSICAL EXAMINATION: VITAL SIGNS: She is afebrile, pulse 72, respirations 16, blood pressure 146/53. LUNGS: Bilateral fair airflow, no rhonchi or crackle. HEART: S1, S2 audible. No murmur. ABDOMEN: Soft, nontender, no rebound, no guarding. NEUROLOGIC: The patient is awake and alert, communicative. EXTREMITIES: Bilateral legs, no edema. LABORATORY EXAMINATION: Blood sugar is 199. ASSESSMENT: 1. Complained of constipation. 2. Status post right fifth toe amputation. 3. Insulin-dependent diabetes. 4. Hyperlipidemia. 5. Osteomyelitis. 6. Pseudomonas wound infection. 7. Severe peripheral vascular disease. PLAN: I will give a dose of lactulose. Discontinue Colace. Continue her on current antibiotic as r ecommended by ID that is meropenem. Awaiting transfer to [facility]. Once she gets better, she will be transferred to [facility] to complete her course of antibiotic and physical therapy. Nichelle Florez MD cc: [phone] TT: 02/09/2017 11:48:17 Confirmation # [id number] Dictation # [id number]
--- NOTE | 2017-02-09 16:07 | CP.PCM.PN ---
Subjective - Date & Time of Evaluation Date of Evaluation: 02/09/17 Time of Evaluation: 12:00 - Subjective Subjective: 71 year old female patient with PMHx of DM, HLD, 10 days s/p Right foot 5th digit amputation was seen at bedside this morning resting comfortably. She admits to moderate pain to the surgical site only when touched. Dressing to Right foot remains clean, dry and intact. Patient denies any n/v/f/c/sob/cp. Objective - Vital Signs/Intake and Output Vital Signs (last 24 hours): Temp Pulse Resp BP Pulse Ox 98.1 F 72 18 146/53 L 96 02/09/17 10:00 02/09/17 10:18 02/09/17 10:00 02/09/17 10:18 02/09/17 06:00 - Medications Medications: Current Medications Acetaminophen (Tylenol 325mg Tab) 650 mg PO Q4H PRN; Protocol PRN Reason: Pain, Mild (1-3) Aspirin (Ecotrin) 81 mg PO 0800 [facility] PRN Reason: Protocol Last Admin: 02/09/17 07:58 Dose: 81 mg Bacitracin (Bacitracin) 1 ea TOP DAILY [facility] PRN Reason: Protocol Last Admin: 02/09/17 10:18 Dose: 1 ea Enoxaparin Sodium (Lovenox) 40 mg SC 0600 [facility] PRN Reason: Protocol Last Admin: 02/09/17 05:56 Dose: 40 mg Ferrous Sulfate (Feosol) 324 mg PO 0800 [facility] Last Admin: 02/09/17 07:58 Dose: 324 mg Home Med (Home Med) 1 unit PO DAILY [facility] Last Admin: 02/09/17 10:18 Dose: 1 unit Meropenem 1g/NS 100mL IVPB (Meropenem 1g/Ns 100ml Ivpb) 100 mls @ 100 mls/hr IVPB Q8 [facility] PRN Reason: Protocol Stop: 02/13/17 22:01 Last Admin: 02/09/17 13:46 Dose: 100 mls/hr Insulin Detemir (Levemir) 10 unit SC ACBHS [facility] Last Admin: 02/09/17 07:19 Dose: 10 unit Insulin Human Regular (Humulin R Med) 0 units SC ACHS [facility] PRN Reason: Protocol Last Admin: 02/09/17 12:10 Dose: 5 units Lactulose (Enulose) 20 gm PO HS [facility] Losartan Potassium (Cozaar) 25 mg PO DAILY [facility] PRN Reason: Protocol Last Admin: 02/09/17 10:18 Dose: 25 mg Metoprolol Tartrate (Lopressor) 25 mg PO 0800,1700 [facility] PRN Reason: Protocol Last Admin: 02/09/17 08:00 Dose: 25 mg Morphine Sulfate (Morphine) 4 mg IVP Q4H PRN; Protocol PRN Reason: Pain, severe (8-10) Last Admin: 02/04/17 20:49 Dose: 4 mg Morphine Sulfate (Morphine Immediate Release Tab) 15 mg PO Q6 PRN; Protocol PRN Reason: Pain, moderate (4-7) Last Admin: 02/09/17 14:55 Dose: 15 mg Zolpidem Tartrate (Ambien) 5 mg PO HS PRN; Protocol PRN Reason: Insomnia Last Admin: 02/08/17 21:26 Dose: 5 mg - Labs Labs: 02/06/17 13:00 - Constitutional Appears: Well, Non-toxic, No Acute Distress - Extremities Exam Additional comments: Right lower extremity focused exam: VASC: Palpable DP pulse noted 1/4. Non-palpable PT pulse. CFT less than 3 seconds noted to all remaining digits. DERM: Incision site well coapted with all sutures intact. No dehiscence is noted. No maceration is noted to the incision site. No drainage is noted. No pus noted. No malodor noted. No signs of acute infection. NEURO: Gross sensation intact - Neurological Exam Neurological Exam: Alert, Awake, Oriented x3 - Psychiatric Exam Psychiatric exam: Normal Affect, Normal Mood Assessment and Plan - Assessment and Plan (Free Text) Assessment: 71 year old female patient present 10 days s/p Right 5th digit amputation Plan: Patient was examined evaluated Labs and vitals reviewed Discussed in detail with Dr. Watkins New dressings applied to right foot; [facility] will continue to follow in-house
--- NOTE | 2017-02-09 16:45 | PN ---
DATE: 02/09/2017 The patient is in bed in no acute distress, nontoxic, no fevers and chills. PHYSICAL EXAMINATION: VITAL SIGNS: Temperature is 98, blood pressure is 140/50, respiratory rate of 18, heart rate of 72. HEENT: Unremarkable. NECK: Supple. LUNGS: Have decreased breath sounds. HEART: Normal S1, S2. ABDOMEN: Soft, nontender. LABORATORY DATA: Reveals a white count of 6.8, hemoglobin of 10 and platelets of 193. Chemistries a re noted. Review of the orders reveals the patient to be on meropenem. ASSESSMENT AND PLAN: This is a 71-year-old female with a history of peripheral arterial disease, cor onary artery disease, hypertension, dyslipidemia, diabetes mellitus, status post amputation of right fifth toe, postoperative day #10 with pseudomonas, which is sensitive to Cipro, currently on meropene m day #12. The patient's EKG showed a QTC of 423. The pathology report from the toe showed the sondra ins to be consistent with osteomyelitis, and will need 4-6 weeks of meropenem. May be able to switch to p.o. Cipro at a later time. Recommend a CBC, SMA-18, SED rate, C-reactive protein and clinically following the patient's foot will follow with you. The case was discussed with PMJimi and Dr. Mayank holguin. Santino Johnson MD cc: [phone] TT: 02/09/2017 16:44:53 Confirmation # [id number] Dictation # [id number] dn
[2017-02-10] MEDS: Meropenem 1g/NS 100mL IVPB 100 ML IVPB SCH ×3 (05:33→21:45)
[2017-02-10] MEDS: Enoxaparin 40 mg Syringe SC SCH (05:33)
[2017-02-10] MEDS: Insulin Reg-MEDIUM-Coverage SC SCH ×4 (06:49→21:46)
[2017-02-10] MEDS: Insulin Detemir 100 units/ml Vial (Levemir) SC SCH ×2 (06:50→21:47)
[2017-02-10] MEDS: Morphine 15 mg Immediate Release Tab PO PRN ×3 (08:19→21:09)
[2017-02-10] MEDS: Bacitracin 500 Units/gm Oint Foilpak UD TOP SCH (10:08)
[2017-02-10] MEDS: ZOCOR 20 MG PO SCH (10:10)
--- NOTE | 2017-02-10 16:52 | CP.PCM.PN ---
Subjective - Date & Time of Evaluation Date of Evaluation: 02/10/17 Time of Evaluation: 09:45 - Subjective Subjective: Patient is comfortable in bed, not in distress, no fevers. Objective - Vital Signs/Intake and Output Vital Signs (last 24 hours): Temp Pulse Resp BP Pulse Ox 98.2 F 56 L 14 137/60 97 02/10/17 16:00 02/10/17 16:00 02/10/17 16:00 02/10/17 16:00 02/10/17 16:00 Intake and Output: 02/10/17 02/10/17 06:59 18:59 Intake Total 420 Balance 420 - Medications Medications: Current Medications Acetaminophen (Tylenol 325mg Tab) 650 mg PO Q4H PRN; Protocol PRN Reason: Pain, Mild (1-3) Aspirin (Ecotrin) 81 mg PO 0800 [facility] PRN Reason: Protocol Last Admin: 02/10/17 08:14 Dose: 81 mg Bacitracin (Bacitracin) 1 ea TOP DAILY [facility] PRN Reason: Protocol Last Admin: 02/10/17 10:08 Dose: 1 ea Enoxaparin Sodium (Lovenox) 40 mg SC 0600 [facility] PRN Reason: Protocol Last Admin: 02/10/17 05:33 Dose: 40 mg Ferrous Sulfate (Feosol) 324 mg PO 0800 [facility] Last Admin: 02/10/17 08:14 Dose: 324 mg Home Med (Home Med) 1 unit PO DAILY [facility] Last Admin: 02/10/17 10:10 Dose: 1 unit Meropenem 1g/NS 100mL IVPB (Meropenem 1g/Ns 100ml Ivpb) 100 mls @ 100 mls/hr IVPB Q8 [facility] PRN Reason: Protocol Stop: 02/13/17 22:01 Last Admin: 02/10/17 13:12 Dose: 100 mls/hr Insulin Detemir (Levemir) 10 unit SC ACBHS [facility] Last Admin: 02/10/17 06:50 Dose: 10 unit Insulin Human Regular (Humulin R Med) 0 units SC ACHS [facility] PRN Reason: Protocol Last Admin: 02/10/17 13:11 Dose: 3 units Lactulose (Enulose) 20 gm PO HS [facility] Last Admin: 02/09/17 21:07 Dose: 20 gm Losartan Potassium (Cozaar) 25 mg PO DAILY [facility] PRN Reason: Protocol Last Admin: 02/10/17 10:08 Dose: 25 mg Metoprolol Tartrate (Lopressor) 25 mg PO 0800,1700 [facility] PRN Reason: Protocol Last Admin: 02/10/17 08:14 Dose: 25 mg Morphine Sulfate (Morphine) 4 mg IVP Q4H PRN; Protocol PRN Reason: Pain, severe (8-10) Last Admin: 02/04/17 20:49 Dose: 4 mg Morphine Sulfate (Morphine Immediate Release Tab) 15 mg PO Q6 PRN; Protocol PRN Reason: Pain, moderate (4-7) Last Admin: 02/10/17 16:11 Dose: 15 mg Zolpidem Tartrate (Ambien) 5 mg PO HS PRN; Protocol PRN Reason: Insomnia Last Admin: 02/09/17 21:07 Dose: 5 mg - Labs Labs: 02/06/17 13:00 - Constitutional Appears: Non-toxic, No Acute Distress - Head Exam Head Exam: NORMAL INSPECTION - ENT Exam ENT Exam: Mucous Membranes Moist - Neck Exam Neck Exam: absent: Lymphadenopathy, Meningismus - Respiratory Exam Respiratory Exam: Decreased Breath Sounds - Cardiovascular Exam Cardiovascular Exam: +S1, +S2 - GI/Abdominal Exam GI & Abdominal Exam: Soft. absent: Tenderness Assessment and Plan - Assessment and Plan (Free Text) Plan: Assessment Right 5th toe osteomyelitis in a patient with probable peripheral vascular disease S/P surgery POD #12, growing Pseudomonas, with margins still showing osteomyelitis DM dyslipidemia S/P left TMA left lower extremity bypass for peripheral arterial disease S/P appendectomy Plan continue Merrem to complete 4-6 weeks of antibiotics with weekly ESR, CRP, CBC, CMP Will continue to follow clinically
--- NOTE | 2017-02-10 20:25 | PN ---
DATE: 02/10/2017 SUBJECTIVE: The patient is a 71-year-old, seen and examined, lying in bed, seems to be comfortable, not in any distress, eating and tolerating, ambulating. PHYSICAL EXAMINATION: VITAL SIGNS: She is afebrile, pulse 56, respirations 14, blood pressure 130/60. LUNGS: Bilateral fair airflow, no rhonchi or crackle. HEART: S1, S2 audible. No murmur. ABDOMEN: Soft, nontender, no rebound, no guarding. NEUROLOGIC: She is awake and alert, communicative. EXTREMITIES: Bilateral leg, no edema or ulcer. Her right foot is in a dressing and being cared by p odiatry. ASSESSMENT AND PLAN: 1. Status post right fifth toe amputation, margins consistent with osteomyelitis. 2. Insulin-dependent diabetes. 3. Hyperlipidemia. 4. Pseudomonas wound infection. 5. Severe peripheral vascular disease. 6. Constipation seems to be resolving. PLAN: The patient is waiting to be transferred to [place]. As soon as bed is available, the patient will be transferred. For now she is on meropenem that she has to take for 4-6 weeks. If the patien t is here in a.m. I will follow that up otherwise she will be transferred to [facility] bed [facility]. Nichelle Florez MD cc: [phone] TT: 02/10/2017 20:25:05 Confirmation # [id number] Dictation # [id number]
[2017-02-11] MEDS: Enoxaparin 40 mg Syringe SC SCH (05:14)
[2017-02-11] MEDS: Meropenem 1g/NS 100mL IVPB 100 ML IVPB SCH (05:14)
[2017-02-11] MEDS: Insulin Detemir 100 units/ml Vial (Levemir) SC SCH (06:47)
[2017-02-11] MEDS: Insulin Reg-MEDIUM-Coverage SC SCH ×2 (06:47→12:20)
[2017-02-11] MEDS: Bacitracin 500 Units/gm Oint Foilpak UD TOP SCH (10:33)
[2017-02-11] MEDS: ZOCOR 20 MG PO SCH (10:38)
[2017-02-11 10:41] VITALS: BP 153/61; PULSE 54
[2017-02-11 13:10] VITALS: RESP 18; TEMP 97.9; O2SAT 99
--- NOTE | 2017-02-11 19:34 | DS ---
The patient is a 71-year-old, who was admitted because of right foot pain. Stated it has been hurtin g her, fifth toe, and she was unable to walk on that, so she came to Emergency Room for evaluation. She had fifth toe amputation done. Her pathology margins came out positive for osteomyelitis, so she was initially admitted for rehabilitation in TCU where she received antibiotic. Once pathology repo rt was received, it was decided to give her antibiotics for 4-6 weeks, so she is being discharged to ay to [facility] to complete her course of antibiotic. PHYSICAL EXAMINATION: GENERAL: She is awake and alert, communicative. VITAL SIGNS: She is afebrile. Pulse 54, respirations 20, blood pressure 153/61. LUNGS: Bilateral fair airflow, no rhonchi or crackle. HEART: S1, S2 audible. ABDOMEN: Soft, nontender, no rebound, no guarding. NEUROLOGIC: The patient is awake and alert, communicative, able to ambulate. ASSESSMENT: 1. Severe peripheral vascular disease. 2. Status post right fifth toe amputation and biopsy margin consistent with osteomyelitis. 3. Insulin-dependent diabetes. 4. Hyperlipidemia. 5. Pseudomonas wound infection. 6. Peripheral vascular disease. PLAN: The patient is being discharged to [place] where she will complete her course of antibiotics. She will receive meropenem for a total of 6 weeks as recommended by ID, where Dr. Jose Mckeon wi ll follow up the patient. Nichelle Florez MD cc: [phone] TT: 02/11/2017 19:34:34 jaimie
--- NOTE | 2017-02-12 21:46 | PN ---
DATE: 02/11/2017 TIME: 0700 hours LOCATION: TCU room 319, bed 1. SUBJECTIVE: The patient is sleeping in bed. Upon being awoken, she is alert and oriented x 3, with vital signs stable. She complains of no pain, and the dressing had been changed yesterday by the res ident. She continues to receive IV medication per infectious disease, and has been anticipating desir sfer from the TCU to the [facility] for 3-4 more weeks of IV antibiotic, under the direction of Jimi Mckeon. OBJECTIVE: The patient's vital signs are stable. She is in no acute distress. The dressings are re moved from the right foot. The surgical site is inspected. The 3 sutures remain intact. There is n o evidence of dehiscence. There is no fluid discharge. There is no local erythema. There is no loc al edema. The right foot remains sensitive to palpation and range of motion to the extent it has for several years now with her diabetic neuropathy. The ESR taken last week remains high. Her white counts are normal, and the postoperative x-rays are negative for any osteolytic changes on the remaining bone. The margins of the amputation in patholog y still indicates inflammation in the most proximal aspect of the amputated toe. ASSESSMENT AND PLAN: The patient is approximately 2 weeks post-amputation of the right 5th toe for a diabetic foot ulcer and osteomyelitis. She apparently is healing well given her existing PAD status and diabetes. The unclear margins of th e amputation site indicated the need for an additional 3-4 weeks of IV antibiotic, and dry sterile dr essings will be applied to the right foot, and there is no need for wound care. There is no need for wound applications other than a dry sterile gauze changed once daily to keep the surgical site dry a nd non-macerated. We anticipate the patient finally being transferred to [facility] sometime tomorrow, and we will be av ailable for followup evaluation by transfer via [facility] approximately a week to 10 days after trans damian for possible suture removal and wound inspection. Otherwise, will follow up with the patient aft er completion of her course of IV antibiotic. Mayank Watkins DPM cc: [phone] TT: 02/12/2017 21:45:57 Confirmation # [id number] Dictation # [id number] jn
== END 2017-02-11 14:19 | DRG 638 ==
LOC: TRCU 15:38
PROVIDERS: ADMIT Internal Medicine Nephrology; ATTEND Internal Medicine Nephrology
PROC: F07Z9FZ Gait Training/Functional Ambulation Treatment using Assistive, Adaptive, Supportive or Protective Equipment (ICD-10-PCS; principal; 2017-02-04)
PROC: F08Z4FZ Home Management Treatment using Assistive, Adaptive, Supportive or Protective Equipment (ICD-10-PCS; 2017-02-04)
DX: E11.69 Type 2 diabetes mellitus with other specified complication (principal); M86.171 Other acute osteomyelitis, right ankle and foot; Z79.2 Long term (current) use of antibiotics; E11.51 Type 2 diabetes mellitus with diabetic peripheral angiopathy without gangrene; E11.40 Type 2 diabetes mellitus with diabetic neuropathy, unspecified; E11.621 Type 2 diabetes mellitus with foot ulcer; E78.5 Hyperlipidemia, unspecified; I25.10 Atherosclerotic heart disease of native coronary artery without angina pectoris; I10 Essential (primary) hypertension; K59.00 Constipation, unspecified; L97.519 Non-pressure chronic ulcer of other part of right foot with unspecified severity; B96.5 Pseudomonas (aeruginosa) (mallei) (pseudomallei) as the cause of diseases classified elsewhere; Z89.421 Acquired absence of other right toe(s); Z79.4 Long term (current) use of insulin; Z88.5 Allergy status to narcotic agent; Z90.49 Acquired absence of other specified parts of digestive tract; Z87.891 Personal history of nicotine dependence

== ENCOUNTER 2017-02-06 13:29 | Day surgery (SDC) | payer MEDICARE ==
[2017-02-06 13:43] VITALS: O2SAT 96
[2017-02-06] MEDS ORDERED: Lidocaine 2% Inj (20ml) ONE (15:14)
[2017-02-06 17:23] VITALS: BP 172/50; PULSE 56; RESP 20; TEMP 97.9
--- NOTE | 2017-02-06 19:28 | VASCULAR ---
PROCEDURE: Ultrasound and fluoroscopically placed left upper extremity PICC line. HISTORY: Right 5th toe gangrene. Long-term IV antibiotics. Needs PICC line. PHYSICIAN(S): Mayank Ramirez MD. TECHNIQUE: The relative risks and indications of the procedure were explained to the patient and consent obtained. The patient was placed supine on the arteriogram table and the left arm prepped and draped in the usual sterile fashion. A tourniquet was applied to the left axilla. 1% Xylocaine was used to anesthetize the skin and soft tissues at the puncture site above the elbow. The left brachial vein was punctured under direct ultrasound guidance with a micropuncture set. A 0.018 guidewire was advanced centrally and used to measure the length to the SVC/RA junction. A 5 Greek single-lumen PICC line 36 cm long was advanced to the SVC/RA junction. The catheter was flushed and secured. The patient tolerated the procedure well. IMPRESSION: 1. Ultrasound and fluoroscopically placed left upper extremity PICC line. A 5 Greek single-lumen PICC line 36 cm long was advanced to the SVC/RA junction.
== END 2017-02-06 17:50 ==
LOC: OPSURG 13:29
PROVIDERS: ATTEND Radiology Vascular & Interventional Radiology
DX: I96 Gangrene, not elsewhere classified (principal); Z79.2 Long term (current) use of antibiotics
CPT/HCPCS: 36569; 76937; 77001; C1751; J1644

== ENCOUNTER 2017-10-08 07:19 | Day surgery (SDC) | payer MEDICARE ==
[2017-10-08] MEDS ORDERED: Propofol 10 mg/ml Inj (20 ML) ONE (09:01)
[2017-10-08] MEDS ORDERED: Sodium Chloride 0.9% 1,000 ML IV SCH (10:15)
[2017-10-08 12:59] VITALS: BP 146/60; PULSE 67; RESP 22; TEMP 97.8; O2SAT 98
== END 2017-10-08 12:11 | disposition home or self-care (01) ==
LOC: ENDO 07:19
PROVIDERS: ATTEND Specialist
DX: Z12.11 Encounter for screening for malignant neoplasm of colon (principal); K63.5 Polyp of colon; K64.8 Other hemorrhoids
CPT/HCPCS: 45380; 82948; 88305; J2704; J7040 ×2

== ENCOUNTER 2018-09-21 09:43 | Emergency (ER) | payer MEDICARE ==
[2018-09-21 10:03] VITALS: BMI 23.8
[2018-09-21 10:07] VITALS: TEMP 98.6
--- NOTE | 2018-09-21 10:46 | ED PDOC ---
Arrival/HPI - General Chief Complaint: Upper Extremity Problem/Injury Time Seen by Provider: 09/21/18 10:33 Historian: Patient - History of Present Illness Narrative History of Present Illness (Text): 09/21/18 10:50 A 72 year old female, whose past medical history includes diabetes type 2, presents to the emergency department complaining of chest pain and left shoulder pain radiating down arm for the past week. Patient states here in the ER currently does not experience chest pain, and the shoulder pain is not as strong as before as per patient. States she has called Dr. Morales's head refrigerating engineer earlier, and was told to go to the ER to be evaluated. Patient denies any other complaints at this time. Also, patient mentions she had a cardiac stent placed [address] Morales. Tube Man: Dr. Morales Past Medical History - Provider Review Nursing Documentation Reviewed: Yes - Past History Past History: Non-Contributing - Infectious Disease Hx of Infectious Diseases: None - Tetanus Immunization Tetanus Immunization: Unknown - Reproductive Menopause: No - Cardiac Hx Pacemaker: No - Pulmonary Hx Chronic Obstructive Pulmonary Disease (COPD): No - Neurological Hx Paralysis: No - HEENT Hx HEENT Disorder: Yes Hx Blind: No Hx Cataracts: Yes (Removed) Hx Deafness: No Hx Difficulty Chewing: No Hx Epistaxis: No Hx Glaucoma: No Hx Macular Degeneration: No - Renal Hx Renal Failure: No - Endocrine/Metabolic Hx Diabetes Mellitus Type 2: Yes - Hematological/Oncological Hx Blood Transfusions: Yes (10/06/15) Hx Blood Transfusion Reaction: No - Integumentary Hx Dermatological Disorder: No Hx Basal Cell Carcinoma: No Hx Eczema: No Hx Melanoma: No Hx Psoriasis: No Hx Squamous Cell Carcinoma: No - Musculoskeletal/Rheumatological Hx Musculoskeletal Disorders: No - Gastrointestinal Hx Gastrointestinal Disorders: No Hx Colostomy: No Hx Crohn's Disease: No Hx Diverticulitis: No Hx Gall Bladder Disease: No Hx Gastroesophageal Reflux: No Hx Ileostomy: No Hx Liver Failure: No Hx Pancreatitis: No HX Swallowing Problems: No Other/Comment: chronic constipation - Genitourinary/Gynecological Hx Reproductive Disorders: No - Psychiatric Hx Emotional Abuse: No Hx Physical Abuse: No Hx Substance Use: No - Surgical History Hx Amputation: Yes (Partial Left foot) Hx Appendectomy: Yes - Anesthesia Hx Anesthesia Reactions: No Hx Malignant Hyperthermia: No - Suicidal Assessment Feels Threatened In Home Enviroment: No Family/Social History - Physician Review Nursing Documentation Reviewed: Yes Family/Social History: No Known Family HX Smoking Status: Former Smoker Hx Alcohol Use: No Hx Substance Use: No Hx Substance Use Treatment: No Allergies/Home Meds Allergies/Adverse Reactions: Allergies aspartame Allergy (Mild, Verified 09/21/18 12:04) HEADACHE atorvastatin calcium [From Lipitor] Allergy (Verified 09/21/18 12:04) Pt gets 'hyper' oxycodone HCl [From Percocet] Allergy (Verified 09/21/18 12:04) SHORTNESS OF BREATH Equal Allergy (Uncoded 09/21/18 12:04) HEADACHE Home Medications: Home Meds Medication Instructions Recorded Confirmed Aspirin [Ecotrin] 81 mg PO DAILY 05/21/16 10/08/17 Losartan [Cozaar] 25 mg PO DAILY 05/21/16 10/08/17 Insulin Detemir [Levemir] 10 unit SC ACLD 08/29/17 10/02/17 Metformin HCl [Glucophage] 1,000 mg PO BID 08/29/17 10/08/17 Simvastatin [Zocor] 20 mg PO DAILY 08/29/17 10/08/17 Cholecalciferol (Vitamin D3) 2,000 unit PO DAILY 10/02/17 10/08/17 [Vitamin D3] Insulin Aspart, Recombinant 3 - 4 unit SC AC PRN 10/02/17 10/08/17 [Novolog] Multivit-Min/FA/Lycopen/Lutein 1 tab PO DAILY 10/02/17 10/08/17 [Centrum Silver Tablet] Review of Systems - Physician Review All systems were reviewed & negative as marked: Yes - Review of Systems Cardiovascular: Chest Pain (states feeling chest pain earlier today, currently here in the ER has no chest pain.) Musculoskeletal: Other (left shoulder pain, radiating down arm) Physical Exam - Physical Exam Narrative Physical Exam (Text): Gen: VS reviewed, alert, well developed, well nourished, nontoxic, mild distress. ENT: normal pharynx. Eye: EOMI, PERRL. Neck: no JVD, supple, no adenopathy. CV: regular rate, regular rhythm, no rubs, no murmur, no gallops, S1, S2, pulses equal and strong. Pulm: no distress, clear to auscultation, no wheeze, no rhonchi, breath sounds equal, no rales. Abd: soft, nontender, no guarding, no rebound, no rigidity, normal bowel sounds. Ext: no edema. pain at left shoulder with AB duction, internal rotation, positive impingement. Skin: good color, no rash, no cyanosis. Psych: responds appropriately to questions, normal affect. Neuro: oriented x 3, CN2-12 intact grossly, motor intact, sensation intact. Vital Signs Reviewed: Yes Vital Signs Temp Pulse Resp BP Pulse Ox 09/21/18 10:04 98.6 F 86 18 165/64 H 98 Temperature: Afebrile Blood Pressure: Hypertensive Pulse: Regular Respiratory Rate: Normal Appearance: Positive for: Well-Appearing, Non-Toxic, Comfortable Pain Distress: None Mental Status: Positive for: Alert and Oriented X 3 Medical Decision Making ED Course and Treatment: 09/21/18 10:55 Impression: 72 year old female with left shoulder pain. Plan: -- EKG -- Chest X-ray -- Labs -- Cervical Spinal X-Ray -- Left Shoulder X-Ray -- Reassess and disposition Progress Notes: 09/21/18 11:[address] morales, patient's electronics research engineer, case discussed in detail and recommends serial troponin. if workup negative patient can be discharged with close follow up in the office tomorrow 09/21/18 14:55 patient feels well and ready to go home. patient will follow up with her electronics research engineer. patient also instructed to follow up with ortho for the left shoulder pain. - Lab Interpretations I have reviewed the lab results: Yes - RAD Interpretation Narrative RAD Interpretations (Text): 09/21/18 13:59 cxr my read: no focal infiltrate, no ptx, no wide mediastinum xr shoulder: calcific tendonitis cervical spine xr: no overt fx Radiology Orders: 09/21/18 10:45 CERVICAL SPINE >18YR W/OBLIQUE [RAD] Stat SHOULDER LEFT [RAD] Stat 09/21/18 10:46 CXR [CHEST TWO VIEWS (PA/LAT)] [RAD] Stat Independent Distributor: ED Physician - EKG Interpretation EKG Interpretation (Text): 09/21/18 14:09 1014: sinus rhythm at 79 bpm, nml qrs, nml axis, no acute sttw abn Interpreted by ED Physician: Yes - Scribe Statement The provider has reviewed the documentation as recorded by the Leny Burton Provider Scribe Attestation: All medical record entries made by the Hollieibnatalie were at my direction and personally dictated by me. I have reviewed the chart and agree that the record accurately reflects my personal performance of the history, physical exam, medical decision making, and the department course for this patient. I have also personally directed, reviewed, and agree with the discharge instructions and disposition. Disposition/Present on Arrival - Present on Arrival Any Indicators Present on Arrival: No History of DVT/PE: No History of Uncontrolled Diabetes: No Urinary Catheter: No History of Decub. Ulcer: No History Surgical Site Infection Following: None - Disposition Have Diagnosis and Disposition been Completed?: Yes Diagnosis: Calcific tendinitis of left shoulder, Chest pain Disposition: HOME/ ROUTINE Disposition Time: 14:57 Patient Plan: Discharge Patient Problems: Current Active Problems Problem Status Onset Calcific tendinitis of left shoulder Acute Chest pain Acute Condition: STABLE Discharge Instructions (ExitCare): Chest Pain (ED), Calcific Tendonitis of the Shoulder (DC), Chest Pain (DC) Additional Instructions: Return for any new or worsening symptoms. Follow up with your electronics research engineer to chase. Follow up with the orthopedic surgeon for the shoulder pain. TALHA DEGROOT, thank you for letting us take care of you today. Your provider was Dr. Stew Albert and you were treated for left arm pain. The emergency medical care you received today was directed at your acute symptoms. If you were prescribed any medication, please fill it and take as directed. It may take several days for your symptoms to resolve. Return to the Emergency Department if your symptoms worsen, do not improve, or if you have any other problems. Please contact your doctor or call one of the physicians/clinics you have been referred to that are listed on the Patient Visit Information form that is included in your discharge packet. Bring any paperwork you were given at discharge with you along with any medications you are taking to your follow up visit. Our treatment cannot replace ongoing medical care by a primary care provider outside of the emergency department. Thank you for allowing the [facility] team to be part of your care today. If you had an X-Ray or CT scan: A Radiologist will review the ED reading if any change in treatment is needed we will contact you. If you had a blood, urine, or wound culture: It will take several days for the results, if any change in treatment is needed we will contact you. If you had an STI test: It will take 48 hours for the results. Please call after 1 week if you have not heard back. Referrals: [facility] [Outside] - Follow up with primary Sandeep Nixon MD [Staff Provider] - Follow up with primary Forms: [employer] (Hungarian)
[2018-09-21 11:14] LABS: BASO # 0.02 K/mm3 (0.0-2.0); BASO % 0.2 % (0.0-3.0); EOS # 0.2 (0.0-0.7); EOS % 1.8 % (1.5-5.0); GRAN # 6.83 (1.4-6.5); GRAN % 71.3 % (50.0-68.0); HEMOGLOBIN 11.5 g/dL (12.0-16.0); LYMPH # 2.1 (1.2-3.4); LYMPH % 21.5 % (22.0-35.0); MEAN CELL VOLUME 84.5 fl (80.0-105.0); MEAN CORPUSCULAR HEMOGLOBIN 28.3 pg (25.0-35.0); MEAN CORPUSCULAR HGB CONC 33.5 g/dl (31.0-37.0); MEAN PLATELET VOLUME 10.4 fl (7.0-11.0); MONO # 0.5 (0.1-0.6); MONO % 5.2 % (1.0-6.0); RBC 4.06 10^6/uL (3.5-6.1); RED CELL DISTRIBUTION WIDTH 13.2 % (11.5-14.5); WHITE BLOOD COUNT 9.6 10^3/uL (4.5-11.0)
[2018-09-21 11:23] LABS: ALB/GLOB RATIO 1.3 (1.1-1.8); ALBUMIN 4.1 g/dL (3.0-4.8); ALT/SGPT 26 U/L (7-56); AST/SGOT 24 U/L (14-36); BLOOD UREA NITROGEN 19 mg/dL (7-21); CALCIUM 9.9 mg/dL (8.4-10.5); GFR NON-AFRICAN AMERICAN > 60; INR 1.04; PARTIAL THROMBOPLASTIN TIME 24.2 Seconds (25.1-36.5)
[2018-09-21 11:35] LABS: TROPONIN I 0.03 ng/mL
--- NOTE | 2018-09-21 13:31 | CARD ---
APPROVED REPORT Date of service: 09/21/2018 EKG Measurement Heart [id number] CO [id number] <Conclusion> Sinus rhythm with premature atrial complexes Otherwise normal ECG
--- NOTE | 2018-09-21 14:11 | RAD ---
Date of service: 09/21/2018 HISTORY: chest pain COMPARISON: 11/29/2016 TECHNIQUE: Chest PA and lateral FINDINGS: LUNGS: No active pulmonary disease. PLEURA: No significant pleural effusion identified. No pneumothorax apparent. CARDIOVASCULAR: No aortic atherosclerotic calcification present. Normal cardiac size. No pulmonary vascular congestion. OSSEOUS STRUCTURES: No significant abnormalities. VISUALIZED UPPER ABDOMEN: Normal. OTHER FINDINGS: None. IMPRESSION: No active disease.
--- NOTE | 2018-09-21 14:14 | RAD ---
Date of service: 09/21/2018 PROCEDURE: Radiographs of the Left Shoulder HISTORY: left shoulder pain COMPARISON: No prior. FINDINGS: BONES: Normal. No fracture. JOINTS: Normal. Glenohumeral and acromioclavicular joints preserved. No osteoarthritis. SOFT TISSUES: Small calcification adjacent to the greater tuberosity consistent with calcific tendonitis OTHER FINDINGS: None. IMPRESSION: No acute findings
--- NOTE | 2018-09-21 14:16 | RAD ---
Date of service: 09/21/2018 PROCEDURE: Cervical Spine Radiographs. HISTORY: Pain. COMPARISON: None available. FINDINGS: BONES: Alignment maintained. No fracture. Dens Intact. DISC SPACES: Normal. SOFT TISSUES: Normal. No prevertebral soft tissue swelling. OTHER FINDINGS: None. IMPRESSION: Normal cervical spine radiographs
[2018-09-21 14:49] VITALS: BP 142/60; PULSE 73; RESP 17; O2SAT 99
== END 2018-09-21 15:23 | disposition home or self-care (01) ==
LOC: ED 09:43
DX: M75.32 Calcific tendinitis of left shoulder (principal); R07.9 Chest pain, unspecified; E11.9 Type 2 diabetes mellitus without complications; Z89.432 Acquired absence of left foot

== ENCOUNTER 2019-03-17 17:25 | Inpatient (IN) | payer MEDICARE ==
[2019-03-17] MEDS ORDERED: Sodium Chloride 0.9% 500 ML IV STA (17:37)
--- NOTE | 2019-03-17 17:43 | ED PDOC ---
Arrival/HPI - General Chief Complaint: Chest Pain Time Seen by Provider: 03/17/19 17:37 Historian: Patient - History of Present Illness Narrative History of Present Illness (Text): 03/17/19 17:39 73 y/o female, pmh including htn/hld/dm, allergic to statins and oxycodone, c/o chest pain and palpitation x 2 hours. Pt. stated that she has sudden onset of lt. sided chest pain with palpitation x 2 hours, called the ambulance and came to the ER, no night sweat, no numbness or tingling, no change in vision, no night sweat, no other medical or psychological complaints. Past Medical History - Provider Review Nursing Documentation Reviewed: Yes - Past History Past History: Non-Contributing - Infectious Disease Hx of Infectious Diseases: None - Tetanus Immunization Tetanus Immunization: Unknown - Cardiac Hx Pacemaker: No - Pulmonary Hx Chronic Obstructive Pulmonary Disease (COPD): No - Neurological Hx Paralysis: No - HEENT Hx HEENT Disorder: Yes Hx Blind: No Hx Cataracts: Yes (Removed) Hx Deafness: No Hx Difficulty Chewing: No Hx Epistaxis: No Hx Glaucoma: No Hx Macular Degeneration: No - Renal Hx Renal Failure: No - Endocrine/Metabolic Hx Diabetes Mellitus Type 2: Yes - Hematological/Oncological Hx Blood Transfusions: Yes (10/06/15) Hx Blood Transfusion Reaction: No - Integumentary Hx Dermatological Disorder: No Hx Basal Cell Carcinoma: No Hx Eczema: No Hx Melanoma: No Hx Psoriasis: No Hx Squamous Cell Carcinoma: No - Musculoskeletal/Rheumatological Hx Musculoskeletal Disorders: No - Gastrointestinal Hx Gastrointestinal Disorders: No Hx Colostomy: No Hx Crohn's Disease: No Hx Diverticulitis: No Hx Gall Bladder Disease: No Hx Gastroesophageal Reflux: No Hx Ileostomy: No Hx Liver Failure: No Hx Pancreatitis: No HX Swallowing Problems: No Other/Comment: chronic constipation - Genitourinary/Gynecological Hx Reproductive Disorders: No - Psychiatric Hx Emotional Abuse: No Hx Physical Abuse: No Hx Substance Use: No - Surgical History Hx Amputation: Yes (Partial Left foot) Hx Appendectomy: Yes - Anesthesia Hx Anesthesia Reactions: No Hx Malignant Hyperthermia: No - Suicidal Assessment Feels Threatened In Home Enviroment: No Family/Social History - Physician Review Nursing Documentation Reviewed: Yes Family/Social History: Unknown Family HX Smoking Status: Former Smoker Hx Alcohol Use: No Hx Substance Use: No Hx Substance Use Treatment: No Allergies/Home Meds Allergies/Adverse Reactions: Allergies aspartame Allergy (Mild, Verified 09/21/18 12:04) HEADACHE atorvastatin calcium [From Lipitor] Allergy (Verified 09/21/18 12:04) Pt gets 'hyper' oxycodone HCl [From Percocet] Allergy (Verified 09/21/18 12:04) SHORTNESS OF BREATH Equal Allergy (Uncoded 09/21/18 12:04) HEADACHE Home Medications: Home Meds Medication Instructions Recorded Confirmed Aspirin [Ecotrin] 81 mg PO DAILY 05/21/16 10/08/17 Losartan [Cozaar] 25 mg PO DAILY 05/21/16 10/08/17 Insulin Detemir [Levemir] 10 unit SC ACLD 08/29/17 10/02/17 Metformin HCl [Glucophage] 1,000 mg PO BID 08/29/17 10/08/17 Simvastatin [Zocor] 20 mg PO DAILY 08/29/17 10/08/17 Cholecalciferol (Vitamin D3) 2,000 unit PO DAILY 10/02/17 10/08/17 [Vitamin D3] Insulin Aspart, Recombinant 3 - 4 unit SC AC PRN 10/02/17 10/08/17 [Novolog] Multivit-Min/FA/Lycopen/Lutein 1 tab PO DAILY 10/02/17 10/08/17 [Centrum Silver Tablet] Review of Systems - Review of Systems Constitutional: absent: Fatigue, Fevers Eyes: absent: Vision Changes ENT: absent: Hearing Changes Respiratory: absent: SOB, Cough Cardiovascular: Chest Pain, Palpitations Gastrointestinal: absent: Abdominal Pain, Nausea, Vomiting Musculoskeletal: absent: Arthralgias, Back Pain Skin: absent: Rash, Pruritis Hemo/Lymphatic: absent: Adenopathy, Easy Bleeding Psychiatric: absent: Anxiety, Depression, Suicidal Ideation Physical Exam Pain Distress: Mild - Systems Exam Head: Present: Atraumatic, Normocephalic Pupils: Present: PERRL Extroacular Muscles: Present: EOMI Conjunctiva: Present: Normal Mouth: Present: Moist Mucous Membranes Neck: Present: Normal Range of Motion Respiratory/Chest: Present: Clear to Auscultation, Good Air Exchange. No: Respiratory Distress, Accessory Muscle Use, Wheezes, Decreased Breath Sounds, Rales, Retracting, Rhonchi, Tachypneic, Tender to Palpation, Other Cardiovascular: Present: Regular Rate and Rhythm, Tachycardic. No: Murmurs Abdomen: No: Tenderness, Distention, Peritoneal Signs Back: Present: Normal Inspection Upper Extremity: Present: Normal Inspection. No: Cyanosis, Edema Lower Extremity: Present: Normal Inspection. No: Edema Neurological: Present: GCS=15, CN II-XII Intact, Speech Normal Skin: Present: Warm, Dry, Normal Color. No: Rashes Psychiatric: Present: Alert, Oriented x 3, Normal Insight, Normal Concentration Medical Decision Making ED Course and Treatment: 03/17/19 17:44 Differential: STEMI vs. Cardiac arrythmia vs. NSTEMI vs. CHF vs. Pneumothorax vs. Pneumonia -Labs -EKG -Chest xray -IV cardizem 20mg -machine ii coremaker -Observe and reassess 03/17/19 17:51 -EKG: A.flutter @ 166 BPM, 2:1, non specific ST changes on aVR and ST depression on lead I/aVL, no ST elevation, compared with previous ekg. -IV cardizem given -Post cardizem IV, repeat ekg show: NSR @ 85 bpm, no ST elevation or depression, no T wave inversion, compared with previous ekg 03/17/19 18:34 -EKG: A.flutter @ 166 BPM, 2:1, non specific ST changes on aVR and ST depression on lead I/aVL, no ST elevation, compared with previous ekg -Post cardizem IV, repeat ekg show: NSR @ 85 bpm, no ST elevation or depression, no T wave inversion, compared with previous ekg -Chest xray No active disease. No significant interval change compared to the prior examination(s). -labs are non-significant except hyperglycemia 353 (fluid ordered, chronic DM, no signs of DKA). -Trop is negative -Thyroid panel within normal limit -Based on the [id number] and her score is 4, she need to be anticoagulated. I'll defer the admitting physician and certified art therapist whether continuous is recommended. -IV heparin bolus and drip ordered 03/17/19 19:22 -I spoke to the pt's pcp, Dr. Porter Puente, discussed about the case/labs/radiology and ekg results, agreed on the plan of care and admission, request dr. Quispe for routine consult which I ordered. -I discussed all plan of care with the patient/daughter and Dr. Bennett, they agreed with the plan of care 03/17/19 19:34 -Pt. has chronic left shoulder pain, refused IV or po pain medication, lidoderm patch ordered - Critical Care Critical Care Minutes: 30 minutes Critical Care Time: Unstable Narrative Critical Care (Text): 03/17/19 17:46 a.flutter with tachycardia @ 166bpm, chest pain and palpitation, - RAD Interpretation Radiology Orders: 03/17/19 17:38 CHEST PORTABLE [RAD] Stat Date of service: 03/17/2019 HISTORY: palpitation x 2 hours COMPARISON: 09/21/2018 two-view chest FINDINGS: LUNGS: No active pulmonary disease. PLEURA: No significant pleural effusion identified, no pneumothorax apparent. CARDIOVASCULAR: No radiographic findings to suggest acute or significant cardiovascular disease. Atherosclerotic calcifications identified primarily aortic arch. OSSEOUS STRUCTURES: No significant abnormalities. VISUALIZED UPPER ABDOMEN: Normal. OTHER FINDINGS: None. IMPRESSION: No active disease. No significant interval change compared to the prior examination(s). Wet Silk Hanger: Radiologist - Medication Orders Current Medication Orders: Diltiazem HCl (Cardizem) 20 mg IVP STAT STA Stop: 03/17/19 17:38 Sodium Chloride (Sodium Chloride 0.9%) 500 mls @ 999 mls/hr IV .Q31M STA Stop: 03/17/19 18:07 - PA / BRICK BAKER / Resident Statement MD/DO has reviewed & agrees with the documentation as recorded. Disposition/Present on Arrival - Present on Arrival Any Indicators Present on Arrival: No History of DVT/PE: No History of Uncontrolled Diabetes: No Urinary Catheter: No History of Decub. Ulcer: No History Surgical Site Infection Following: None - Disposition Have Diagnosis and Disposition been Completed?: Yes Diagnosis: Atrial flutter, Chest pain, Palpitation, Shoulder pain Disposition: HOSPITALIZED Disposition Time: 17:46 Patient Plan: Admission, Telemetry Patient Problems: Current Active Problems Problem Status Onset Chest pain Acute Atrial flutter Acute Palpitation Acute Condition: STABLE
[2019-03-17 17:55] LABS: BASO # 0.02 K/mm3 (0.0-2.0); BASO % 0.2 % (0.0-3.0); EOS # 0.2 (0.0-0.7); EOS % 2.2 % (1.5-5.0); HEMOGLOBIN 12.5 g/dL (12.0-16.0); LYMPH % 32.4 % (22.0-35.0); MEAN CELL VOLUME 84.2 fl (80.0-105.0); MEAN CORPUSCULAR HEMOGLOBIN 27.9 pg (25.0-35.0); MEAN CORPUSCULAR HGB CONC 33.2 g/dl (31.0-37.0); MEAN PLATELET VOLUME 10.9 fl (7.0-11.0); MONO # 0.4 (0.1-0.6); RBC 4.48 10^6/uL (3.5-6.1); RED CELL DISTRIBUTION WIDTH 13.5 % (11.5-14.5); WHITE BLOOD COUNT 9.3 10^3/uL (4.5-11.0)
--- NOTE | 2019-03-17 18:08 | RAD ---
Date of service: 03/17/2019 HISTORY: palpitation x 2 hours COMPARISON: 09/21/2018 two-view chest FINDINGS: LUNGS: No active pulmonary disease. PLEURA: No significant pleural effusion identified, no pneumothorax apparent. CARDIOVASCULAR: No radiographic findings to suggest acute or significant cardiovascular disease. Atherosclerotic calcifications identified primarily aortic arch. OSSEOUS STRUCTURES: No significant abnormalities. VISUALIZED UPPER ABDOMEN: Normal. OTHER FINDINGS: None. IMPRESSION: No active disease. No significant interval change compared to the prior examination(s).
[2019-03-17 18:10] LABS: B-TYPE NATRIURETIC PEPTIDE 1200 pg/mL (0-450); TROPONIN I < 0.01 ng/mL
[2019-03-17 18:15] LABS: ALB/GLOB RATIO 1.5 (1.1-1.8); ALBUMIN 4.5 g/dL (3.0-4.8); ALT/SGPT 28 U/L (7-56); AST/SGOT 26 U/L (14-36); BLOOD UREA NITROGEN 24 mg/dL (7-21); CALCIUM 10.1 mg/dL (8.4-10.5); GFR NON-AFRICAN AMERICAN > 60
[2019-03-17 18:21] LABS: FREE T4 1.38 ng/dL (0.78-2.19)
[2019-03-17] MEDS ORDERED: Heparin25000 units/250ml 1/2NS 25,000 UNITS/250 ML BAG IV PRN ×2 (18:35→19:06)
[2019-03-17 18:59] LABS: INR 0.98; PARTIAL THROMBOPLASTIN TIME 33.1 Seconds (26.9-38.3); PROTHROMBIN TIME 10.9 SECONDS (9.4-12.5)
--- NOTE | 2019-03-17 19:27 | CARD ---
APPROVED REPORT Date of service: 03/17/2019 EKG Measurement Heart [id number] [place] 180P34 [id number] <Conclusion> Normal sinus rhythm ST & T wave abnormality, consider lateral ischemia Abnormal ECG
--- NOTE | 2019-03-17 19:30 | CARD ---
APPROVED REPORT Date of service: 03/17/2019 EKG Measurement Heart [id number] <Conclusion> A flutter with 2:[address] & T wave abnormality, consider lateral ischemia Abnormal ECG
[2019-03-17] MEDS ORDERED: Lidocaine 5% Patch TD STA (19:33)
[2019-03-17] MEDS ORDERED: Sodium Chloride 0.9% 1,000 ML IV SCH (21:15)
[2019-03-17] MEDS ORDERED: Magnesium Sulfate 2 gm/50 ml 2 GM/50 ML BAG IVPB ONE (21:45)
[2019-03-17] MEDS: Insulin Detemir 100 units/ml Vial (Levemir) SC SCH (22:33)
[2019-03-17 23:45] VITALS: BMI 24.1
--- NOTE | 2019-03-18 04:33 | CP.PCM.PN ---
Subjective - Date & Time of Evaluation Date of Evaluation: 03/18/19 Time of Evaluation: 04:33 - Subjective Subjective: Patient was seen because she had requested for her Lyrica. [facility]. Has no other complaints now. Medical record was reviewed. This 73 year old woman was admitted for 1 day history of chest pain and palpitation. Has PMH of CAD,PVD,HTN, HLD, IDDM. Objective - Vital Signs/Intake and Output Vital Signs (last 24 hours): Temp Pulse Resp BP Pulse Ox 97.6 F 69 20 159/65 H 97 03/18/19 00:01 03/18/19 02:00 03/18/19 00:01 03/18/19 00:01 03/18/19 00:01 - Medications Medications: Current Medications Aspirin (Aspirin Chewable) 81 mg PO DAILY [facility] Heparin Sodium/Sodium Chloride (Heparin 61717 Units/250ml 1/2 Normal Saline) 25,000 units in 250 mls @ 10.826 mls/hr IV .Q23H6M PRN; Protocol PRN Reason: ADJUST RATE PER PROTOCOL Last Titration: 03/18/19 03:45 Dose: 15 units/kg/hr, 9.022 mls/hr Sodium Chloride (Sodium Chloride 0.9%) 1,000 mls @ 75 mls/hr IV .[id number] [facility] Stop: 03/18/19 23:54 Last Admin: 03/17/19 21:49 Dose: 75 mls/hr Insulin Detemir (Levemir) 10 unit SC HS [facility] Last Admin: 03/17/19 22:33 Dose: 10 unit Metformin HCl (Glucophage) 1,000 mg PO BID [facility] - Labs Labs: 03/17/19 17:41 03/17/19 17:41 PT 10.9 SECONDS (9.4-12.5) 03/17/19 18:47 INR 0.98 03/17/19 18:47 APTT 161.1 Seconds (26.9-38.3) H* 03/18/19 01:38 - Constitutional Appears: Well, No Acute Distress - Head Exam Head Exam: ATRAUMATIC, NORMAL INSPECTION, NORMOCEPHALIC - Eye Exam Eye Exam: Normal appearance - ENT Exam ENT Exam: Normal External Ear Exam - Neck Exam Neck Exam: Normal Inspection - Respiratory Exam Respiratory Exam: NORMAL BREATHING PATTERN - Cardiovascular Exam Cardiovascular Exam: absent: JVD - GI/Abdominal Exam GI & Abdominal Exam: absent: Distended - Rectal Exam Rectal Exam: Deferred - Exam Additional comments: Deferred. - Extremities Exam Extremities Exam: Normal Inspection - Back Exam Back Exam: NORMAL INSPECTION - Neurological Exam Neurological Exam: Alert, Awake - Psychiatric Exam Psychiatric exam: Normal Affect, Normal Mood - Skin Skin Exam: Normal Color Assessment and Plan - Assessment and Plan (Free Text) Assessment: Neuropathic pain. CAD PVD HTN HLD IDDM. Plan: Lyrica as ordered. Continue present management.
[2019-03-18 06:35] LABS: BASO # 0.02 K/mm3 (0.0-2.0); BASO % 0.2 % (0.0-3.0); EOS # 0.2 (0.0-0.7); HEMOGLOBIN 11.5 g/dL (12.0-16.0); LYMPH # 2.5 (1.2-3.4); LYMPH % 25.6 % (22.0-35.0); MEAN CELL VOLUME 84.8 fl (80.0-105.0); MEAN CORPUSCULAR HEMOGLOBIN 27.4 pg (25.0-35.0); MEAN CORPUSCULAR HGB CONC 32.3 g/dl (31.0-37.0); MEAN PLATELET VOLUME 10.1 fl (7.0-11.0); MONO # 0.6 (0.1-0.6); MONO % 6.4 % (1.0-6.0); RBC 4.2 10^6/uL (3.5-6.1); RED CELL DISTRIBUTION WIDTH 13.5 % (11.5-14.5); WHITE BLOOD COUNT 9.8 10^3/uL (4.5-11.0)
[2019-03-18 07:09] LABS: ALB/GLOB RATIO 1.3 (1.1-1.8); ALBUMIN 3.8 g/dL (3.0-4.8); ALT/SGPT 34 U/L (7-56); AST/SGOT 105 U/L (14-36); BLOOD UREA NITROGEN 17 mg/dL (7-21); CALCIUM 9.2 mg/dL (8.4-10.5); GFR NON-AFRICAN AMERICAN > 60
--- NOTE | 2019-03-18 09:57 | CARD ---
APPROVED REPORT Date of service: 03/18/2019 EKG Measurement Heart [id number] [place] 178P38 [id number] <Conclusion> Sinus rhythm with premature atrial complexes Inferior infarct, age Probably Old. Abnormal ECG
[2019-03-18] MEDS ORDERED: Lidocaine 2% Inj (20ml) ONE (10:33)
[2019-03-18] MEDS ORDERED: Iodixanol 320 MG/ML 100 ML BOTTLE IV ONE (10:34)
[2019-03-18] MEDS ORDERED: Iodixanol 320 MG/ML 200 ML BOTTLE IV ONE (10:34)
[2019-03-18] MEDS ORDERED: Iohexol 350mgl/ml 50 ML ONE (10:34)
[2019-03-18] MEDS: Midazolam 2 MG/2 ML VIAL ONE ×2 (11:09→14:43)
[2019-03-18] MEDS ORDERED: Sodium Chloride 0.9% 1,000 ML IV SCH (12:00)
--- NOTE | 2019-03-18 12:45 | CP.PCM.PCO ---
Physician Communication Note - Physician Communication Note Physician Communication Note: s/p PCI stent x 2, staging required as per cardiology.
[2019-03-18 13:30] LABS: TROPONIN I 10.2 ng/mL
--- NOTE | 2019-03-18 13:44 | HP ---
HISTORY OF PRESENT ILLNESS: The patient is a 73-year-old woman with a past medical history of nonobstructive CAD, hypertension, hyperlipidemia and insulin-dependent diabetes mellitus who presented for evaluation of a 1 day history of substernal chest pain associated with palpitations. The patient was in her usual state of health until several hours prior to presentation to the ED when she developed a sudden onset of a substernal chest discomfort. She describes her chest discomfort as a pressure to the mid-chest associated with palpitations and dyspnea. She denied diaphoresis, nausea, vomiting or radiation of her pain. Due to the intensity of the pain, she opted for ED evaluation. In the ED she was afebrile and normotensive but markedly tachycardic with a pulse of 165. An EKG demonstrated new-onset atrial flutter with 2:1 conduction at a rate of 166 beats per minute. She was started on a Cardizem infusion and subsequently admitted to the telemetry chen for continued management of new onset atrial flutter. PAST MEDICAL HISTORY: As per HPI, also PVD s/p IR revascularization s/p LLE vascular bypass surgery and sciatica. 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 ALLERGIES: Lipitor, Oxycodone and artificial sweeteners. MEDICATIONS: Losartan 25 mg p.o. daily, Simvastatin 20 mg p.o. daily, Metformin 1000 mg p.o. b.i.d., Levemir 10 units sc qhs, NovoLog 3-4 units sc t.i.d., Aspirin 81 mg p.o. daily and Lyrica 100 mg p.o. at bedtime. FAMILY HISTORY: Significant for hypertension and diabetes in her mother and alcoholism in her father. SOCIAL HISTORY: The patient denies any history of toxic habits. REVIEW OF SYSTEMS: A 12-point review of systems is negative except as per HPI. PHYSICAL EXAMINATION: VITAL SIGNS: Temperature 98, pulse 69, blood pressure 150/69, respiratory rate 18, oxygen saturation 97% on room air. GENERAL: No apparent distress. HEENT: PERRL, EOMI. No scleral icterus. No conjunctival pallor. NECK: No JVD. No bruits. LUNGS: Clear to auscultation. CARDIOVASCULAR: Irregularly irregular. Normal S1, S2, Grade II/ JONO to LLSB. PMI not displaced. ABDOMEN: Normoactive bowel sounds, soft, nontender, nondistended. EXTREMITIES: No edema. NEUROLOGIC: Awake, alert and oriented x 3. No focal motor deficits. LABORATORY DATA: WBC 9.80, hemoglobin 0.5, hematocrit 36, platelets 151. Sodium 141, potassium 4.5, chloride 106, bicarb 28, BUN 17, creatinine 0.7, glucose 159. Troponin < 0.01, 14.2. BNP 1200. TSH 1.12. ASSESSMENT: The patient is a 73-year-old woman with multiple medical comorbidities including nonobstructive CAD, hypertension, hyperlipidemia and insulin-dependent diabetes mellitus who presented for evaluation of a 1 day history of sudden onset substernal chest discomfort associated with dyspnea and palpitations and was admitted for management of NSTEMI and new onset atrial flutter. PLAN: 1. NSTEMI. Cardiac evaluation with Dr. Corona is pending and patient will likely require cardiac cath. Continue Aspirin 81 mg p.o. daily, Simvastatin 20 mg p.o. daily and Heparin drip. 2. Atrial flutter, new onset, consider secondary to NSTEMI. The patient remains rate controlled and is off the Cardizem drip. As above, evaluation with Dr. Corona is pending. 3. CAD. Continue Aspirin 81 mg p.o. daily and Simvastatin 20 mg p.o. daily. Evaluation with Dr. Corona is pending. 4. Hyperlipidemia. The patient is on Simvastatin 20 mg p.o. daily at home but this is not on formulary and she is allergic to Lipitor. We will continue her home Simvastatin. We will repeat a lipid panel in the morning. 5. Insulin-dependent 2 diabetes mellitus. Continue Metformin 1000 mg p.o. b.i.d., Levemir 10 units sc qhs and high dose insulin sliding scale for coverage. We will repeat a hemoglobin A1c in the morning. 6. Hypertension. Blood pressure controlled. Continue Losartan 25 mg p.o. daily. 7. Severe PVD s/p LLE vascular bypass surgery. Continue Aspirin 81 mg p.o. daily and Simvastatin 20 mg p.o. daily 8. Sciatica. Continue Lyrica 100 mg p.o. at bedtime. 9. Prophylaxis. GI prophylaxis not indicated as the patient is eating. DVT prophylaxis not indicated as the patient remains on Heparin drip. CODE STATUS: Full code. Porter Puente MD ANJANA
--- NOTE | 2019-03-18 18:45 | CARD ---
APPROVED REPORT Date of service: 03/18/2019 EKG Measurement Heart [id number] OR 170P50 [id number] <Conclusion> Sinus rhythm with premature atrial complexes Inferior infarct, age undetermined Cannot rule out Anterior infarct, age undetermined Abnormal ECG
[2019-03-18 20:37] LABS: TROPONIN I 8.38 ng/mL
[2019-03-18] MEDS: Insulin Detemir 100 units/ml Vial (Levemir) SC SCH (22:20)
--- NOTE | 2019-03-18 23:56 | CARDCATH ---
PROCEDURE DATE: 03/18/2019 PROCEDURES: 1. Selective left and right coronary angiography. 2. Left ventriculography. 3. Percutaneous coronary intervention of mid and distal right coronary artery with drug-eluting stents. 4. Right femoral arteriography. 5. Angio-Seal deployment. HISTORY: This is a 73-year-old woman with multiple cardiac risk factors who was admitted last evening with a chest pain and tachycardia. She was noted to be in atrial flutter with 2:1 conduction. She converted to sinus rhythm. She continued to have chest pain after cardioversion and her EKG showed lateral ischemic changes. Troponin was initially negative and thomas to 14. Catheterization was advised. INDICATION: Ujf-JJ-afsvjuf elevation myocardial infarction. FINDINGS: HEMODYNAMICS: Aortic pressure was 150/70, left heart pressure 150/16. CORONARY ANATOMY: 1. The left mainstem had mild proximal tapering. 2. The left anterior descending artery was moderately calcified with a long segment of 80% stenosis within the early mid segment of the vessel. The left anterior descending distal vessel had a 90% stenosis. The vessel was fairly large and wrapped around the apex to supply the distal third of the inferior wall. The diagonal branches were of small to moderate size with moderate diffuse disease. 3. The left circumflex artery gave rise to two moderate sized obtuse marginal branches, both had multiple subbranches. In the early mid segment of the circumflex artery, there was a focal eccentric 80% stenosis. The vessel was also yiuc-mq-pdjedkrxng calcified. 4. The right coronary artery was fairly small and occluded in the mid portion. There was also evidence of severe proximal and ostial disease. Faint collaterals were noted to the distal right coronary artery, which appeared to be a fairly small vessel. LEFT VENTRICULOGRAPHY: A hand injection was performed of the left ventricle revealing relatively normal wall motion with an ejection fraction of 55%. There was no aortic valve gradient or on catheter pullback. CORONARY INTERVENTION: An additional 3000 units of intravenous heparin was administered and the ACT was greater than 300 seconds during the procedure. A 3.5 EBU guiding catheter was utilized and the lesions in the LAD were successfully crossed with the use of a [place] wire. Over this, a 2.0 x 12-mm balloon was advanced and inflated in the early distal as well as the mid segment to 8 atmospheres at both locations for 30 seconds. The balloon was then withdrawn and a 2.5 x 18 mm Resolute [place] drug-eluting stent was advanced into the distal segment of the vessel. This was inflated to a total atmospheres of 45 seconds. The balloon was then withdrawn and a 2.75 x 26 mm Resolute [place] stent was advanced into mid segment of the vessel. This was positioned with slight overlap of the first stent. The stent was then inflated to 12 atmospheres for 45 seconds. After this, the balloon was deflated and advanced into the overlap segment of the two stents and inflated to 12 atmospheres for 30 seconds. FRANCHESKA grade II flow was noted before the intervention followed by a FRANCHESKA III flow after the intervention. There was 0% residual stenosis throughout the stented segments. RIGHT FEMORAL ARTERIOGRAPHY: A right femoral arteriogram was performed in the P[place] projection. This revealed no evidence of significant disease with appropriate level of arterial puncture. The puncture site was then closed with deployment of an Angio-Seal device. CONCLUSION: 1. Severe mid and distal left anterior descending disease successfully treated with drug-eluting stents as described above. 2. Severe early mid circumflex disease. 3. Occluded right coronary artery. 4. Preserved left ventricular systolic function. RECOMMENDATIONS: Aspirin and Plavix therapy will be continued for at least one year. Serial enzymes will be obtained. Risk factor control will be advised. High-dose statin therapy will be initiated. Plans were made for a staged PCI of left circumflex lesion in the next few weeks. Jose Quispe MD
[2019-03-19 04:12] LABS: BASO # 0.01 K/mm3 (0.0-2.0); BASO % 0.1 % (0.0-3.0); EOS # 0.2 (0.0-0.7); EOS % 2.5 % (1.5-5.0); HEMOGLOBIN 10.6 g/dL (12.0-16.0); LYMPH # 1.5 (1.2-3.4); LYMPH % 17.2 % (22.0-35.0); MEAN CELL VOLUME 83.5 fl (80.0-105.0); MEAN CORPUSCULAR HEMOGLOBIN 27.4 pg (25.0-35.0); MEAN CORPUSCULAR HGB CONC 32.8 g/dl (31.0-37.0); MEAN PLATELET VOLUME 9.8 fl (7.0-11.0); MONO # 0.4 (0.1-0.6); MONO % 4.6 % (1.0-6.0); RBC 3.87 10^6/uL (3.5-6.1); RED CELL DISTRIBUTION WIDTH 13.5 % (11.5-14.5); WHITE BLOOD COUNT 8.4 10^3/uL (4.5-11.0)
[2019-03-19 04:30] LABS: LDL CHOLESTEROL 60 mg/dL (0-129)
[2019-03-19 04:31] LABS: ALB/GLOB RATIO 1.2 (1.1-1.8); ALBUMIN 3.5 g/dL (3.0-4.8); ALT/SGPT 31 U/L (7-56); AST/SGOT 51 U/L (14-36); BLOOD UREA NITROGEN 12 mg/dL (7-21); CALCIUM 8.8 mg/dL (8.4-10.5); GFR NON-AFRICAN AMERICAN > 60; HDL CHOLESTEROL 28 mg/dL (29-60)
[2019-03-19 05:05] LABS: TROPONIN I 6.43 ng/mL
--- NOTE | 2019-03-19 07:58 | CON ---
DATE: 03/18/2019 CONSULTATION REQUESTING PHYSICIAN: Dr. Puente REASON FOR CONSULTATION: Atrial flutter, chest pain. HISTORY OF PRESENT ILLNESS: This is a 73-year-old woman known to me from prior evaluation with a history of mild coronary artery disease, had catheterization over 15 years ago, who presented to the emergency room with chest pain and palpitations. She was noted to be in atrial flutter with 2:1 conduction. She was given IV Cardizem and did break to sinus rhythm. She had chest discomfort and ST-T changes suggestive of lateral ischemia. She describes her chest pain as a heaviness radiating to her back and right shoulder. She is currently chest pain-free. PAST MEDICAL HISTORY: Her past history is notable for a history of hypertension, diabetes, and hyperlipidemia. SOCIAL HISTORY: She was a smoker, but quit many years ago. She does not drink. She lives along with her family. FAMILY HISTORY: There is no family history of premature heart disease. HOME MEDICATIONS: Her medications at home include aspirin, Cozaar, Levemir insulin, Glucophage, Zocor. ALLERGIES: SHE HAS HAD A REACTION TO ATORVASTATIN IN THE PAST WELL A SENSITIVITY TO OXYCODONE. FAMILY HISTORY: Her parents are from age-related illness. REVIEW OF SYSTEMS: Her 12-point review of systems is notable for the problems mentioned above. She denies any abdominal pain or bleeding issues. PHYSICAL EXAMINATION: GENERAL: She is an anxious-appearing, middle-aged woman. VITAL SIGNS: Her blood pressure is 150/56 with a pulse of 76 in sinus, respirations are 16. She is afebrile. HEENT: Normocephalic, atraumatic. NECK: Supple. No JVD noted. CHEST: Clear to auscultation and percussion. HEART: Normal first and second sounds. No pathological murmurs or gallops noted. ABDOMEN: Soft, nontender with normoactive bowel sounds. EXTREMITIES: No clubbing, cyanosis, or edema. SKIN: Warm and dry. PSYCHIATRIC: Normal mood and affect. NEUROLOGICAL: Alert and oriented x3. No gross motor or sensory deficits notable. LABORATORY DATA: The white count is 9.3, hemoglobin and hematocrit of 12.5 and 37.7, with a platelet count of 192,000. PT/PTT normal with a repeat PTT on heparin of 161, potassium 4.5, BUN and creatinine of 17 and 0.7, glucose 159. Troponin 14.2. Initial troponin was negative and admitting glucose was 353. DIAGNOSTIC IMAGING: Initial electrocardiogram revealed an atrial flutter with 2:1 conduction, repeat electrocardiogram reveals sinus rhythm with anterolateral ischemic changes. Chest x-ray reveals normal cardiac silhouette with clear lung link. IMPRESSION: 1. New-YK-vpbtpxv elevation myocardial infarction, clinically stable at present. 2. Atrial flutter with 2:1 conduction, now currently in sinus rhythm. 3. Multiple cardiac risk factors given the hypertension, diabetes, and hyperlipidemia. RECOMMENDATIONS: Given her presentation and elevated troponin, an urgent cardiac catheterization and possible intervention is advised. The risks and benefits were discussed with the patient in detail as well as her daughter via phone; she is agreeable to proceed. Alternatives of intensified medical therapy were discussed with her as well. The patient will be loaded with Plavix and urgent catheterization arranged for later this morning. Further recommendations will be made based on those results. Thank you for this consultation. Jose Quispe MD ANJANA
--- NOTE | 2019-03-19 11:00 | PN ---
DATE: 03/19/2019 SUBJECTIVE: The patient is seen lying in bed on telemetry. She is comfortable at the present time. She has had no chest pain overnight. She did have an episode of atrial fibrillation which broke spontaneously. She was aware of palpitations at that time. Her peak troponin was 10.2 prior to her intervention yesterday, repeat this morning was 6.43. PHYSICAL EXAMINATION GENERAL: She is a middle-aged woman who is comfortable at the present time. VITAL SIGNS: Blood pressure is 172/76 with pulse of 76 and sinus, respirations of 14. She is afebrile. HEENT: No JVD. HEART: PMI displaced laterally with systolic murmur at the left sternal border. CHEST: Clear to auscultation percussion. ABDOMEN: Soft and nontender with bowel sounds. Right groin is clean and dry with no evidence of hematoma. EXTREMITIES: No edema. DIAGNOSTIC DATA: Troponin 6.43. CK 127, potassium 4.4, BUN and creatinine 12 and 0.7, glucose 159. White count 8.4, hematocrit 10.6 and 32.3 with platelet count 139,000. Cholesterol is 130 with an LDL of 60, HDL 28, triglycerides of 170. CURRENT MEDICATIONS: Include aspirin, Plavix, Cozaar 25 mg daily, metformin 1000 mg b.i.d. which has been on hold, Levemir insulin, metoprolol 50 mg every 12 hours, Lyrica. IMPRESSION: 1. Recent non-ST- segment elevation myocardial infarction, status post percutaneous coronary intervention of left anterior descending. 2. Residual mid circumflex disease. 3. Chronically occluded right coronary artery. 4. Preserved left ventricular systolic function. 5. Paroxysmal atrial fibrillation and flutter. 6. Hypertension, suboptimal control. 7. History of diabetes. RECOMMENDATIONS: Her current medication will continue. Metoprolol will be increased for heart rate control in the event of recurrent atrial dysrhythmias. If needed, losartan can be increased for blood pressure control if not improved with increasing metoprolol dose. Given her recurrent atrial dysrhythmias, anticoagulant therapy appears appropriate given that her CHADS VASc score is 4. In order to reduce the potential for bleeding risk, low-dose Eliquis will be initiated and aspirin will be discontinued after 1 month and Eliquis and Plavix therapy will continue. The patient will be brought back for staged intervention of her left circumflex artery with the next few weeks. The patient is encouraging to get out of bed and ambulate and if stable I would plan for discharge home in the morning. I will continue to follow and make further cases as needed. Jose Quispe MD MTDD
[2019-03-19] MEDS: Insulin Reg-LOW-Coverage SC SCH ×2 (16:45→21:45)
--- NOTE | 2019-03-19 17:31 | CP.PCM.PCO ---
Physician Communication Note - Physician Communication Note Physician Communication Note: Patient seen: Addendum Addendum: 03/19/19 17:28 Nursing Paged at 03/19 1700 report patient having mild episode of palpitations On evaluation: Upon evaluation patient no longer complaining of palpitations; no sob, cp, dizziness, reported On exam: Hr 80; BP 178/64; Heart: RRR, No murmur, CTABL A/P: Hypertensive urgency / emergency Start Catopress 0.2mg BID EKG Findings and plan discussed over the phone w/ Dr. Cindi Luna DO PGY1
--- NOTE | 2019-03-19 18:19 | CARD ---
APPROVED REPORT Date of service: 03/19/2019 EKG Measurement Heart [id number] PA 168P44 [id number] <Conclusion> Normal sinus rhythm Possible Inferior infarct, age undetermined Abnormal ECG
[2019-03-19] MEDS: Insulin Detemir 100 units/ml Vial (Levemir) SC SCH (21:47)
--- NOTE | 2019-03-19 22:37 | PN ---
DATE: 03/19/2019 SUBJECTIVE: The patient is a 73-year-old female who is in room 274, bed 2. She is sitting up in bed, having her breakfast and has no complaints. She had received two stents by Dr. Corona yesterday. There have been no acute events overnight. OBJECTIVE: VITAL SIGNS: This morning, temperature of 98.3, pulse rate of 78, blood pressure 161/74, and O2 saturation of 97% on room air. HEENT: PERRLA. EOMI. No icterus is present. NECK: Supple with full range of motion. No bruits are appreciated. LUNGS: Clear to auscultation and percussion bilaterally. HEART: Shows regular rate and rhythm. No murmurs or gallops are appreciated. ABDOMEN: Soft. It is not distended. It is nontender. Bowel sounds are normoactive. EXTREMITIES: Show no edema. NEUROLOGIC: There are no focal motor deficits. LABORATORY DATA: Glucose this morning of 159. AST of 51. Troponin is 6.43, which subsequently came down to 5.17. Cholesterol is 113. CBC is normal with the exception of hemoglobin and hematocrit of 10.6 and 32.3. Coagulation profile shows a PTT of 71.3. We will continue the patient on the current regimen. She is on insulin coverage with fingersticks q.i.d. CURRENT PROBLEM LIST: 1. Acute non-STEMI. 2. Coronary artery disease. 3. Hypertension. 4. Diabetes mellitus. 5. Anxiety. PLAN: Continue current medications. Possible discharge tomorrow morning. Doug Puente MD
[2019-03-20 06:35] VITALS: RESP 18; TEMP 98.3
[2019-03-20 07:39] LABS: BASO # 0.01 K/mm3 (0.0-2.0); BASO % 0.1 % (0.0-3.0); EOS # 0.3 (0.0-0.7); EOS % 3.4 % (1.5-5.0); HEMOGLOBIN 10.3 g/dL (12.0-16.0); LYMPH # 2.3 (1.2-3.4); MEAN CELL VOLUME 84.3 fl (80.0-105.0); MEAN CORPUSCULAR HEMOGLOBIN 27.5 pg (25.0-35.0); MEAN CORPUSCULAR HGB CONC 32.6 g/dl (31.0-37.0); MEAN PLATELET VOLUME 10.7 fl (7.0-11.0); MONO # 0.5 (0.1-0.6); MONO % 6.3 % (1.0-6.0); RBC 3.75 10^6/uL (3.5-6.1); RED CELL DISTRIBUTION WIDTH 13.6 % (11.5-14.5); WHITE BLOOD COUNT 7.7 10^3/uL (4.5-11.0)
[2019-03-20 08:03] LABS: ALB/GLOB RATIO 1.2 (1.1-1.8); ALBUMIN 3.4 g/dL (3.0-4.8); CALCIUM 9.1 mg/dL (8.4-10.5)
[2019-03-20] MEDS: Insulin Reg-LOW-Coverage SC SCH (08:32)
--- NOTE | 2019-03-20 09:08 | PN ---
DATE: 03/20/2019 SUBJECTIVE: The patient is seen lying in bed on telemetry. She is currently comfortable. She has had no recurrent SVT. She denies any chest pain or dyspnea. CURRENT MEDICATIONS: Include aspirin 81 mg daily, clonidine 0.2 mg twice a day, Cozaar 25 mg daily, Eliquis 2.5 mg twice a day, Glucophage 1000 mg twice a day, Levemir insulin 10 units at bedtime, Lipitor 40 mg daily, metoprolol 100 mg every 12 hours, Lyrica 100 mg at bedtime, Plavix 75 mg daily. OBJECTIVE: GENERAL: She is a middle-aged woman who is comfortable at the present time. VITAL SIGNS: Her blood pressure is 110/60 with pulse of 56 and sinus, respirations of 14, she is afebrile. HEENT: No JVD. CHEST: Clear to auscultation and percussion. HEART: PMI normal position. No pathologic murmurs noted. ABDOMEN: Soft and nontender with normoactive bowel sounds. EXTREMITIES: No edema. DIAGNOSTIC DATA: No blood work pending from this morning. IMPRESSION: 1. Recent pzw-ZS-gdymyqv elevation myocardial infarction status post percutaneous coronary intervention to left anterior descending artery. 2. Paroxysmal atrial flutter and fibrillation, currently on Eliquis. 3. Chronically occluded right coronary artery. 4. Preserved left ventricular systolic function. 5. Significant mid circumflex disease. 6. History of diabetes and hypertension. RECOMMENDATIONS: Her current medication should continue for now. If she has excessive bradycardia, clonidine can be discontinued and Cozaar dose increased as needed for blood pressure control. Eliquis, aspirin, and Plavix therapy will continue for at least the next 30 days at which time aspirin can be discontinued. Arrangements will be made for stage PCI for left circumflex within the next few weeks. From cardiac standpoint, she appears stable for discharge home, and the importance of compliance to medications was discussed at length with her. Risk factor control and activity restrictions were reviewed as well. Jose Quispe MD
[2019-03-20 10:36] VITALS: O2SAT 95
[2019-03-20 10:39] VITALS: BP 115/45; PULSE 66
--- NOTE | 2019-03-20 11:53 | CARD ---
APPROVED REPORT Date of service: 03/19/2019 EKG Measurement Heart [id number] IA 172P35 [id number] <Conclusion> Normal sinus rhythm Cannot rule out Inferior infarct, age undetermined Abnormal ECG
--- NOTE | 2019-03-20 16:32 | CARD ---
APPROVED REPORT Date of service: 03/18/2019 EXAM: Two-dimensional and M-mode echocardiogram with Doppler and color Doppler. INDICATION A-FLUTTER 2D DIMENSIONS Left Atrium (2D)4.2 (1.6-4.0cm)IVSd1.6 (0.7-1.1cm) LVDd4.1 (3.9-5.9cm)PWd1.1 (0.7-1.1cm) LVDs2.8 (2.5-4.0cm)FS (%) 30.4 % LVEF (%)58.3 (>50%) M-Mode DIMENSIONS Aortic Root2.80 (2.2-3.7cm)Aortic Cusp Exc.1.60 (1.5-2.0cm) Aortic Valve AoV Peak Gigchidg788.0cm/Katie Peak GR.7mmHgAI P 1/2 Dpis778ui Mitral Valve MV E Tigvgvtr790.0cm/sMV A Govrsbkt129.0cm/sE/A ratio0.9 TDI E/Lateral E'0.0E/Medial E'0.0 Tricuspid Valve TR Peak Sqxprcfk077td/sRAP [id number] Peak Gr.21mmHg [id number] LEFT VENTRICLE The left ventricle is normal size. There is borderline to mild concentric left ventricular hypertrophy. Proximal septal thickening is noted. The left ventricular function is normal.EF-55-60% There is normal LV segmental wall motion. The left ventricular diastolic function is normal.,Pt was in NSR at the time of study. No left ventricle thrombus noted on this study. There is no ventricular septal defect visualized. There is no left ventricular aneurysm. There is no mass noted in the left ventricle. RIGHT VENTRICLE The right ventricle is normal size. There is normal right ventricular wall thickness. The right ventricular systolic function is normal. ATRIA The left atrium is mildly dilated. The right atrium size is normal. The interatrial septum is intact with no evidence for an atrial septal defect. AORTIC VALVE The aortic valve is calcified and displays decreased opening. There is mild aortic regurgitation. Aortic sclerosis Vs mild As There is no aortic valvular vegetation. MITRAL VALVE The mitral valve is thickened but opens well. Mitral annular calcification is moderate. Mitral regurgitation is mild. There is no mitral valve stenosis. There is no evidence of mitral valve prolapse. TRICUSPID VALVE The tricuspid valve leaflets are thickened , but open well. There is mild tricuspid regurgitation.RVSP-31 mmof hg. There is no tricuspid valve stenosis. There is no tricuspid valve prolapse or vegetation. PULMONIC VALVE The pulmonic valve is mildly thickened. There is mild pulmonic valvular regurgitation. There is no pulmonic valvular stenosis. GREAT VESSELS The aortic root is normal in size. The ascending aorta is normal in size. The pulmonary artery is normal. The IVC is normal in size and collapses >50% with inspiration. PERICARDIAL EFFUSION There is no pleural effusion. There is no pericardial effusion. <Conclusion> The left ventricle is normal size. There is borderline to mild concentric left ventricular hypertrophy. Proximal septal thickening is noted. The left ventricular function is normal.EF-55-60% There is mild aortic regurgitation. Aortic sclerosis Vs mild As Mitral regurgitation is mild. There is mild tricuspid regurgitation.RVSP-31 mmof hg. The left ventricular diastolic function is normal.,Pt was in NSR at the time of study. The IVC is normal in size and collapses >50% with inspiration. There is no pericardial effusion.
--- NOTE | 2019-03-24 01:51 | DS ---
ADMISSION DIAGNOSES: Non-ST elevation myocardial infarction and new onset atrial flutter. DISCHARGE DIAGNOSES: Non-ST elevation myocardial infarction status post percutaneous coronary intervention with stent placement and new onset atrial flutter. SECONDARY DIAGNOSES: Coronary artery disease status post percutaneous coronary intervention with stent placement, hyperlipidemia, insulin-dependent diabetes mellitus, hypertension, severe peripheral vascular disease status post left lower extremity vascular bypass surgery and sciatica. CONSULTATIONS: Dr. Corona (Cardiology). IMAGING STUDIES: Chest x-ray demonstrated no acute pathology. DIAGNOSTIC STUDIES: Transthoracic echocardiogram demonstrated normal LV size and function with mild concentric LVH, mild tricuspid regurgitation and mild aortic stenosis. PROCEDURES: Cardiac catheterization demonstrated severe mid and distal left LAD disease status post ROSEMARIE stent placement and severe early mid circumflex disease and a chronically occluded right coronary artery. HOSPITAL COURSE: The patient is a 73-year-old woman with past medical history of nonobstructive CAD, hypertension, hyperlipidemia and insulin-dependent diabetes mellitus who presented for evaluation of 1-day history of substernal chest pain associated palpitations. She was in her usual state of health until several hours prior to presentation to the ED when she developed a sudden onset of substernal chest discomfort. She described her chest discomfort as a pressure to the mid chest associated with and dyspnea. She denied diaphoresis, nausea, vomiting or radiation of her pain. Due to the intensity of pain, she opted for ED evaluation. In the ED, she was afebrile and normotensive, but markedly tachycardic with a pulse of 165 and EKG demonstrated new onset atrial flutter with 2:1 conduction at a rate of 166 beats per minute. She was started on Cardizem infusion and subsequently admitted to the telemetry chen for continued management of new onset atrial flutter. On admission to the telemetry chen, the patient was evaluated by Dr. Corona of Cardiology. Cardiac enzymes which were cycled since admission were noted troponin value of 14. She was taken urgently to the cardiac catheterization lab with findings described above. After successful stenting, she was transferred back to the telemetry chen for continued postprocedure care. The remainder of her hospital course was uncomplicated and on hospital day #3, she was cleared for discharge home. CONDITION: Fair, improved. DISPOSITION: Home. DISCHARGE MEDICATIONS: Aspirin 81 mg p.o. daily, Plavix 75 mg p.o. daily, metformin 1000 mg p.o. b.i.d., simvastatin 20 mg p.o. daily, losartan 25 mg p.o. daily and metoprolol 100 mg p.o. b.i.d. DISCHARGE INSTRUCTIONS: The patient was advised to adhere to postprocedure instructions as per Dr. Corona. FOLLOWUP: The patient to follow up with her PMD within 1 week of discharge. The patient to follow up with Dr. Corona as scheduled. Porter Puente MD
== END 2019-03-20 11:08 | disposition home or self-care (01) | DRG 247 ==
LOC: ED 17:25 → ERH 19:20 → 2RSO 22:19 → OBSVTOIN 03-18 11:29 → 2RSO 03-18 12:00
PROVIDERS: ADMIT Student in an Organized Health Care Education/Training Program; ATTEND Student in an Organized Health Care Education/Training Program
PROC: 027035Z Dilation of Coronary Artery, One Artery with Two Drug-eluting Intraluminal Devices, Percutaneous Approach (ICD-10-PCS; principal; 2019-03-18)
PROC: 4A023N7 Measurement of Cardiac Sampling and Pressure, Left Heart, Percutaneous Approach (ICD-10-PCS; 2019-03-18)
PROC: B2111ZZ Fluoroscopy of Multiple Coronary Arteries using Low Osmolar Contrast (ICD-10-PCS; 2019-03-18)
PROC: B2151ZZ Fluoroscopy of Left Heart using Low Osmolar Contrast (ICD-10-PCS; 2019-03-18)
DX: I21.4 Non-ST elevation (NSTEMI) myocardial infarction (principal); I48.92 Unspecified atrial flutter; I45.89 Other specified conduction disorders; I16.1 Hypertensive emergency; I25.10 Atherosclerotic heart disease of native coronary artery without angina pectoris; I10 Essential (primary) hypertension; E11.51 Type 2 diabetes mellitus with diabetic peripheral angiopathy without gangrene; I48.0 Paroxysmal atrial fibrillation; I16.0 Hypertensive urgency; M54.30 Sciatica, unspecified side; Z87.891 Personal history of nicotine dependence; E78.5 Hyperlipidemia, unspecified; Z79.4 Long term (current) use of insulin; Z88.8 Allergy status to other drugs, medicaments and biological substances

== ENCOUNTER 2019-03-22 20:38 | Inpatient (IN) | payer MEDICARE ==
[2019-03-22 20:43] VITALS: BMI 24.3
[2019-03-22] MEDS ORDERED: Nitroglycerin 2% Ointment Foilpak UD TOP STA (20:59)
--- NOTE | 2019-03-22 20:59 | ED PDOC ---
Arrival/HPI - General Chief Complaint: Chest Pain Time Seen by Provider: 03/22/19 20:39 Historian: Patient, Family - History of Present Illness Narrative History of Present Illness (Text): 03/22/19 20:57 73 year old female, whose past medical history includes diabetes, left metatarsal amputation, and cardiac stents, presents to the emergency department complaining of chest pain and palpitations tonight. Patient was recently di scharged s/p stents. Patient denies any fever, chills, shortness of breath, nausea, vomiting, diarrhea, urinary symptoms, back pain, neck pain, headache, dizziness, or any other complaints. Manager Configuration: Dr. Brownlee PMD: Dr. Puente Time/Duration: Other (tonight) Symptom Onset: Sudden Symptom Course: Unchanged Activities at Onset: Light Context: Home Past Medical History - Provider Review Nursing Documentation Reviewed: Yes - Past History Past History: Non-Contributing - Infectious Disease Hx of Infectious Diseases: None - Tetanus Immunization Tetanus Immunization: Unknown - Cardiac Hx Cardiac Disorders: Yes Hx FL: Yes Hx Hypertension: Yes Other/Comment: 2 stents - Pulmonary Hx Respiratory Disorders: No - Neurological Hx Neurological Disorder: Yes (neuropathy ble) Hx Dementia: No (family history) - HEENT Hx HEENT Disorder: Yes Hx Cataracts: Yes (with sx) - Renal Hx Renal Disorder: No - Endocrine/Metabolic Hx Endocrine Disorders: Yes Hx Diabetes Mellitus Type 2: Yes - Hematological/Oncological Hx Blood Disorders: No - Integumentary Hx Dermatological Disorder: No - Musculoskeletal/Rheumatological Hx Musculoskeletal Disorders: No Hx Falls: No Hx Unsteady Gait: Yes - Gastrointestinal Hx Gastrointestinal Disorders: Yes (constipation) - Genitourinary/Gynecological Hx Genitourinary Disorders: No Hx Urinary Tract Infection: Yes - Psychiatric Hx Psychophysiologic Disorder: No Hx Substance Use: No - Surgical History Hx Cardiac Catheterization: Yes - Anesthesia Hx Anesthesia Reactions: No Hx Malignant Hyperthermia: No - Suicidal Assessment Feels Threatened In Home Enviroment: No Family/Social History - Physician Review Nursing Documentation Reviewed: Yes Family/Social History: No Known Family HX Smoking Status: Never Smoked Hx Alcohol Use: No Hx Substance Use: No Hx Substance Use Treatment: No Allergies/Home Meds Allergies/Adverse Reactions: Allergies aspartame Allergy (Mild, Verified 03/22/19 20:47) HEADACHE atorvastatin calcium [From Lipitor] Allergy (Verified 03/22/19 20:47) Pt gets 'hyper' oxycodone HCl [From Percocet] Allergy (Verified 03/22/19 20:47) SHORTNESS OF BREATH Equal Allergy (Uncoded 03/22/19 20:47) HEADACHE Home Medications: Home Meds Medication Instructions Recorded Confirmed Aspirin [Ecotrin] 81 mg PO DAILY 05/21/16 03/22/19 Losartan [Cozaar] 25 mg PO DAILY 05/21/16 03/22/19 Insulin Detemir [Levemir] 10 unit SC ACLD 08/29/17 03/22/19 Metformin HCl [Glucophage] 1,000 mg PO BID 08/29/17 03/22/19 Simvastatin [Zocor] 20 mg PO DAILY 08/29/17 03/22/19 Cholecalciferol (Vitamin D3) 2,000 unit PO DAILY 10/02/17 03/22/19 [Vitamin D3] Insulin Aspart, Recombinant 3 - 4 unit SC AC PRN 10/02/17 03/22/19 [Novolog] Multivit-Min/FA/Lycopen/Lutein 1 tab PO DAILY 10/02/17 03/22/19 [Centrum Silver Tablet] Pregabalin [Lyrica] 100 mg PO HS 03/17/19 03/22/19 Apixaban [Eliquis] 2.5 mg PO BID 03/20/19 03/22/19 Clopidogrel Bisulfate [Plavix] 75 mg PO DAILY 03/20/19 03/22/19 Review of Systems - Physician Review All systems were reviewed & negative as marked: Yes - Review of Systems Constitutional: absent: Fevers, Other (chills) Respiratory: absent: SOB Cardiovascular: Chest Pain, Palpitations Gastrointestinal: absent: Diarrhea, Nausea, Vomiting Genitourinary Female: absent: Dysuria, Frequency, Hematuria Musculoskeletal: absent: Back Pain, Neck Pain Neurological: absent: Headache, Dizziness Physical Exam Vital Signs Reviewed: Yes Vital Signs Temp Pulse Resp BP Pulse Ox 03/22/19 20:46 97.4 F L 167 H 19 129/85 99 Temperature: Afebrile Blood Pressure: Normal Pulse: Tachycardic Respiratory Rate: Normal Appearance: Positive for: Well-Appearing, Non-Toxic, Comfortable Pain Distress: None Mental Status: Positive for: Alert and Oriented X 3 - Systems Exam Head: Present: Atraumatic, Normocephalic Pupils: Present: PERRL Extroacular Muscles: Present: EOMI Conjunctiva: Present: Normal Mouth: Present: Moist Mucous Membranes Neck: Present: Normal Range of Motion Respiratory/Chest: Present: Clear to Auscultation, Good Air Exchange. No: Respiratory Distress, Accessory Muscle Use Cardiovascular: Present: Tachycardic. No: Murmurs Abdomen: No: Tenderness, Distention, Peritoneal Signs Back: Present: Normal Inspection Upper Extremity: Present: Normal Inspection. No: Cyanosis, Edema Lower Extremity: Present: Normal Inspection. No: Edema Neurological: Present: GCS=15, CN II-XII Intact, Speech Normal Skin: Present: Warm, Dry, Normal Color. No: Rashes Psychiatric: Present: Alert, Oriented x 3, Normal Insight, Normal Concentration Medical Decision Making ED Course and Treatment: 03/22/19 20:50 Impression: 73 year old female presents complaining of chest pain and palpitations that began tonight. Plan: -- EKG -- Labs -- Chest X-ray -- Cardizem, Nitro-bid -- O2 via Nasal Cannula -- Urinalysis -- Reassess and disposition Prior Visits: Notes and results from previous visits were reviewed. Progress Notes: EKG shows A-flutter rapid heart rate at 168 BPM. Interpreted by me. 10mg of Cardizem administered 03/22/19 20:55 EKG shows NSR at 83 BPM. Interpreted by me. 03/22/19 21:[address] Puente who is aware and agrees with the plan. Accepts patient into his service. felt pt ekg svt possible a flutter , immediately broke with Cardizem - Lab Interpretations I have reviewed the lab results: Yes - RAD Interpretation Follow Up Manager: ED Physician - EKG Interpretation Interpreted by ED Physician: Yes Type: 12 lead EKG - Scribe Statement The provider has reviewed the documentation as recorded by the Leny Campbell Provider Scribe Attestation: All medical record entries made by the Scribe were at my direction and personally dictated by me. I have reviewed the chart and agree that the record accurately reflects my personal performance of the history, physical exam, medical decision making, and the department course for this patient. I have also personally directed, reviewed, and agree with the discharge instructions and disposition. Disposition/Present on Arrival - Present on Arrival Any Indicators Present on Arrival: No History of DVT/PE: No History of Uncontrolled Diabetes: No Urinary Catheter: No History of Decub. Ulcer: No History Surgical Site Infection Following: None - Disposition Have Diagnosis and Disposition been Completed?: Yes Diagnosis: Palpitation, Chest pain, Supraventricular tachycardia Disposition: HOSPITALIZED Disposition Time: 21:50 Condition: FAIR
[2019-03-22 21:23] LABS: BASO # 0.03 K/mm3 (0.0-2.0); BASO % 0.3 % (0.0-3.0); EOS # 0.2 (0.0-0.7); EOS % 2.3 % (1.5-5.0); HEMOGLOBIN 11.3 g/dL (12.0-16.0); LYMPH # 3.1 (1.2-3.4); LYMPH % 31.8 % (22.0-35.0); MEAN CELL VOLUME 84.5 fl (80.0-105.0); MEAN CORPUSCULAR HEMOGLOBIN 27.8 pg (25.0-35.0); MEAN CORPUSCULAR HGB CONC 32.8 g/dl (31.0-37.0); MEAN PLATELET VOLUME 10.9 fl (7.0-11.0); MONO # 0.6 (0.1-0.6); MONO % 5.9 % (1.0-6.0); RBC 4.07 10^6/uL (3.5-6.1); RED CELL DISTRIBUTION WIDTH 13.9 % (11.5-14.5); WHITE BLOOD COUNT 9.7 10^3/uL (4.5-11.0)
[2019-03-22 21:27] LABS: INR 1.23; PARTIAL THROMBOPLASTIN TIME 36.4 Seconds (26.9-38.3); PROTHROMBIN TIME 13.7 SECONDS (9.4-12.5)
[2019-03-22 21:56] LABS: URINE APPEARANCE CLEAR (CLEAR); URINE BILIRUBIN NEGATIVE (NEGATIVE); URINE BLOOD NEGATIVE (NEGATIVE); URINE GLUCOSE (UA) 250 mg/dL (NEGATIVE); URINE LEUKOCYTE ESTERASE NEGATIVE Leu/uL (NEGATIVE); URINE PROTEIN 100 mg/dL (<30 mg/dL); URINE UROBILINOGEN 0.2 E.U./dL (<1 E.U./dL)
[2019-03-22 22:03] LABS: ALB/GLOB RATIO 1.3 (1.1-1.8); ALBUMIN 4.4 g/dL (3.0-4.8); TROPONIN I 0.27 ng/mL
[2019-03-23 02:01] VITALS: RESP 18
--- NOTE | 2019-03-23 07:45 | RAD ---
Date of service: 03/22/2019 HISTORY: cp COMPARISON: Portable chest 03/17/2019. TECHNIQUE: 1 view obtained. FINDINGS: LUNGS: No active pulmonary disease. PLEURA: No significant pleural effusion identified, no pneumothorax apparent. CARDIOVASCULAR: Calcific atherosclerotic changes are seen related to the thoracic aorta. Normal cardiac size. No pulmonary vascular congestion. OSSEOUS STRUCTURES: No significant abnormalities. VISUALIZED UPPER ABDOMEN: Normal. OTHER FINDINGS: None. IMPRESSION: No interval acute cardiopulmonary disease appreciated.
[2019-03-23] MEDS ORDERED: Digoxin 250 mcg (0.25 mg) Tab PO STA (08:05)
[2019-03-23] MEDS: Insulin Reg-LOW-Coverage SC SCH ×2 (08:08→13:27)
[2019-03-23] MEDS ORDERED: Magnesium Oxide 400 mg Tab UD PO SCH (10:00)
--- NOTE | 2019-03-23 10:45 | CP.PCM.APN ---
Subjective - Date & Time of Evaluation Date of Evaluation: 03/23/19 Time of Evaluation: 09:00 - Subjective Subjective: pt seen and examined at bedside, pt denies cp or SOB , pt ambulate to BR with no difficulty Review of Systems - Review of Systems All systems: reviewed and no additional remarkable complaints except Objective - Vital Signs/Intake and Output Vital Signs (last 24 hours): Temp Pulse Resp BP Pulse Ox 97.7 F 73 18 154/63 H 99 03/23/19 06:00 03/23/19 10:08 03/23/19 06:00 03/23/19 10:08 03/23/19 06:00 Intake and Output: 03/23/19 03/23/19 06:59 18:59 Intake Total 0 Output Total 0 Balance 0 - Medications Medications: Current Medications Acetaminophen (Tylenol 325mg Tab) 650 mg PO Q4H PRN PRN Reason: Pain, Mild (1-3) Apixaban (Eliquis) 2.5 mg PO BID [facility]; Protocol Last Admin: 03/23/19 10:08 Dose: 2.5 mg Aspirin (Ecotrin) 81 mg PO DAILY [facility] Last Admin: 03/23/19 10:08 Dose: 81 mg Clopidogrel Bisulfate (Plavix) 75 mg PO DAILY [facility] Last Admin: 03/23/19 10:08 Dose: 75 mg Digoxin (Digoxin) 0.125 mg PO 1400 SUSY Insulin Human Regular (Humulin R Low) 0 units SC ACHS [facility]; Protocol Last Admin: 03/23/19 08:08 Dose: 2 unit Magnesium Oxide (Mag-Ox) 400 mg PO DAILY [facility] Stop: 03/26/19 10:01 Last Admin: 03/23/19 10:08 Dose: 400 mg Metoprolol Tartrate (Lopressor) 100 mg PO Q12 [facility] Last Admin: 03/23/19 10:08 Dose: 100 mg - Labs Labs: 03/22/19 21:02 03/22/19 21:02 PT 13.7 SECONDS (9.4-12.5) H 03/22/19 21:02 INR 1.23 03/22/19 21:02 APTT 36.4 Seconds (26.9-38.3) 03/22/19 21:02 - Constitutional Appears: Non-toxic - Head Exam Head Exam: ATRAUMATIC, NORMAL INSPECTION - Eye Exam Eye Exam: Normal appearance - ENT Exam ENT Exam: Mucous Membranes Moist - Respiratory Exam Respiratory Exam: Clear to Ausculation Bilateral, NORMAL BREATHING PATTERN - Cardiovascular Exam Cardiovascular Exam: RRR, +S1, +S2 - GI/Abdominal Exam GI & Abdominal Exam: Soft, Normal Bowel Sounds - Rectal Exam Rectal Exam: Deferred - Neurological Exam Neurological Exam: Alert, Awake, Oriented x3 Neuro motor strength exam: Left Upper Extremity: 5, Right Upper Extremity: 5, Left Lower Extremity: 5, Right Lower Extremity: 5 Additional comments: MARTINEZ - Skin Skin Exam: Dry, Intact Assessment and Plan - Assessment and Plan (Free Text) Plan: ITS Impressions Chest X-Ray 03/22/19 20:58 IMPRESSION: No interval acute cardiopulmonary disease appreciated. A/P 73 yr old white female with pmh sig for dm, cad s/p recent cardiac stents who presented with CP. 1.chest pain Pt with elevated troponins 0.27 and 0.57 with 3rd trop pending will follow up with card recs ? additional cardiac intervention 2.SVt s/p iv cardizem NSR on tele presently 3 cad s/p pci on Asa and Plavix regimen Will follow BPCI/TIC - BPCIA/TIC Educated pt/family on BPCIA/CIR/Med to Bed Programs: Yes Flyers given, including CMS Beneficiary letter: Yes Pt/family verbalized understanding & agreed to program: Yes
--- NOTE | 2019-03-23 10:52 | CARD ---
APPROVED REPORT Date of service: 03/22/2019 EKG Measurement Heart [id number] <Conclusion> Normal sinus rhythm with sinus arrhythmia ST & T wave abnormality, consider lateral ischemia Abnormal ECG
--- NOTE | 2019-03-23 10:54 | CARD ---
APPROVED REPORT Date of service: 03/22/2019 EKG Measurement Heart [id number] <Conclusion> Supraventricular tachycardia ST & T wave abnormality, consider lateral ischemia Abnormal ECG
[2019-03-23 12:01] VITALS: BP 157/71; PULSE 60; TEMP 98
[2019-03-23 13:28] VITALS: PULSE 63
[2019-03-23] MEDS ORDERED: Digoxin 125 mcg (0.125 mg) Tab PO SCH (14:00)
[2019-03-23 14:15] VITALS: O2SAT 97
--- NOTE | 2019-03-23 16:15 | CON ---
DATE: 03/23/2019 REASON FOR ADMISSION Chest pain, tachycardia. HISTORY OF PRESENT ILLNESS: This is a 73-year-old woman well known to me with a history of coronary artery disease and recent SVT, who underwent PCI for LAD last week. She was home and felt rapid heart rate and chest discomfort. She was brought to the emergency room and noted to be in SVT with heart rate of 168 beats per minute. This broke with IV Cardizem. Her chest pain resolved after sikhism of sinus rhythm. Her troponin was 0.27 and her last troponin on 03/19/2019 was 5.17. PAST MEDICAL HISTORY: Notable for the problems mentioned above. Recent cardiac catheterization revealed chronically occluded small RCA with severe LAD disease as well as significant circumflex lesion. Plans have been made for stage PCI of the left circumflex within the next several weeks. She does have history of hypertension, diabetes, and hyperlipidemia. MEDICATIONS AT HOME: Include aspirin, Plavix, Eliquis 2.5 mg b.i.d., losartan 25 mg daily, Lyrica, insulin, and Crestor 20 mg daily. ALLERGIES: SHE HAS HAD A REACTION TO OXYCODONE AND LIPITOR IN THE PAST. SOCIAL HISTORY: She is a former smoker, but quit many years ago. She denies alcohol use. She lives with her family. FAMILY HISTORY: Both parents are from age-related illness. No family history of premature heart disease. REVIEW OF SYSTEMS: A 12-point review of systems is notable mainly for the problems mentioned above. She has had no exertional dyspnea, bleeding,or abdominal pain. PHYSICAL EXAMINATION: GENERAL: She is a middle-aged woman who appears comfortable at the present time. VITAL SIGNS: Her blood pressure is 122/50 with a pulse of 66 in sinus, respirations are 16. She is afebrile. HEENT: Normocephalic, atraumatic. NECK: Supple. No JVD noted. CHEST: Clear to auscultation and percussion. HEART: PMI in normal position with a soft systolic murmur at the left sternal border. ABDOMEN: Soft, nontender with normoactive bowel sounds. EXTREMITIES: No clubbing, cyanosis, or edema. SKIN: Warm and dry. PSYCHIATRIC: Normal mood and affect. NEUROLOGICAL: Alert and oriented x3. No gross motor or sensory deficits noted. DIAGNOSTIC DATA: Potassium 5.3, BUN and creatinine 34 and 1.4, glucose is 312. CK is 50 with a troponin of 0.27. White count is 9.7, hemoglobin and hematocrit of 11.3.5 and 34.4, with a platelet count of 196,000. PT and PTT 13.7 and 36.4, magnesium 1.6. Initial electrocardiogram reveals SVT at 168 beats per minute with secondary ST-T changes. Followup electrocardiogram reveals sinus rhythm with nonspecific ST abnormalities. Chest x-ray revealed normal cardiac silhouette with clear lung link. IMPRESSION: 1. Recurrent atrial tachycardia, currently appears to be supraventricular tachycardia. Previously had evidence of atrial flutter on prior admission; therefore she was placed on higher dose beta-maurice and Eliquis. 2. Coronary artery disease status post recent [id number] elevation myocardial infarction status post percutaneous coronary intervention of left anterior descending artery with a residual circumflex lesion to be treated in the near future. 3. History of diabetes, suboptimal control. 4. Elevated troponin, appears to be trending down from a her infarct pattern of last week. Doubt new ischemic event. 5. Rest of problems as noted. RECOMMENDATIONS: Oral beta-maurice therapy will be resumed. Digoxin will be added for now for heart rate control. Aspirin, Plavix, and Eliquis will continue as well. If she has no other evidence of recurrent tachycardia, discharge home later today will be reasonable with a close patient followup. A staged PCI for left circumflex artery will be planned in the next several weeks. The need for compliance with medications was discussed with her as well. Thank you for this consultation. I will be happy to continue to arrange for outpatient followup. Jose Quispe MD ANJANA
--- NOTE | 2019-03-23 20:07 | HP ---
HISTORY OF PRESENT ILLNESS: The patient is a 73-year-old woman with a past medical history of CAD s/p recent NSTEMI s/p PCI with stent placement and new onset atrial flutter who presented for evaluation of palpitations and chest pain for several hours. She was admitted to [facility] 1 week ago for NSTEMI and new onset atrial flutter. She underwent successful PCI with ROSEMARIE stent placement to the LAD and circumflex lesions and was doing well post-procedure. On the day of presentation to the ED she reported sudden onset of palpitations and substernal chest pain. Due to her recent cardiac history she opted for ED evaluation. In the ED she was afebrile and normotensive but markedly tachycardic with a pulse in the 170s. An EKG demonstrated supraventricular tachycardia at a pulse of 168 beats per minute which broke with Cardizem 10 mg IV push. The patient reported subsequent resolution of her chest pain with return to normal sinus rhythm. She was subsequently admitted to the telemetry chen for continued management. PAST MEDICAL HISTORY: As per HPI, also hypertension, hyperlipidemia, insulin-dependent diabetes mellitus, sciatica and PVD s/p IR revascularization s/p LLE vascular bypass surgery. 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 ALLERGIES: Lipitor, Oxycodone and artificial sweeteners. MEDICATIONS: Aspirin 81 mg p.o. daily, Plavix 75 mg p.o. daily, Eliquis 2.5 mg p.o. b.i.d., Metoprolol 100 mg p.o. b.i.d., Losartan 25 mg p.o. daily, Simvastatin 20 mg p.o. daily, Metformin 1000 mg p.o. b.i.d., Lyrica 100 mg p.o. q.h.s., Levemir 10 units sc qhs and Novolog 3-4 units sc t.i.d. with meals. FAMILY HISTORY: Significant for hypertension and diabetes in her mother and alcoholism in her father. SOCIAL HISTORY: The patient denies any toxic habits. REVIEW OF SYSTEMS: A 12-point review of systems is negative except as per HPI. PHYSICAL EXAMINATION: VITAL SIGNS: Temperature 98, pulse 60, blood pressure 157/70, respiratory rate 18, oxygen saturation 99% on room air. GENERAL: No apparent distress. HEENT: PERRL, EOMI. No scleral icterus. No conjunctival pallor. NECK: No JVD, no bruits. LUNGS: Clear to auscultation. CARDIOVASCULAR: Irregularly irregular. Normal S1 and S2. Grade II/ JONO to LLSB. PMI not displaced. ABDOMEN: Normoactive bowel sounds, soft, nontender, and nondistended. EXTREMITIES: No edema. NEUROLOGIC: Awake, alert and oriented x 3. No focal motor deficits. LABORATORY DATA: WBC 9.7, hemoglobin 11, hematocrit 34, platelets 196. Sodium 140, potassium 5.3, chloride 102, bicarb 21, BUN 34, creatinine 1.4, glucose 312. Troponin 0.27, 0.57. ASSESSMENT: The patient is a 73-year-old woman with multiple medical comorbidities including CAD s/p recent NSTEMI s/p PCI with ROSEMARIE stent placement and new onset atrial flutter who presented with substernal chest pain and palpitations for several hours and was admitted for supraventricular tachycardia. PLAN: 1. Atrial tachycardia/Atrial flutter. Input from Dr. Quispe noted and appreciated. The patient has been started on Digoxin 0.125 mg p.o. daily to optimize rate control. Continue Metoprolol 100 mg p.o. q. 12 hours and Eliquis 2.5 mg p.o. b.i.d. 2. CAD s/p recent NSTEMI s/p PCI with stent placement. Input from Dr. Quispe noted. No evidence of ACS as troponin trending down from recent admission. Continue Aspirin 81 mg p.o. daily, Plavix 75 mg p.o. daily and Simvastatin 20 mg p.o. daily. 3. Hyperlipidemia. Continue Simvastatin 20 mg p.o. daily. 4. Hypertension. Blood pressure controlled. Continue Losartan 25 mg p.o. daily and Metoprolol 100 mg p.o. b.i.d. 5. Insulin-dependent diabetes mellitus. Continue Metformin 1000 mg p.o. b.i.d., Levemir 10 units sc qhs and high dose ISS. 6. Severe PVD s/p left lower extremity vascular bypass surgery. Continue Aspirin 81 mg p.o. daily and Simvastatin 20 mg p.o. daily. 7. Sciatica. Continue Lyrica 100 mg p.o. at bedtime. 8. Prophylaxis. GI prophylaxis not indicated as the patient is eating. DVT prophylaxis not indicated as she is on Eliquis. CODE STATUS: Full code. Potrer Puente MD MTDJimi
--- NOTE | 2019-03-25 03:04 | DS ---
ADMISSION DIAGNOSIS: Chest pain and palpitations. DISCHARGE DIAGNOSIS: Supraventricular tachycardia. SECONDARY DIAGNOSES: Atrial flutter, CAD status post recent non-ST elevated myocardial infarction status post percutaneous coronary intervention with stent placement, hyperlipidemia, hypertension, insulin-dependent diabetes mellitus, severe peripheral vascular disease status post left lower extremity vascular bypass surgery and sciatica. CONSULTATIONS: Dr. Corona (Cardiology). IMAGING STUDIES: Chest x-ray demonstrated no acute pathology. DIAGNOSTIC STUDIES: None. PROCEDURES: None. HISTORY OF PRESENT ILLNESS: The patient is a 73-year-old woman with past medical history of CAD status post recent non-STEMI status post PCI with stent placement and new onset atrial flutter, who presented for evaluation of palpitations and chest pain for several hours. She was admitted to [facility] 1 week ago for non-STEMI and new onset atrial flutter. She underwent successful PCI with ROSEMARIE stent placement to the LAD and circumflex lesions and was doing well post procedure. On the day of presentation to the ED she reported sudden onset of palpitations and substernal chest pain, due to her recent cardiac history, she opted for ED evaluation. In the ED, she was afebrile and normotensive, but markedly tachycardic with a pulse in 170s and EKG demonstrated supraventricular tachycardia at a pulse of 168 beats per minute which broke with Cardizem 10 mg IV push. The patient reported subsequent resolution of her chest pain with return to normal sinus rhythm. She was subsequently admitted to the telemetry chen for continued management. HOSPITAL COURSE: Upon admission to the telemetry chen, she was evaluated by Dr. Corona of Cardiology and was started on digoxin 125 mcg p.o. daily to optimize rate control. Cardiac enzymes were obtained in the emergency department and were noted to be trending down from her prior admission and there was no concern for an acute coronary syndrome. Due to her satisfactory rate control, she was cleared for discharge home by Dr. Corona. CONDITION: Fair, improved. DISPOSITION: Home. DISCHARGE MEDICATIONS: Aspirin 81 mg p.o. daily, Plavix 75 mg p.o. daily, Eliquis 2.5 mg p.o. b.i.d., metoprolol 100 mg p.o. b.i.d., digoxin 125 mcg p.o. daily, metformin 1000 mg p.o. b.i.d., simvastatin 20 mg p.o. daily, losartan 25 mg p.o. daily, Levemir 10 units subcutaneously at bedtime, NovoLog 3 to 4 units subcutaneously t.i.d. and Lyrica 100 mg p.o. at bedtime. DISCHARGE INSTRUCTIONS: The patient was advised if she has any recurrence of her symptoms to present to her PMD or to the nearest ED immediately. FOLLOWUP: The patient to follow up with her PMD within 1 week of discharge. The patient to follow up with Dr. Corona as scheduled. Thank you Porter Puente MD
== END 2019-03-23 16:28 | disposition home or self-care (01) | DRG 282 ==
LOC: ED 20:38 → ERH 22:06 → 2RNO 23:08
PROVIDERS: ADMIT Internal Medicine; ATTEND Internal Medicine
DX: I47.1 Supraventricular tachycardia (principal); I21.4 Non-ST elevation (NSTEMI) myocardial infarction; I48.92 Unspecified atrial flutter; R07.9 Chest pain, unspecified; I10 Essential (primary) hypertension; I25.10 Atherosclerotic heart disease of native coronary artery without angina pectoris; E78.5 Hyperlipidemia, unspecified; M54.30 Sciatica, unspecified side; E11.51 Type 2 diabetes mellitus with diabetic peripheral angiopathy without gangrene; Z79.01 Long term (current) use of anticoagulants; Z79.02 Long term (current) use of antithrombotics/antiplatelets; Z87.891 Personal history of nicotine dependence; Z95.5 Presence of coronary angioplasty implant and graft; Z79.4 Long term (current) use of insulin; Z79.82 Long term (current) use of aspirin; Z79.899 Other long term (current) drug therapy; Z82.49 Family history of ischemic heart disease and other diseases of the circulatory system; Z83.3 Family history of diabetes mellitus; Z81.1 Family history of alcohol abuse and dependence